=== PATIENT | female | born 1980 | race Caucasian/White ===

== ENCOUNTER 2021-05-15 11:32 | Outpatient (REF) | payer OTHER, SELFPAY ==
--- NOTE | ~2021-05-15 | XR_ITS ---
EXAMINATION: XR KNEE, RIGHT CLINICAL INFORMATION: Pain. COMPARISON: None TECHNIQUE: Four views of the right knee. FINDINGS: Normal alignment. Joint spaces are maintained. No visible acute fracture or dislocation. Moderate to large joint effusion. XR/XR knee RT 4V IMPRESSION: Moderate to large joint effusion. No radiographically evident acute fracture seen. Further evaluation with MRI as clinically warranted.
== END 2021-05-15 11:33 | disposition home or self-care (01) ==
LOC: HO.HMGCX 11:32
PROVIDERS: Visit Provider Internal Medicine
DX: S83.91XD Sprain of unspecified site of right knee, subsequent encounter (principal)
CPT/HCPCS: 73564

== ENCOUNTER 2023-01-07 08:00 | Outpatient (AMB) | payer OTHER, SELFPAY ==
--- NOTE | 2023-01-07 08:01 | AM.OFFWIN_ITS ---
Intake Vital Signs 01/07/23 08:06 Height 5 ft 1 in Weight 172 lb BMI 32.5 BP 110/62 Blood Pressure Location Lt brachial Position Sitting Pulse 79 Pulse Source Pulse Oximeter Temp 97.8 F Temp Source Temporal Artery Scan Pulse Oximetry (%) 98 Intake Visit Reasons: EP LT knee Intake Note: pt is here for c/o left knee pain with swelling, yesterday while playing softball Patient Tobacco Use Status: Never used Tobacco Allergies amoxicillin Allergy (Mild, Verified 01/07/23 08:52) Rash Medication List - Last Reconciled 01/07/23 by Kameron Servin MD meloxicam 15 mg PO DAILY Do you need a note to return to daycare/school/sports/work: Yes HPI EP LT knee HPI Details 42-year-old female presents to the [facility] for a sick visit. Patient is reporting swelling in the left knee since the past 2 days. Symptoms started after she slipped while running to a base, while playing softball. She could not play anymore after the fall. Walking with a limp. PFSH Social History Patient Tobacco Use Status: Never used Tobacco Physical Exam Vital Signs: Last Vital Signs Temp 97.8 F 01/07/23 08:06 Pulse 79 01/07/23 08:06 BP 110/62 01/07/23 08:06 Pulse Ox 98 01/07/23 08:06 BMI result Body Mass Index 32.5 Extrem Other: Left leg: Swelling over and above the patella. Pain on flexion of the knee. Full extension. Assessment & Plan Assessment & Plan (1) Sprain of left knee: Code(s): S83.92XA - Sprain of unspecified site of left knee, initial encounter Plan: Keep the leg elevated. X-ray images were personally reviewed by me. Loose body noted. Significant effusion. Patient was advised to keep the foot elevated. Knee splint provided. Anti inflammatories ordered. If symptoms do not improve in a week, she should schedule an appointment with her PCP to get an orthopedic referral. Medications: New meloxicam 15 mg PO DAILY 14 tabs 0RF Coding Level of Care Code Est Pt Level 4 (89750) Diagnoses Sprain of left knee S83.92XA
[2023-01-07 08:06] VITALS: BP 110/62; PULSE 79; TEMP 36.6; O2SAT 98; BMI 32.5
== END 2023-01-07 08:56 | disposition home or self-care (01) ==
PROVIDERS: PCP Internal Medicine; Visit Provider Internal Medicine
DX: S83.92XA Sprain of unspecified site of left knee, initial encounter (principal)
CPT/HCPCS: 99214

== ENCOUNTER 2023-01-07 08:16 | Outpatient (REF) | payer OTHER, SELFPAY ==
--- NOTE | ~2023-01-07 | XR_ITS ---
EXAMINATION: XR KNEE, LEFT CLINICAL INFORMATION: Left knee sprain. COMPARISON: None available. TECHNIQUE: Four views of the left knee. FINDINGS: Alignment is anatomic. Joint spaces are maintained. No displaced fracture. Moderate suprapatellar joint effusion. XR/XR knee LT 4V IMPRESSION: Moderate suprapatellar joint effusion.
== END 2023-01-07 08:17 | disposition home or self-care (01) ==
LOC: HO.HMGCX 08:16
PROVIDERS: PCP Internal Medicine; Visit Provider Internal Medicine
DX: S83.92XD Sprain of unspecified site of left knee, subsequent encounter (principal)
CPT/HCPCS: 73564

== ENCOUNTER 2023-03-08 07:33 | Outpatient (AMB) | payer OTHER, SELFPAY ==
[2023-03-08 07:47] VITALS: BP 122/74; PULSE 76; O2SAT 97; BMI 32.7
--- NOTE | 2023-03-08 07:47 | MHC.PC.OV ---
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 Required: No Accompanied by: Self / Same As Patient Allergies amoxicillin Allergy (Mild, Verified 03/08/23 07:47) Rash Medication List - Last Reconciled 03/08/23 by Teri Rodrigues MD No Known Home Meds Tobacco use date assessed: 03/08/23 Dental Screening Dental Screen Date: 03/08/23 Did you have a dental visit in the last 12 months?: Yes Did you have a dental problem in the last 6 months where you did not have access to dental care?: No Was dental information given to patient?: Patient has dentist HPI 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 Pt had L knee injury while playing softball 2 months ago and still with pain at medial aspect of her left knee worse when walking up or down his stairs or stretching. Patient reports intermittent knee swelling. 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 1. Little interest or pleasure in doing things: not at all 2. Feeling down, depressed, or hopeless: not at all 3. Trouble falling or staying asleep, or sleeping too much: not at all 4. Feeling tired or having little energy: not at all 5. Poor appetite or overeating: not at all 6. Feeling bad about yourself - or that you are a failure or have let yourself or your family down: not at all 7. Trouble concentrating on things, such as reading the newspaper or watching television: not at all 8. Moving or speaking so slowly that other people could have noticed. Or the opposite - being so fidgety or restless that you have been moving around a lot more than usual: not at all 9. Thoughts that you would be better off or of hurting yourself in some way: not at all Total score: 0 Depression Screening Interpretation: Negative Depression Screening Done: Yes 59991 - PHQ-9 Billing: Yes Source: Developed by Drs. Jeff Pemberton, Jenn Chance, Mario Alberto Greene and colleagues, with an educational abundio from [employer]. Thrive Questionnaire Date Thrive assessed: 03/08/23 I am a: Patient What is your living situation today?: I have a steady place to live Within the past 12 months, did the food you bought not last and you didn't have the money to get more?: Never true Within the past 12 months, did you worry whether your food would run out before you got money to buy more?: Never true Do you have trouble paying for medicines?: No Do you have trouble getting transportation to medical appointments?: No Do you have trouble paying your heating and electricity bill?: No Do you have trouble taking care of your child, family member or friend?: No Do you have trouble with day-to-day activities such as bathing, preparing meals, shopping, managing finances, etc.?: No Are you currently unemployed and looking for a job?: No Are you interested in more education?: No Please select the resources that you would like help with: None Currently or been in a relationship where the following occur: no concerns reported AUDIT C Alcohol Use Questionnaire (AUDIT-C) 1. How often do you have a drink containing alcohol?: 2-4 times a month 2. How many drinks containing alcohol do you have on a typical day when you are drinking?: 1 or 2 3. How often do you have six or more drinks on one occasion?: Never Total Score: 2 Score Reviewed/Action Taken: Yes RENEE-7 AMB Questionnaire RENEE-7 Date RENEE - 7 assessed: 03/08/23 Feeling nervous, anxious, or on edge: 0 = Not at all Not being able to stop or control worryin = Not at all Worrying too much about different things: 0 = Not at all Trouble relaxin = Not at all Being so restless that it is hard to sit still: 0 = Not at all Becoming easily annoyed or irritable: 0 = Not at all Feeling afraid as if something awful might happen: 0 = Not at all Total RENEE-7 score (0-4 normal; 5-9 mild; 10-14 moderate; 15-21 severe): 0 Source: Developed by Drs. Jeff Pemberton, Jenn Chance, Mario Alberto Greene and colleagues, with an educational abundio from [employer]. RENEE-7 Assessment Billing RENEE-7 Assessment Tool: RENEE-7 Assessment 43984 Review of Systems Const All systems reviewed & are unremarkable except as noted in HPI and below Reports no additional complaints Eyes Reports no additional complaints ENT Reports no additional complaints Card Reports no additional complaints Resp Reports no additional complaints GI Reports no additional complaints Reports no additional complaints Physical exam (Primary Care) Vital Signs: Last Vital Signs Pulse 76 03/08/23 07:47 BP 122/74 03/08/23 07:47 Pulse Ox 97 03/08/23 07:47 Oxygen Delivery Method Room Air 03/08/23 07:47 BMI result Body Mass Index 32.7 Tobacco/Smoking Status: Tobacco use Status Tobacco use date assessed 03/08/23 03/08/23 07:49 Patient Tobacco Use Status Never used Tobacco 03/08/23 07:54 e-Cigarette/Vaping Use Never Used 03/08/23 07:54 PHQ-9: PHQ-9 Score PHQ-9: Total score 0 03/08/23 07:59 Depression Screening Interpretation: Negative Thrive Assessment: Date of Thrive Assessment Date Thrive assessed 03/08/23 03/08/23 07:59 Currently or been in a relationship where the following occur: no concerns reported Const General: no acute distress HENMT Head: Yes normal to inspection General nose exam: Normal external nose present Mouth: Normal oral and palatal mucosa present Throat: Yes posterior oropharynx normal Eyes General: appearance normal, both eyes and all related structures Neck Neck: Yes no lymphadenopathy and Yes supple Resp Effort & Inspection: normal respiratory effort Auscultation: clear to auscultation bilaterally Cardio Rhythm: regular rhythm Heart sounds: S1 normal heart sound present and S2 normal heart sound present GI Inspection: Yes normal to inspection Palpation (GI): Soft to palpation Percussion: Yes normal to percussion Auscultation: normal bowel sounds Extrem Other: Decreased range of motion of the left knee, medial aspect tenderness and soft tissue swelling Assessment and Plan Assessment & Plan (1) Annual physical exam: Code(s): Z00.00 - Encounter for general adult medical examination without abnormal findings Plan: WELL-BALANCED DIET REGULAR PHYSICAL ACTIVITY WEIGHT LOSS DISCUSSED WITH THE PATIENT. She will have a fasting blood work today. mammogram and colonoscopy will be scheduled. patient will return in 2 weeks for Pap smear (2) HPV (human papilloma virus) infection: Code(s): B97.7 - Papillomavirus as the cause of diseases classified elsewhere Plan: Return for Pap smear in 2 weeks (3) History of colposcopy: Comment: S/P bx >10 yrs Code(s): Z98.890 - Other specified postprocedural states (4) Medial meniscus tear: Code(s): S83.249A - Other tear of medial meniscus, current injury, unspecified knee, initial encounter Plan: Obtain MRI to evaluate for medial meniscus tear (5) Rectal bleeding: Code(s): K62.5 - Hemorrhage of anus and rectum Plan: Refer for colonoscopy Orders: Orders Comprehensive [place]. Panel Fast Today Z00.00 - Encounter for general adult medical examination without abnormal findings Complete Blood Count Auto Diff Today Z00.00 - Encounter for general adult medical examination without abnormal findings Lipid Panel Today Z00.00 - Encounter for general adult medical examination without abnormal findings TSH reflex Free T4 Today Z00.00 - Encounter for general adult medical examination without abnormal findings Vitamin D 25-OH Total Today Z00.00 - Encounter for general adult medical examination without abnormal findings MR knee LT wo con Today S83.249A - Other tear of medial meniscus, current injury, unspecified knee, initial encounter MM screening mammo BI Today Z12.31 - Encounter for screening mammogram for malignant neoplasm of breast HIV Ab/Ag Today Z00.00 - Encounter for general adult medical examination without abnormal findings Syphilis Screen Today Z00.00 - Encounter for general adult medical examination without abnormal findings CT NG by PCR Today Z00.00 - Encounter for general adult medical examination without abnormal findings Referrals Gastroenterology Referral K62.5 - Hemorrhage of anus and rectum, Z00.00 - Encounter for general adult medical examination without abnormal findings Coding Level of Care Code New Pt Prev Care 40-64y(89864) Diagnoses Annual physical exam Z00.00 HPV (human papilloma virus) infection B97.7 History of colposcopy Z98.890 Medial meniscus tear S83.249A Rectal bleeding K62.5 Additional Codes RENEE-7 Assessment Billing - RENEE-7 Assessment Tool: RENEE-7 Assessment [id number] ([id number])
== END 2023-03-08 08:39 | disposition home or self-care (01) ==
PROVIDERS: PCP Internal Medicine; Visit Provider Internal Medicine
DX: Z00.00 Encounter for general adult medical examination without abnormal findings (principal); B97.7 Papillomavirus as the cause of diseases classified elsewhere; Z98.890 Other specified postprocedural states; S83.249A Other tear of medial meniscus, current injury, unspecified knee, initial encounter; K62.5 Hemorrhage of anus and rectum
CPT/HCPCS: 99386

== ENCOUNTER 2023-03-08 08:28 | Outpatient (REF) | payer OTHER, SELFPAY ==
[2023-03-08 11:16] LABS: MANUAL DIFF FLAG NO
[2023-03-08 11:22] LABS: Basophils Absolute Auto 0.1 X10*3/uL (0.0-0.2); Basophils Percent Auto 0.6 % (0-2); Eosinophils Absolute Auto 0.3 X10*3/uL (0.0-0.4); Eosinophils Percent Auto 3.6 % (0-4); Hemoglobin 14.8 g/dl (12.0-16.0); Imm Gran Abs Auto 0.06 X10*3/uL (0.00-0.03); Imm Gran Pct Auto 0.7 % (0.0-0.4); Lymphocytes Absolute Auto 2.1 X10*3/uL (1.2-4.9); Lymphocytes Percent Auto 24.3 % (20-40); Mean Corpuscular HGB Conc 32.9 g/dl (31.0-35.0); Mean Corpuscular Hemoglobin 30.6 pg (27.0-33.0); Mean Corpuscular Volume 93.2 fL (80.0-98.0); Mean Platelet Volume 10.4 fL (9.4-12.3); Monocytes Absolute Auto 0.8 X10*3/uL (0.1-1.2); Monocytes Percent Auto 8.5 % (2-11); Neutrophils Absolute Auto 5.5 x10*3/uL (2.0-8.3); Neutrophils Percent Auto 62.3 % (45-73); Platelet Count 403 X10*3/uL (160-400); Red Blood Count 4.83 X10*6/uL (4.20-5.50); Red Cell Distribution Width 13.4 % (11.0-16.0); White Blood Count 8.8 X10*3/uL (4.8-10.8)
[2023-03-08 11:51] LABS: Alanine Aminotransferase 14 U/L (0-31); Albumin Level 4.2 g/dL (3.5-5.0); Alkaline Phosphatase 66 U/L (39-117); Anion Gap 12 (12-20); Aspartate Amino Transferase 17 U/L (5-31); Bilirubin Total 0.3 mg/dL (0.0-1.0); Blood Urea Nitrogen 14 mg/dL (9-16); Calcium 9.3 mg/dL (8.4-10.2); Carbon Dioxide 29 mmol/L (22-29); Chloride 106 mmol/L (96-108); Cholesterol 247 mg/dL (<200); Estimated Glomerular Filt Rate > 60; Glucose Fasting 93 mg/dL (60-99); HDL Cholesterol 61 mg/dL (>40); LDL Cholesterol Calculated 149 mg/dL (<100); Potassium 4.7 mmol/L (3.3-5.1); Sodium 142 mmol/L (135-145); Total Protein 7.6 g/dL (6.5-8.0); Triglycerides 188 mg/dL (<150)
[2023-03-08 12:02] LABS: HIV AB/AG Nonreactive (Nonreactive); HIV Num 1 0.05 S/CO (0.00-0.99)
[2023-03-08 12:05] LABS: Syphilis Screen Nonreactive (Nonreactive)
[2023-03-08 12:08] LABS: TSH reflex Free T4 1.69 uIU/mL (0.32-4.0); Vitamin D 25-OH Total 25.1 ng/mL (>30)
== END 2023-03-08 08:29 | disposition home or self-care (01) ==
LOC: HO.HMGCLDS 08:28
PROVIDERS: PCP Internal Medicine; Visit Provider Internal Medicine
DX: Z00.00 Encounter for general adult medical examination without abnormal findings (principal); Z11.4 Encounter for screening for human immunodeficiency virus [HIV]
CPT/HCPCS: 36415; 80053; 80061; 82306; 84443; 85025; 86780; 87389

== ENCOUNTER 2023-03-12 13:26 | Outpatient (REF) | payer OTHER, SELFPAY | END 2023-03-12 13:27 | disposition home or self-care (01) | LOC: HO.LAB 13:26 | PROVIDERS: Visit Provider Internal Medicine | DX: Z13.89 Encounter for screening for other disorder (principal) ==

== ENCOUNTER 2023-03-25 13:24 | Outpatient (AMB) | payer OTHER, SELFPAY ==
--- NOTE | 2023-03-25 13:30 | A.OFFPC_ITS ---
Vital Signs 03/25/23 13:31 Height 5 ft 1 in Weight 170 lb BMI 32.1 BP 118/76 Blood Pressure Location Rt brachial Position Sitting Pulse 94 Pulse Source Pulse Oximeter Pulse Oximetry (%) 99 Oxygen Delivery Method Room Air Intake Visit Reasons: Pap Per Intake Note: Pt is here today for a follow up to have pap done. Allergies amoxicillin Allergy (Mild, Verified 03/25/23 13:35) Rash Medication List - Last Reconciled 03/25/23 by Teri Rodrigues MD No Known Home Meds Tobacco use date assessed: 03/25/23 Dental Screening Dental Screen Date: 03/25/23 Did you have a dental visit in the last 12 months?: Yes Did you have a dental problem in the last 6 months where you did not have access to dental care?: No Was dental information given to patient?: Patient has dentist HPI Pap Per HPI Details Patient presents for Pap smear. She denies complaints. 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 1. Little interest or pleasure in doing things: not at all 2. Feeling down, depressed, or hopeless: not at all 3. Trouble falling or staying asleep, or sleeping too much: not at all 4. Feeling tired or having little energy: not at all 5. Poor appetite or overeating: not at all 6. Feeling bad about yourself - or that you are a failure or have let yourself or your family down: not at all 7. Trouble concentrating on things, such as reading the newspaper or watching television: not at all 8. Moving or speaking so slowly that other people could have noticed. Or the opposite - being so fidgety or restless that you have been moving around a lot more than usual: not at all 9. Thoughts that you would be better off or of hurting yourself in some way: not at all Total score: 0 Depression Screening Interpretation: Negative Depression Screening Done: Yes 70518 - PHQ-9 Billing: Yes Source: Developed by Drs. Jeff Pemberton, Jenn Chance, Mario Alberto Greene and colleagues, with an educational abundio from [email or web address]. Thrive Questionnaire Date Thrive assessed: 03/25/23 I am a: Patient What is your living situation today?: I have a steady place to live Within the past 12 months, did the food you bought not last and you didn't have the money to get more?: Never true Within the past 12 months, did you worry whether your food would run out before you got money to buy more?: Never true Do you have trouble paying for medicines?: No Do you have trouble getting transportation to medical appointments?: No Do you have trouble paying your heating and electricity bill?: No Do you have trouble taking care of your child, family member or friend?: No Do you have trouble with day-to-day activities such as bathing, preparing meals, shopping, managing finances, etc.?: No Are you currently unemployed and looking for a job?: No Are you interested in more education?: No Please select the resources that you would like help with: None Currently or been in a relationship where the following occur: no concerns reported RENEE-7 AMB Questionnaire RENEE-7 Date RENEE - 7 assessed: 03/25/23 Feeling nervous, anxious, or on edge: 0 = Not at all Not being able to stop or control worryin = Not at all Worrying too much about different things: 0 = Not at all Trouble relaxin = Not at all Being so restless that it is hard to sit still: 0 = Not at all Becoming easily annoyed or irritable: 0 = Not at all Feeling afraid as if something awful might happen: 0 = Not at all Total RENEE-7 score (0-4 normal; 5-9 mild; 10-14 moderate; 15-21 severe): 0 Source: Developed by Drs. Jeff Pemberton, Jenn Chance, Mario Alberto Greene and colleagues, with an educational abundio from [email or web address]. Review of Systems Const All systems reviewed & are unremarkable except as noted in HPI and below Reports no additional complaints Eyes Reports no additional complaints ENT Reports no additional complaints Card Reports no additional complaints Resp Reports no additional complaints GI Reports no additional complaints Reports no additional complaints Physical exam (Primary Care) Vital Signs: Last Vital Signs Pulse 94 03/25/23 13:31 BP 118/76 03/25/23 13:31 Pulse Ox 99 03/25/23 13:31 Oxygen Delivery Method Room Air 03/25/23 13:31 BMI result Body Mass Index 32.1 Tobacco/Smoking Status: Tobacco use Status Tobacco use date assessed 03/25/23 03/25/23 13:39 Patient Tobacco Use Status Never used Tobacco 03/25/23 13:39 e-Cigarette/Vaping Use Never Used 03/25/23 13:33 PHQ-9: PHQ-9 Score PHQ-9: Total score 0 03/25/23 14:22 Depression Screening Interpretation: Negative Thrive Assessment: Date of Thrive Assessment Date Thrive assessed 03/25/23 03/25/23 13:39 Currently or been in a relationship where the following occur: no concerns reported Const General: no acute distress HENMT Head: Yes normal to inspection Neck Neck: Yes supple Resp Effort & Inspection: normal respiratory effort Auscultation: clear to auscultation bilaterally Cardio Rhythm: regular rhythm Heart sounds: S1 normal heart sound present and S2 normal heart sound present GI Inspection: Yes normal to inspection Palpation (GI): Soft to palpation Percussion: Yes normal to percussion Auscultation: normal bowel sounds External Female Exam: normal external appearance Speculum Exam - Vagina: normal appearance of the vagina Speculum Exam - Cervix: normal appearance of the cervix Bimanual exam- vagina & uterus: normal bimanual exam Extrem General: Yes no clubbing, cyanosis or edema Assessment and Plan Assessment & Plan (1) Normal gynecologic examination: Code(s): Z01.419 - Encounter for gynecological examination (general) (routine) without abnormal findings Plan: Pap smear was done (2) Sprain of left knee: Code(s): S83.92XA - Sprain of unspecified site of left knee, initial encounter Plan: Awaiting knee MRI Orders: Orders UA w Microscopic Today Z00.00 - Encounter for general adult medical examination without abnormal findings Pap Smear Today Z00.00 - Encounter for general adult medical examination without abnormal findings Coding Level of Care Code Est Pt Level 3 (44246) Diagnoses Normal gynecologic examination Z01.419 Sprain of left knee S83.92XA
[2023-03-25 13:31] VITALS: BP 118/76; PULSE 94; O2SAT 99; BMI 32.1
== END 2023-03-25 14:41 | disposition home or self-care (01) ==
PROVIDERS: PCP Internal Medicine; Visit Provider Internal Medicine
DX: S83.92XA Sprain of unspecified site of left knee, initial encounter (principal); Z12.4 Encounter for screening for malignant neoplasm of cervix
CPT/HCPCS: 99213

== ENCOUNTER 2023-03-25 14:27 | Outpatient (REF) | payer OTHER, SELFPAY ==
[2023-03-26 02:36] LABS: CT PCR NOT DETECTED (Not Detect.); NG PCR NOT DETECTED (Not Detect.)
== END 2023-03-25 14:28 | disposition home or self-care (01) ==
LOC: HO.HMGCLDS 14:27
PROVIDERS: PCP Internal Medicine; Visit Provider Internal Medicine
DX: Z00.00 Encounter for general adult medical examination without abnormal findings (principal); Z20.2 Contact with and (suspected) exposure to infections with a predominantly sexual mode of transmission
CPT/HCPCS: 0353U; 81001

== ENCOUNTER 2023-03-25 14:31 | Outpatient (REF) | payer OTHER, SELFPAY ==
[2023-03-30 09:29] LABS: HPV mRNA E6/E7 Detected (Not Detected)
== END 2023-03-25 14:32 | disposition home or self-care (01) ==
LOC: HO.LNP 14:31
PROVIDERS: Visit Provider Internal Medicine
DX: Z01.419 Encounter for gynecological examination (general) (routine) without abnormal findings (principal); Z11.51 Encounter for screening for human papillomavirus (HPV)
CPT/HCPCS: 87624; 88142

== ENCOUNTER 2023-04-12 07:15 | Outpatient (REF) | payer OTHER, SELFPAY ==
--- NOTE | ~2023-04-12 | MM_ITS ---
EXAMINATION: MM SCREENING DIGITAL BREAST TOMOSYNTHESIS, BILATERAL CLINICAL INFORMATION: Screening. Asymptomatic. This is a baseline mammogram. COMPARISON: Mammography: This study is compared with prior exams dating back to TECHNIQUE: Digital breast tomosynthesis is performed in both the craniocaudal and mediolateral oblique views along with computer-aided detection (CAD). Synthesized 2D images are generated from the tomosynthesis. FINDINGS: There are scattered areas of fibroglandular density (ACR BI-RADS breast composition Category b). There are no significant masses, abnormal calcifications, or other abnormalities. MM/MM tomosynthesis screening BI IMPRESSION: No mammographic evidence of malignancy. ASSESSMENT: BI-RADS BI-RADS 1 - Negative RECOMMENDATION: Routine annual mammography screening. 1 year F/U This examination should not preclude the clinical evaluation of a suspicious palpable abnormality. This patient's information was entered into a reminder system with a target due date for their next mammogram.
== END 2023-04-12 07:16 | disposition home or self-care (01) ==
LOC: HO.MAMMO 07:15
PROVIDERS: PCP Internal Medicine; Visit Provider Internal Medicine
DX: Z12.31 Encounter for screening mammogram for malignant neoplasm of breast (principal)
CPT/HCPCS: 77063; 77067

== ENCOUNTER → 2023-04-12 07:30 | Outpatient (BNV) | payer OTHER, SELFPAY | PROVIDERS: PCP Internal Medicine; Visit Provider Radiology Diagnostic Radiology | DX: Z12.31 Encounter for screening mammogram for malignant neoplasm of breast (principal) | CPT/HCPCS: 77063; 77067 ==

== ENCOUNTER 2023-05-14 08:45 | Outpatient (AMB) | payer OTHER, SELFPAY ==
[2023-05-14 08:58] VITALS: BMI 32.1
--- NOTE | 2023-05-14 08:58 | MHC.OFFVIS ---
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 Patient reports her pain has been going on for about five months and is a 4 on the 1-10 pain scale and is going down into the calf. She states she injured her knee while playing softball in December 2022. She is using a knee sleeve when she knows that she is going to be on her feet for a long time. Allergies amoxicillin Allergy (Mild, Verified 05/14/23 09:03) Rash Medication List - Last Reconciled 05/15/23 by Ji Carvajal MD No Known Home Meds [facility] Surgical History No pertinent past surgical history Family History Mother Diabetes Father Prostate cancer Paternal Uncle Colon cancer Social History Household Members Other:: execise 3 x a week Housing: House (with parents ) Alcohol intake: current Alcohol intake frequency: a few times a week Alcohol type: other Comment: twisted teas Patient Tobacco Use Status: Never used Tobacco e-Cigarette/Vaping Use: Never Used service: No Current occupational status: employed 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 [employer] Current occupational exposures/hazards: No Cognitive needs: No Hearing needs: No Vision needs: No Physical Exam Vital Signs: BMI result Body Mass Index 32.1 Const Other: Well-nourished well-developed very friendly female awake alert and oriented x3 in no acute distress Extrem Other: Bilateral lower extremity examination shows good capillary refill, no skin lesions noted, normal sensation light touch Left knee examination shows a minimal effusion, minimal crepitus with range of motion, tenderness along her medial joint line, positive Jairo's test, no instability Results Reviewed Results Reviewed: MRI of the patient's left knee shows a vertical tear of the posterior horn of the medial meniscus, attenuation of the anterior cruciate ligament, no acute bony abnormalities Assessment & Plan Assessment & Plan (1) Medial meniscus tear: Code(s): S83.249A - Other tear of medial meniscus, current injury, unspecified knee, initial encounter Plan Ms. Larsen presents with left knee pain and mechanical symptoms due to a vertical tear of the posterior horn of her medial meniscus as well as possible partial-thickness tearing of her anterior cruciate ligament. I had a lengthy discussion with the patient regarding the treatment options. At this point the patient has failed continued non operative treatments. The patient would likely benefit significantly from left knee surgery. Because of the location of her meniscus tear she might be a candidate for a meniscus repair. Thus, I will have her evaluated by Dr. Ross who performs this type of surgery if indicated. She will follow-up as instructed. Feel free to call me at any time should questions regarding her orthopedic management arise. I spent 22 minutes in reviewing the patient's records and imaging studies, seeing the patient and documenting in the medical record. Coding Level of Care Code New Pt Level 2 (76960) Diagnoses Medial meniscus tear S83.249A
== END 2023-05-14 09:35 | disposition home or self-care (01) ==
PROVIDERS: PCP Internal Medicine; Visit Provider Orthopaedic Surgery
DX: S83.249A Other tear of medial meniscus, current injury, unspecified knee, initial encounter (principal)
CPT/HCPCS: 99202

== ENCOUNTER → 2023-05-14 08:45 | Outpatient (BNVA) | payer OTHER, SELFPAY | PROVIDERS: PCP Internal Medicine; Visit Provider Orthopaedic Surgery ==

== ENCOUNTER 2023-05-24 09:46 | Outpatient (AMB) | payer OTHER, SELFPAY ==
[2023-05-24 09:49] VITALS: BMI 32.1
--- NOTE | 2023-05-24 09:49 | MHC.OFFVIS ---
Intake Vital Signs 05/24/23 09:49 Height 5 ft 1 in Weight 170 lb BMI 32.1 Intake Visit Reasons: OV- Lt knee meniscus tear, SX consult Intake Note: Bree is a 43 year old female who presents today for discussion of possible surgical intervention of her left knee medial meniscus tear. She injured in the knee in December of 2022 while playing softball and was later seen with Dr. Carvajal who referred her to Dr. Ross for surgical discussion. Allergies amoxicillin Allergy (Mild, Verified 05/14/23 09:03) Rash HPI OV- Lt knee meniscus tear, SX consult HPI Details This is a 43-year-old woman with a six-month history of a left knee injury. She describes a painful twisting injury as she was sliding into base playing softball last summer. She has been unable to straighten her leg fully since the injury. At the time her knee swelled and she was unable to continue playing. She is active and healthy. She would like to be able to play softball and ski in the future. 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 Resp Other: No audible wheezing Effort & Inspection: normal respiratory effort Cardio Other: Radial pulse palpable with no rythmic abnormalities Back/Spine/Pelvis Cervical Spine: normal cervical lordosis Skin General skin exam: no rashes or lesions noted Neuro General: no focal motor deficits Extrem Other: Left knee with TTP over medial joint line 1+ Martin's but 10 deg loss of terminal extension Psych Appearance: grossly normal and well kempt Mental Status: mental status grossly normal Speech and movement: Normal speech and movement present Affect: normal affect Attitude: cooperative Results Reviewed Results Reviewed: Medial meniscus posterior thirde vertical longitudinal tear in red-white junction The ACL is not well visualized and there is soft tissue in the notch which may represent ACL partial tear Assessment & Plan Assessment & Plan (1) Medial meniscus tear: Code(s): S83.249A - Other tear of medial meniscus, current injury, unspecified knee, initial encounter Plan: This is a 43 yo active F with a medial meniscus tear that may be repairable. I discussed this with her and explained the surgery and the timeline for recovery. She understands and would like to proceed forward. I discussed the risks benefits and alternatives including but not limited to the risk of pain, infection, stiffness, need for further surgery as well as potential medical complications . (2) ACL tear: Code(s): S83.519A - Sprain of anterior cruciate ligament of unspecified knee, initial encounter Plan: Bere cannot straighten her knee and her ACL appears torn on the MRI. She is not clinically unstable although in the setting of stiffness and loss of terminal extension this may not be reliable. I recommend we be prepared for ACL reconstruction with allograft. I discussed this with her and explained the procedure. I discussed the risks benefits and alternatives including but not limited to the risk of pain, infection, stiffness, need for further surgery as well as potential medical complications such as blood clots, pulmonary embolism and cardiac complications. Coding Level of Care Code Est Pt Level 4 (77464) Diagnoses Medial meniscus tear S83.249A ACL tear S83.519A
== END 2023-05-24 10:33 | disposition home or self-care (01) ==
PROVIDERS: PCP Internal Medicine; Visit Provider Orthopaedic Surgery
DX: S83.249A Other tear of medial meniscus, current injury, unspecified knee, initial encounter (principal); S83.519A Sprain of anterior cruciate ligament of unspecified knee, initial encounter
CPT/HCPCS: 99214

== ENCOUNTER → 2023-05-24 09:46 | Outpatient (BNVA) | payer OTHER, SELFPAY | PROVIDERS: PCP Internal Medicine; Visit Provider Orthopaedic Surgery ==

== ENCOUNTER 2023-05-28 14:25 | Outpatient (AMB) | payer OTHER, SELFPAY ==
--- NOTE | 2023-05-28 14:30 | A.OFFVIS_ITS ---
Intake Vital Signs 05/28/23 14:34 Height 5 ft 1 in Weight 167 lb 8.821 oz BMI 31.7 BP 126/58 L Blood Pressure Location Lt brachial Position Sitting Pulse 82 Intake Visit Reasons: Rectum Hemorrhage, [place] Screening Intake Note: Bere presents in the office as a new patient. CC: she states that she has a surgery coming up - July 23 so she wants her colonoscopy before that. She states that the only time she bleeds is when she has spicy foods. Production Support Consultant Required: No Allergies amoxicillin Allergy (Mild, Verified 05/28/23 14:34) Rash ivory soap Allergy (Mild, Uncoded 05/28/23 14:35) Rash Medication List - Last Reconciled 05/28/23 by Felicita Bassett PA-C No Known Home Meds HPI HPI Comments History of Present Illness Details A 43-year-old female referred with rectal bleeding- was to have colonoscopy last year- never booked per her report- Bleeding increases when she eats spicy food-blood in the stool- she gets loose stool with spicey She has known internal hemorrhoids- uses nothing - Otherwise- healthy no issues No medications Having knee surgery in July [facility] Surgical History No pertinent past surgical history Family History Mother Diabetes Father Prostate cancer Paternal Uncle Colon cancer Social History Household Members Other:: execise 3 x a week Housing: House (with parents ) Alcohol intake: current Alcohol intake frequency: a few times a week Alcohol type: other Comment: twisted teas Patient Tobacco Use Status: Never used Tobacco e-Cigarette/Vaping Use: Never Used service: No Current occupational status: employed 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 [employer] Current occupational exposures/hazards: No Cognitive needs: No Hearing needs: No Vision needs: No Review of Systems Const All systems reviewed & are unremarkable except as noted in HPI and below Card Denies chest pain and Denies dyspnea Resp Denies dyspnea GI Reports hematochezia, Denies nausea and Denies vomiting Musc Reports abnormal gait and Reports arthralgias Neuro Reports abnormal gait Physical Exam Vital Signs: Last Vital Signs Pulse 82 05/28/23 14:34 BP 126/58 L 05/28/23 14:34 BMI result Body Mass Index 31.7 Const General: cooperative, healthy appearing, comfortable and no acute distress Orientation/consciousness: patient oriented x3 Limitations: no limitations Eyes Sclerae: sclerae normal Resp Effort & Inspection: normal respiratory effort and able to speak in complete sentences Auscultation: clear to auscultation bilaterally, no rales, no rhonchi and no wheezes Cardio Rate: regular rate Rhythm: regular rhythm Heart sounds: S1 normal heart sound present and S2 normal heart sound present GI Palpation (GI): Soft to palpation and nontender Auscultation: normal bowel sounds Skin General skin exam: no rashes or lesions noted Neuro General: patient oriented x3 Extrem General: Yes full ROM Psych Appearance: grossly normal Mental Status: mental status grossly normal Speech and movement: Normal speech and movement present Affect: Anxious affect present Attitude: cooperative Thought process: Normal thought process present Thought content: Normal thought content present Insight: Good insight present (Psych) Judgement: Good judgement present (Psych) Assessment & Plan Assessment & Plan (1) Rectal bleeding: Comment: MLC- hemorrhoidal- avoid strain-r/o IBD, other underlynig cause Disc- rare risks, need for escort Code(s): K62.5 - Hemorrhage of anus and rectum Plan: HFD- Plan Colonoscopy MG prep Orders: Orders Colonoscopy - GI Use Only Today K62.5 - Hemorrhage of anus and rectum Medications: New bisacodyl (Dulcolax (bisacodyl)) Day before procedure @ 12 noon Take 4 tablets by mouth followed by large glass of water 20 mg (4 x 5 mg) PO ONCE PRN 4 tabs 0RF colonoscopy prep 1 day Z12.11 - Encounter for screening for malignant neoplasm of colon polyethylene glycol 3350 (Miralax) Take as directed by mouth the day before your procedure. 238 grams PO ONCE PRN 238 grams 0RF laxative effect 1 day Patient Instructions: Colonoscopy MG prep, reviewed, lit given call with concerns Coding Level of Care Code New Pt Level 3 (15864) Diagnoses Rectal bleeding K62.5 Time Spent (min) 25
[2023-05-28 14:34] VITALS: BP 126/58; PULSE 82; BMI 31.7
== END 2023-05-28 14:58 | disposition home or self-care (01) ==
PROVIDERS: PCP Internal Medicine; Visit Provider Physician Assistant
DX: K62.5 Hemorrhage of anus and rectum (principal)
CPT/HCPCS: 99203

== ENCOUNTER → 2023-05-28 14:25 | Outpatient (BNVA) | payer OTHER, SELFPAY | PROVIDERS: PCP Internal Medicine; Visit Provider Physician Assistant ==

== ENCOUNTER 2023-07-18 10:06 | Outpatient (AMB) | payer OTHER, SELFPAY ==
--- NOTE | 2023-07-18 10:12 | MHC.OFFVIS ---
Vital Signs 07/18/23 10:14 Height 5 ft 1 in Weight 167 lb BMI 31.6 Intake Visit Reasons: Preop LT knee MMR, ACL 07/24/23 NE Intake Note: Bere is a 43 year old female who presents today for a pre op appointment for her LT knee MMR, ACL 07/24/23 NE. Allergies amoxicillin Allergy (Mild, Verified 07/18/23 10:13) Rash ivory soap Allergy (Mild, Uncoded 05/28/23 14:35) Rash HPI HPI Preop LT knee MMR, ACL 07/24/23 NE: Details: 43-year-old female who presents in the office today for his/her preoperative history and physical exam prior to a left knee medial meniscus repair and ACL reconstruction to be performed on 07/24/[address] David Ross. Patient has an allergy history, as follows: -Amoxicillin; rash -Ivory Soap; rash Patient is currently taking, as follows: -Bisacodyl 20 mg PO once pRN -Polyethylene glycol 3350 238 grams PO once PRN Patient has a medical history, as follows: -Hyperlipidemia - Human papilloma virus (HPV) infection Patient has no significant surgical history. Patient has a social history, as follows: -Alcohol: Few times weekly -Employment: [employer] Surgical History No pertinent past surgical history Family History Mother Diabetes Father Prostate cancer Paternal Uncle Colon cancer Social History Household Members Other:: execise 3 x a week Housing: House (with parents ) Alcohol intake: current Alcohol intake frequency: a few times a week Alcohol type: other Comment: twisted teas Patient Tobacco Use Status: Never used Tobacco e-Cigarette/Vaping Use: Never Used service: No Current occupational status: employed Current occupation: [employer] Current occupational exposures/hazards: No Cognitive needs: No Hearing needs: No Vision needs: No Review of Systems Const All systems reviewed & are unremarkable except as noted in HPI and below Physical Exam Vital Signs: BMI result Body Mass Index 31.6 Const General: cooperative, healthy appearing, comfortable, no acute distress, well developed, alert and awake Orientation/consciousness: patient oriented x3 HEENT Head: Yes normal to inspection, Yes normocephalic and Yes atraumatic Mouth: moist mucous membranes Eyes General: appearance normal, both eyes and all related structures EOM: EOMs intact bilaterally Neck Neck: Yes normal visual inspection and Yes no lymphadenopathy Chest Other: no audible wheezing. Resp Other: No audible wheezing Effort & Inspection: normal respiratory effort and able to speak in complete sentences Cardio Other: Radial pulse palpable with no rythmic abnormalities Rate: regular rate Peripheral pulses: Peripheral pulses 2+ throughout GI Inspection: Yes normal to inspection Palpation (GI): Soft to palpation Back/Spine/Pelvis Cervical Spine: normal cervical lordosis Skin General skin exam: no rashes or lesions noted Neuro General: patient oriented x3 Extrem Other: Left knee with TTP over medial joint line 1+ Martin's but 10 deg loss of terminal extension Psych Appearance: grossly normal and well kempt Mental Status: mental status grossly normal Speech and movement: Normal speech and movement present Affect: normal affect Attitude: cooperative Assessment & Plan Assessment & Plan (1) Medial meniscus tear: Code(s): S83.249A - Other tear of medial meniscus, current injury, unspecified knee, initial encounter Category: Medical Qualifiers: Encounter type: subsequent encounter Laterality: left Meniscus tear of knee type: unspecified type Tear current or old: unspecified Qualified Code(s): S83.242D - Other tear of medial meniscus, current injury, left knee, subsequent encounter Plan: Sharath Li - boyfriend [phone] (2) ACL tear: Code(s): S83.519A - Sprain of anterior cruciate ligament of unspecified knee, initial encounter Category: Medical Qualifiers: Encounter type: subsequent encounter Laterality: left Qualified Code(s): S83.512D - Sprain of anterior cruciate ligament of left knee, subsequent encounter Plan Ms. Larsen is a 43-year-old female who presents in the office today for his/her preoperative history and physical exam prior to a left knee medial meniscus repair and ACL reconstruction to be performed on 07/24/[address] David Ross. Patient has an allergy history, as follows: -Amoxicillin; rash -Ivory Soap; rash Patient is currently taking, as follows: -Bisacodyl 20 mg PO once pRN -Polyethylene glycol 3350 238 grams PO once PRN Patient has a medical history, as follows: -Hyperlipidemia -Human papilloma virus (HPV) infection Patient has no significant surgical history. 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 We discussed the risks, benefits and alternatives to the surgery and the rehabilitation course. The risks include infection, bleeding, nerve injury, ongoing pain, swelling, and stiffness, perioperative risk of injury to bones and soft tissues, and blood clots. I have answered all questions and with their understanding they have consented to move forward with a left knee medial meniscus repair and ACL reconstruction to be performed on 07/24/[address] David Ross. Post operative medications were sent to the pharmacy, Oxycodone-acetaminophen 5-325 mg (Percocet) PO Q4-6H PRN, quantity 42 tabs for 7 days and Morphine ER 15 mg (MS Contin) PO Q12H PRN, quantity 6 tabs for 3 days, while in the office today. The patient was instructed that she should obtain the prescription prior to surgery but should not consume until after the procedure; as these should only be taken for post operative pain management. Should the patient take these medications before surgery, a refill will not be sent to the pharmacy until their scheduled refill date. Follow-up will be at the post operative appointment on 07/30/2023 or sooner if needed. Of note: Due to patient allergy, I recommend the use of Clindamycin. Please call her boyfriend, Sharath Li, at [phone]. Patient was fitted for a brace while in the office today. Orders: Orders PT Evaluation and Treatment Today S83.242D - Other tear of medial meniscus, current injury, left knee, subsequent encounter, S83.512D - Sprain of anterior cruciate ligament of left knee, subsequent encounter Medications: New morphine ER Partial Fill upon patient request. 15 mg PO Q12H 6 tabs 0RF pain severe 3 days oxycodone-acetaminophen 5-325 mg (Percocet) Partial Fill upon patient request. 1 tab PO Q4-6H PRN 42 tabs 0RF pain 7 days Patient Instructions: Scribed by Clarissa Nguyen director biomedical engineering, for Liana Irizarry PA-C on 07/18/2023 at 10:08 am, EST. Coding Level of Care Code Global (62220) Diagnoses Tear of medial meniscus of left knee, unspecified tear type, unspecified whether old or current tear, subsequent encounter S83.242D Encounter type: subsequent encounter Laterality: left Meniscus tear of knee type: unspecified type Tear current or old: unspecified Rupture of anterior cruciate ligament of left knee, subsequent encounter S83.512D Encounter type: subsequent encounter Laterality: left
[2023-07-18 10:14] VITALS: BMI 31.6
== END 2023-07-18 10:58 | disposition home or self-care (01) ==
PROVIDERS: PCP Internal Medicine; Visit Provider Physician Assistant
DX: S83.242D Other tear of medial meniscus, current injury, left knee, subsequent encounter (principal); S83.512D Sprain of anterior cruciate ligament of left knee, subsequent encounter
CPT/HCPCS: 99024

== ENCOUNTER → 2023-07-18 10:06 | Outpatient (BNVA) | payer OTHER, SELFPAY | PROVIDERS: PCP Internal Medicine; Visit Provider Physician Assistant ==

== ENCOUNTER 2023-07-24 05:59 | Day surgery (SDC) | payer OTHER, SELFPAY ==
[2023-07-22 07:44] VITALS: BMI 32.1
--- NOTE | 2023-07-22 14:20 | P.CONAN_ITS ---
HPI - Anesthesia Eval Consult details Narrative: 43yo F for Left ACL Allograft,with meidal meniscus repair PMFSH Active Problems Active Problems: All Active Problems ACL tear (Acute) Normal gynecologic examination (Acute) Hyperlipidemia (Acute) Rectal bleeding (Acute) Medial meniscus tear (Acute) History of colposcopy (Acute) HPV (human papilloma virus) infection (Acute) Annual physical exam (Acute) Sprain of left knee (Acute) Sprain of right knee (Acute) Family History Family History Mother Diabetes Father Prostate cancer Paternal Uncle Colon cancer Surgical History Surgical History No pertinent past surgical history Social History Social History Household Members Other:: execise 3 x a week Housing: House (with parents ) Alcohol intake: current Alcohol intake frequency: a few times a week Alcohol type: other Comment: twisted teas Patient Tobacco Use Status: Former Tobacco user e-Cigarette/Vaping Use: Never Used service: No Current occupational status: employed 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
[2023-07-24 06:22] VITALS: BMI 33.7
[2023-07-24 06:32] VITALS: BP 123/84; PULSE 80; RESP 16; TEMP 37.1; O2SAT 97
[2023-07-24] MEDS: Lactated Ringers 1,000 ML 100 ML IVCONT (06:47)
[2023-07-24 06:51] LABS: UPreg QC Valid YES; Urine Pregnancy NEGATIVE (NEGATIVE)
--- NOTE | 2023-07-24 07:12 | MHC.SHP ---
Pre-Procedural Eval Section A - 24 Hr Update-Section A only Date of Service: 07/24/23 The patient is an INPATIENT: No Changes since office visit: No Cold of Flu in the past 2 weeks, No New Medical Problems, No Changes in Medication and No Patient answered all questions The patient has been examined within 24 hours of the surgical procedure. The History & Physical has been completed within 30 days and I have reviewed it.: Yes Section B - Complete if H&P > 30 days Chief Complaint: Other tear of medial meniscus, current injury, uns Allergies: Allergies Allergy/AdvReac Type Severity Reaction Status Date / Time amoxicillin Allergy Mild Rash Verified 07/18/23 10:13 ivory soap Allergy Mild Rash Uncoded 05/28/23 14:35 Plan I have reviewed the history and physical and performed a pertinent physical examination on my patient. No changes have occurred unless specified. Time Spent With Patient Time: Total time managing care of this patient today ____ minutes.
--- NOTE | 2023-07-24 09:55 | PM.OP ---
Brief Operative Note Date of Service: 07/24/23 Pre-op diagnosis: left knee MMT/ACL partial tear Post-op diagnosis: other (1) ACL rupture 2) MMT 3) LMT) Procedure: 1) ACL reconstruction 2) Lateral menicus root repair 3) menidal meniscal repair Implants: ACL femoral endobutton ( [employer]) Meniscal FastFix x 2 ( [employer]) Footprint knotless anchor ( [employer] Surgeon: David Ross MD Anesthesia: GETA and regional Was an Field Administrator used for this Procedure?: Yes Field Administrator: Liana Irizarry Estimated blood loss (mL): 20 Tourniquet time (min): 100 IV fluids (mL): 1,200 Pathology: none sent Condition: stable Disposition: PACU
[2023-07-24 10:15] VITALS: BP 108/60; PULSE 90; RESP 16; TEMP 36.6; O2SAT 100
[2023-07-24 10:20] VITALS: BP 106/57; PULSE 87; RESP 16; O2SAT 100
[2023-07-24 10:25] VITALS: BP 113/64; PULSE 91; RESP 16; O2SAT 100
[2023-07-24 10:30] VITALS: BP 114/73; PULSE 86; RESP 18; O2SAT 100
[2023-07-24 10:45] VITALS: BP 113/71; PULSE 88; RESP 18; TEMP 36.2; O2SAT 98
--- NOTE | 2023-07-24 11:23 | HO.ANESPROP2 ---
HPI - Anesthesia Eval Consult details Narrative: for ACL PMFSH Active Problems Active Problems: All Active Problems (Updated 07/18/23 @ 10:23 by Clarissa Nguyen) ACL tear (Acute) Normal gynecologic examination (Acute) Hyperlipidemia (Acute) Rectal bleeding (Acute) Medial meniscus tear (Acute) History of colposcopy (Acute) HPV (human papilloma virus) infection (Acute) Annual physical exam (Acute) Sprain of left knee (Acute) Sprain of right knee (Acute) Family History Family History Mother Diabetes Father Prostate cancer Paternal Uncle Colon cancer Family history of problems with anesthesia: No Surgical History Surgical History No pertinent past surgical history History of Problems with Anesthesia: No Social History Social History Household Members Other:: execise 3 x a week Housing: House (with parents ) Alcohol intake: current Alcohol intake frequency: a few times a week Alcohol type: other Comment: twisted teas Patient Tobacco Use Status: Former Tobacco user e-Cigarette/Vaping Use: Never Used Use of substances other than those prescribed or required for medical reasons: Yes Are you DNR?: No Advance Directives: No Advance Directives Information Provided: Yes service: No Current occupational status: employed 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 [employer] Current occupational exposures/hazards: No Cognitive needs: No Hearing needs: No Vision needs: No Meds Allergies Allergy/AdvReac Type Severity Reaction Status Date / Time amoxicillin Allergy Mild Rash Verified 07/18/23 10:13 ivory soap Allergy Mild Rash Uncoded 05/28/23 14:35 Active Medications: Current Medications Lactated Ringer's (Lr) 1,000 mls @ 100 mls/hr IVCONT .Q10H ALYSIA Last Admin: 07/24/23 06:47 Dose: 100 mls/hr Exam Height,Weight and Vital Signs: Height 5 ft 1 in Weight 80.796 kg Last Vital Signs Temp 97.2 F 07/24/23 10:45 Pulse 88 07/24/23 10:45 Resp 18 07/24/23 10:45 BP 113/71 07/24/23 10:45 Pulse Ox 98 07/24/23 10:45 O2 Del Method Room Air 07/24/23 10:45 O2 Flow Rate 3 07/24/23 10:30 Pertinent Lab Results Pertinent Lab Results: Laboratory Tests 07/24/23 06:14 Urine Test NEGATIVE Airway Mallampati Class: II TM Dist: >3cm Neck ROM: Full Heart: rrr Lungs: cta Assessment and Plan Assessment Anesthesia Assessment: Anesthesia Plan Discussed (PMSH review done, unable to use tab to document ) and Chart Reviewed Final Anesthetic Review Family History of Problems with Anesthesia: No History of Problems with Anesthesia: No NPO: Yes ASA Class: II Final Preanesthetic Review: No Changes in Pt Med Stat, Meds/Allgs Chart Reviewed, Consent Obtained/Reviewed and Anes Risks/Benef Reviewed Patient Risk: Intermediate Procedure Risk: Intermediate Anesthetic Plan Anesthetic Plan: GA and Regional Block Disposition: Standard PACU
--- NOTE | 2023-08-08 11:24 | P.OP_ITS ---
Operative Note Operative Note Date of Service: 07/24/23 Narrative: Date of Service: 07/24/23 Pre-op diagnosis: left knee MMT/ACL partial tear Post-op diagnosis: other (1) ACL rupture 2) MMT 3) LMT) Procedure: 1) ACL reconstruction 2) Lateral menicus root repair 3) medial meniscal repair Implants: ACL femoral endobutton ( [employer]) Meniscal FastFix x 2 ( [employer]) Footprint knotless anchor ( [employer]) Surgeon: David Ross MD Anesthesia: GETA and regional Was an [employer] Mixer Operator used for this Procedure?: Yes [employer] Mixer Operator: Liana Irizarry Estimated blood loss (mL): 20 Tourniquet time (min): 100 IV fluids (mL): 1,200 Pathology: none sent Condition: stable Disposition: PACU Procedure in detail: Patient was brought to the operating room placed supine on the arthroscopic table and prepped and draped in standard sterile fashion. A time-out was called to identify proper site proper procedure proper surgeon and IV antibiotics per weight were administered. Under anesthesia she had a + pivot shift. I began by exsanguinating the limb and insufflating tourniquet to 300 mm Hg. Then made a standard anterolateral stab incision. The knee was insufflated with water and 30 degree arthroscope was placed. There was grade 1 fibrillations of the patella but overall suprapatellar pouch and the gutters were clean. I descended into the medial compartment where I made my far medial portal under direct visualization. There was an unstable medial meniscus tear in the red/white zone. The root was intact and there were sacattered grade 1 changes of the MFC. I used two Fast Pass meniscal cinches ([employer]) to repair the tear through the AM portal. I was satisfied with the extent of repair. I then examined the notch where there was a + empty wall sign and an intact PCL. The lateral meniscal root was torn at its insertion. I debrided the tissue and it was healthy and I then used a suture passer to pass two suture tapes through the free edge of the lateral meniscus. I then used a ringed currette to debride the root insertion site. I then drilled a spin through the anteromedial tibia through the footprint using the root repair guide set at 55deg. I passed a nitinol loop through this and retrieved the two limbs of suture tape attached to the meniscus. I then debrided the stump and acl footprint and performed a limited notchplasty. I then, through a far AM portal and a 7mm behind the back guide, drilled a k-wire through the LFC with the knee in hyper-flexion. I measured the tunnel as a 31 and then after sizing the allograft on the back table drilled a 25 mm tunnel with a 10 mm reamer. The final 6 mm was drilled iwth a 4.5 reamer. I then pulled a suture through the femoral tunnel and turned my attention to the tibia. I did examine the femoral tunnel and was satisfied with the posterior wall and its location low and medial at the anatomic footprint. I placed my tibial drill guide in 55 deg and, through a anteromedial inc just lateral to the tibial tubercle placed a k-wire into the notch exiting just medial to the anterior horn insertion of the lateral meniscus. I then over- reamed with a 10mm reamer. I cleaned the tunnels up with a shaver. The lateral root suture remained intact. On the back table I whip-stitched the allograft to fit through a 10 aperture and attached the femoral button to the looped end. I placed the graft on 15lbs of tension for 10 minutes. I then passed the allograft through the tibial tunnel and femoral tunnel and flipped the button. I cycled the knee about 10-15 cycles and then placed a tibial interference screw with the knee in hyper-extension while holding the graft taught. Once I was satisfied that the interference screw was buried I examined the ACL and the medial meniscus repair. The repair was stable and the ACL was not impinging and there was a negative pivot shift. I then brought the lateral meniscus to its insertion site while flexed at 30 deg. The suture was then dunked into a footprint anchor anterolateral to the tibial tubercle. The repair was anatomic and I was satisfied. I then removed all instrumentation and closed the incisions with nylon. Patient was then placed in sterile dressings and a hinged knee brace. She was then extubated brought recovery room stable condition. There were no known complications.
== END 2023-07-24 11:47 | disposition home or self-care (01) ==
PROVIDERS: Nurse Practitioner; PCP Internal Medicine; Visit Provider Orthopaedic Surgery
PROC: (CPT 27428; principal; 2023-07-24 07:30)
DX: S83.242A Other tear of medial meniscus, current injury, left knee, initial encounter (principal); S83.282A Other tear of lateral meniscus, current injury, left knee, initial encounter; S83.512A Sprain of anterior cruciate ligament of left knee, initial encounter; X58.XXXA Exposure to other specified factors, initial encounter; Y93.9 Activity, unspecified; Y92.9 Unspecified place or not applicable; Y99.8 Other external cause status; E78.5 Hyperlipidemia, unspecified; Z79.899 Other long term (current) drug therapy; Z88.1 Allergy status to other antibiotic agents; Z87.891 Personal history of nicotine dependence
CPT/HCPCS: 29888; 29889; 29883; 81025; C1713; C1762; J0131; J0171; J0665; J0736; J1100; J2250; J2704; J3010

== ENCOUNTER → 2023-07-24 05:59 | Outpatient (BNV) | payer OTHER, SELFPAY | PROVIDERS: PCP Internal Medicine; Visit Provider Orthopaedic Surgery | DX: S83.512A Sprain of anterior cruciate ligament of left knee, initial encounter (principal); S83.242A Other tear of medial meniscus, current injury, left knee, initial encounter; S83.282A Other tear of lateral meniscus, current injury, left knee, initial encounter | CPT/HCPCS: 29883; 29888 ==

== ENCOUNTER 2023-07-30 13:38 | Outpatient (AMB) | payer OTHER, SELFPAY ==
--- NOTE | 2023-07-30 13:41 | A.OFFVIS_ITS ---
Intake Visit Reasons: PO LT knee MMR, ACL 07/24/23 NE Intake Note: Bere is a 43 year old female who presents today for a post op appointment s/p LT knee MMR, ACL 07/24/23 NE. Patient reports having throbbing pain and having a burning sensation in her knee. Allergies amoxicillin Allergy (Mild, Verified 07/30/23 13:43) Rash ivory soap Allergy (Mild, Uncoded 05/28/23 14:35) Rash HPI HPI PO LT knee MMR, ACL 07/24/23 NE: Details: 43-year-old female who presents in the office today 6 days status post left knee ACL reconstruction, lateral meniscus root repair, and medial meniscal repair, which was performed on 07/24/[address] Ross. While in the office today the patient reports she is having a throbbing pain and burning sensation in her left knee. 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 [employer] Current occupational exposures/hazards: No Cognitive needs: No Hearing needs: No Vision needs: No Review of Systems Const All systems reviewed & are unremarkable except as noted in HPI and below Physical Exam Const General: cooperative, healthy appearing and no acute distress Resp Effort & Inspection: normal respiratory effort and able to speak in complete sentences Cardio Rate: regular rate Peripheral pulses: Peripheral pulses 2+ throughout GI Palpation (GI): Soft to palpation Skin Lesions: no lesions Rashes: no rashes Extrem Other: Left knee: Incision site is clean, dry, and intact. Sutures intact. No surrounding erythema or drainage. No signs of infection. Did not evaluate her ROM due to medial and lateral meniscus repairs. Calf is supple and nontender. Able to dorsiflex and plantarflex. NVI. Assessment & Plan Assessment & Plan (1) Medial meniscus tear: Code(s): S83.249A - Other tear of medial meniscus, current injury, unspecified knee, initial encounter Category: Medical Qualifiers: Encounter type: subsequent encounter Laterality: left Meniscus tear of knee type: unspecified type Tear current or old: unspecified Qualified Code(s): S83.242D - Other tear of medial meniscus, current injury, left knee, subsequent encounter (2) ACL tear: Code(s): S83.519A - Sprain of anterior cruciate ligament of unspecified knee, initial encounter Category: Medical Qualifiers: Encounter type: subsequent encounter Laterality: left Qualified Code(s): S83.512D - Sprain of anterior cruciate ligament of left knee, subsequent encounter Plan Ms. Larsen is a 43-year-old female who presents in the office today 6 days status post left knee ACL reconstruction, lateral meniscus root repair, and medial meniscal repair, which was performed on 07/24/[address] Ross. While in the office today the patient reports she is having a throbbing pain and burning sensation in her left knee. Sutures were removed and steri-stripes were applied. She has her first physical therapy session tomorrow, 07/31/2023. After this she will be placed back into the ALC brace. Follow up will be in [address] Ross, or sooner if needed. Patient Instructions: Scribed by Clarissa Nguyen medical director/head team physician, for Liana Irizarry PA-C on 07/30/2023 at 1:51 pm, EST. Coding Level of Care Code Global (24256) Diagnoses Tear of medial meniscus of left knee, unspecified tear type, unspecified whether old or current tear, subsequent encounter S83.242D Encounter type: subsequent encounter Laterality: left Meniscus tear of knee type: unspecified type Tear current or old: unspecified Rupture of anterior cruciate ligament of left knee, subsequent encounter S83.512D Encounter type: subsequent encounter Laterality: left
== END 2023-07-30 15:09 | disposition home or self-care (01) ==
PROVIDERS: PCP Internal Medicine; Visit Provider Physician Assistant
DX: S83.242D Other tear of medial meniscus, current injury, left knee, subsequent encounter (principal); S83.512D Sprain of anterior cruciate ligament of left knee, subsequent encounter
CPT/HCPCS: 99024

== ENCOUNTER → 2023-07-30 13:38 | Outpatient (BNVA) | payer OTHER, SELFPAY | PROVIDERS: PCP Internal Medicine; Visit Provider Physician Assistant ==

== ENCOUNTER 2023-08-26 12:07 | Outpatient (AMB) | payer OTHER, SELFPAY ==
--- NOTE | 2023-08-26 12:14 | A.OFFVIS_ITS ---
Vital Signs 08/26/23 12:16 Height 5 ft 1 in Weight 170 lb BMI 32.1 Intake Visit Reasons: PO LT knee MMR, ACL 07/24/23 NE Intake Note: Bere is a 43 year old female who presents today with her mother for a post op appointment s/p LT knee MMR, ACL 07/24/23 NE. Patient reports she is well and continues PT. Accompanied by: Mother Allergies amoxicillin Allergy (Mild, Verified 08/26/23 12:17) Rash ivory soap Allergy (Mild, Uncoded 05/28/23 14:35) Rash HPI HPI PO LT knee MMR, ACL 07/24/23 NE: Details: Bere is a 43 year old female who presents today with her mother for a post op appointment s/p LT knee MMR, ACL 07/24/23 NE. Patient reports she is well and continues PT. 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 (2) Medial meniscus tear: Code(s): S83.249A - Other tear of medial meniscus, current injury, unspecified knee, initial encounter Category: Medical Qualifiers: Tear current or old: unspecified Encounter type: subsequent encounter Meniscus tear of knee type: unspecified type Laterality: left Qualified Code(s): S83.242D - Other tear of medial meniscus, current injury, left knee, subsequent encounter Plan: s/p repair medial body (3) Lateral meniscal tear: Code(s): S83.289A - Other tear of lateral meniscus, current injury, unspecified knee, initial encounter Category: Medical Plan: s/p lateral root repair. Protocol for root repair should be the protocol that is followed. Coding Level of Care Code Global (57767) Diagnoses Rupture of anterior cruciate ligament of left knee, subsequent encounter S83.512D Encounter type: subsequent encounter Laterality: left Tear of medial meniscus of left knee, unspecified tear type, unspecified whether old or current tear, subsequent encounter S83.242D Tear current or old: unspecified Encounter type: subsequent encounter Meniscus tear of knee type: unspecified type Laterality: left Lateral meniscal tear S83.289A
[2023-08-26 12:16] VITALS: BMI 32.1
== END 2023-08-26 12:45 | disposition home or self-care (01) ==
PROVIDERS: PCP Internal Medicine; Visit Provider Orthopaedic Surgery
DX: S83.512D Sprain of anterior cruciate ligament of left knee, subsequent encounter (principal); S83.242D Other tear of medial meniscus, current injury, left knee, subsequent encounter; S83.289A Other tear of lateral meniscus, current injury, unspecified knee, initial encounter
CPT/HCPCS: 99024

== ENCOUNTER → 2023-08-26 12:07 | Outpatient (BNVA) | payer OTHER, SELFPAY | PROVIDERS: PCP Internal Medicine; Visit Provider Orthopaedic Surgery ==

== ENCOUNTER 2023-10-14 10:06 | Outpatient (AMB) | payer OTHER, SELFPAY ==
--- NOTE | 2023-10-14 10:14 | A.OFFVIS_ITS ---
Vital Signs 10/14/23 10:17 Height 5 ft 1 in Weight 170 lb BMI 32.1 Intake Visit Reasons: OV- LT knee MMR f/u, ACL 07/24/23 NE Intake Note: Bere is a 43 year old female who presents today with her mother for a post op appointment s/p LT knee MMR, ACL 07/24/23 NE. Patient reports that she is doing well, with no concerns. She continues to work with PT. She is currently out of work, RTW date set for Saturday10/17/23. She feels that she will be ready to return to work with hops of being in the office 2x a week and remotely the other days. Allergies amoxicillin Allergy (Mild, Verified 10/14/23 10:16) Rash ivory soap Allergy (Mild, Uncoded 10/14/23 10:16) Rash HPI HPI OV- LT knee MMR f/u, ACL 07/24/23 NE: Details: Bere is a 43 year old female who presents today with her mother for a post op appointment s/p LT knee MMR, ACL 07/24/23 NE. Patient reports that she is doing well, with no concerns. She continues to work with PT. She is currently out of work, RTW date set for Saturday10/17/23. She feels that she will be ready to return to work with hops of being in the office 2x a week and remotely the other days. 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 [employer] Current occupational exposures/hazards: No Cognitive needs: No Hearing needs: No Vision needs: No Physical Exam Vital Signs: BMI result Body Mass Index 32.1 Extrem Other: inc c/d/i 5-100 stable lachaman's no effusion Assessment & Plan Assessment & Plan (1) Medial meniscus tear: Code(s): S83.249A - Other tear of medial meniscus, current injury, unspecified knee, initial encounter Category: Medical Qualifiers: Tear current or old: unspecified Encounter type: subsequent encounter Meniscus tear of knee type: unspecified type Laterality: left Qualified Code(s): S83.242D - Other tear of medial meniscus, current injury, left knee, subsequent encounter Plan: PT ordered (2) ACL tear: Code(s): S83.519A - Sprain of anterior cruciate ligament of unspecified knee, initial encounter Category: Medical Qualifiers: Encounter type: subsequent encounter Laterality: left Qualified Code(s): S83.512D - Sprain of anterior cruciate ligament of left knee, subsequent encounter Plan: Cont PT. f/u 3 months July RTW 10/16 No restrictions. 3d/wk in office and should be allowed to ned elevator (3) Lateral meniscal tear: Code(s): S83.289A - Other tear of lateral meniscus, current injury, unspecified knee, initial encounter Category: Medical Plan: Cont PT Orders: Orders PT Evaluation and Treatment Today S83.242D - Other tear of medial meniscus, current injury, left knee, subsequent encounter, S83.289A - Other tear of lateral meniscus, current injury, unspecified knee, initial encounter, S83.512D - Sprain of anterior cruciate ligament of left knee, subsequent encounter Coding Level of Care Code Global (53163) Diagnoses Tear of medial meniscus of left knee, unspecified tear type, unspecified whether old or current tear, subsequent encounter S83.242D Tear current or old: unspecified Encounter type: subsequent encounter Meniscus tear of knee type: unspecified type Laterality: left Rupture of anterior cruciate ligament of left knee, subsequent encounter S83.512D Encounter type: subsequent encounter Laterality: left Lateral meniscal tear S83.289A
[2023-10-14 10:17] VITALS: BMI 32.1
== END 2023-10-14 12:36 | disposition home or self-care (01) ==
PROVIDERS: PCP Internal Medicine; Visit Provider Orthopaedic Surgery
DX: S83.242D Other tear of medial meniscus, current injury, left knee, subsequent encounter (principal); S83.512D Sprain of anterior cruciate ligament of left knee, subsequent encounter; S83.289A Other tear of lateral meniscus, current injury, unspecified knee, initial encounter
CPT/HCPCS: 99024

== ENCOUNTER → 2023-10-14 10:06 | Outpatient (BNVA) | payer OTHER, SELFPAY | PROVIDERS: PCP Internal Medicine; Visit Provider Orthopaedic Surgery ==

== ENCOUNTER 2024-01-13 09:32 | Outpatient (AMB) | payer OTHER, SELFPAY ==
--- NOTE | 2024-01-13 09:50 | MHC.OFFVIS ---
Intake Visit Reasons: OV- LT knee MMR f/u, ACL 07/24/23 NE Intake Note: Bere is a 43 year old female who presents today with her mother for a post op appointment s/p LT knee MMR, ACL 07/24/23 NE. Patient reports that she is doing well, she does however feel that her progress is very slow. She is working with PT once a week. She continues to have swelling of the left foot and a numbness on the lower leg to the touch. She is struggling to go down the stairs leading with the right leg as the left leg feels weak supporting her down the step. Allergies amoxicillin Allergy (Mild, Verified 01/13/24 09:52) Rash ivory soap Allergy (Mild, Uncoded 01/13/24 09:52) Rash HPI HPI OV- LT knee MMR f/u, ACL 07/24/23 NE: Details: Mere is 5 months status post ACL reconstruction with allograft and medial and lateral meniscus repair. She states she still does not trust her knee but her motion is improving. She is only doing physical therapy once a week now. 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 She has tenderness to palpation of the medial tibial plateau and flexion to 110 degrees with extension to -5. Stable Martin's Assessment & Plan Assessment & Plan (1) ACL tear: Code(s): S83.519A - Sprain of anterior cruciate ligament of unspecified knee, initial encounter Category: Medical Qualifiers: Encounter type: subsequent encounter Laterality: left Qualified Code(s): S83.512D - Sprain of anterior cruciate ligament of left knee, subsequent encounter Plan: This is a 43-year-old who is status post ACL with medial and lateral meniscal repairs. I recommend that she amp up her outpatient PT but that she avoid dynamic lateral movements and that we focus on strengthening and range of motion. I will see him back in 3 months. (2) Lateral meniscal tear: Code(s): S83.289A - Other tear of lateral meniscus, current injury, unspecified knee, initial encounter Category: Medical Plan: (3) Medial meniscus tear: Code(s): S83.249A - Other tear of medial meniscus, current injury, unspecified knee, initial encounter Category: Medical Qualifiers: Tear current or old: unspecified Encounter type: subsequent encounter Meniscus tear of knee type: unspecified type Laterality: left Qualified Code(s): S83.242D - Other tear of medial meniscus, current injury, left knee, subsequent encounter Plan: Coding Level of Care Code Est Pt Level 3 (93075) Diagnoses Rupture of anterior cruciate ligament of left knee, subsequent encounter S83.512D Encounter type: subsequent encounter Laterality: left Lateral meniscal tear S83.289A Tear of medial meniscus of left knee, unspecified tear type, unspecified whether old or current tear, subsequent encounter S83.242D Tear current or old: unspecified Encounter type: subsequent encounter Meniscus tear of knee type: unspecified type Laterality: left
== END 2024-01-13 10:00 | disposition home or self-care (01) ==
PROVIDERS: PCP Internal Medicine; Visit Provider Orthopaedic Surgery
DX: S83.512D Sprain of anterior cruciate ligament of left knee, subsequent encounter (principal); S83.289A Other tear of lateral meniscus, current injury, unspecified knee, initial encounter; S83.242D Other tear of medial meniscus, current injury, left knee, subsequent encounter
CPT/HCPCS: 99213

== ENCOUNTER → 2024-01-13 09:32 | Outpatient (BNVA) | payer OTHER, SELFPAY | PROVIDERS: PCP Internal Medicine; Visit Provider Orthopaedic Surgery ==

== ENCOUNTER 2024-01-17 11:00 | Outpatient (RCR) | payer OTHER, SELFPAY ==
--- NOTE | 2023-08-02 15:58 | MHC.PT.EP ---
[facility] [place] Office [place] Office [place] Office [address] Melanie Vernon [address] [facility] [phone] F: [phone] F: [phone] F: [phone] F: [phone] Physical Therapy Plan of Care Date of Evaluation: 07/31/23 Date of Surgery: 07/24/23 Diagnosis: Sprain of anterior cruciate ligament of left knee, subsequent encounter Other tear of medial meniscus, current injury, left knee, subsequent encounter ACL reconstruction with allograft and medial meniscus repair 07/24/[address] Ross Assessment: Pt is a pleasant and motivated 43yo F who presents to PT 1 week s/p left ACL reconstruction, Lateral meniscus root repair, and medial meniscal repair with Dr. Ross on 07/24/23. Pt presents to PT with expected impairments in pain, decreased L knee ROM, decreased LE strength, decreased balance/proprioception, and impaired gait. She is limited functionally by functional activities involving her LLE. She is an excellent candidate for skilled PT in order to address current impairments and to progress per protocol to facilitate return to PLOF. She is recommended to be seen 2x/week for 5 weeks and will be reassessed at that time Frequency and Duration: The patient will be seen 2x/week for 5 weeks Short Term Goals: Pt will be I with HEP to promote self management of symptoms Pt will achieve L knee extension 0 deg Pt will achieve PROM L knee flexion to 90 deg by 2 weeks post op per protocols Guest Experience Representative Goals: Pt will achieve full left knee ROM by 5 weeks post op per protocols Pt will achieve left knee strength 4+/5 to assist with functional tasks Pt will demonstrate improvements in function as evidenced by statistically significant improvement in LEFI outcome measure Treatment Plan: Modalities to reduce pain, spasms and effusion. Manual therapy to restore motion and function. Therapeutic exercise to improve strength and flexibility. Neuromuscular re-education for posture and balance. Therapeutic activities to return to functional activities of daily living. Electronically signed by: Risa Agrawal, PT, DPT Please sign and return to therapist. Thank you for your referral.
--- NOTE | 2024-01-20 08:31 | MHC.PT.DC ---
[facility] [place] Office [place] Office [place] Office [address] Melanie Vernon [address] [phone] F: [phone] F: [phone] F: [phone] F: [phone] Physical Therapy Discharge Report Diagnosis: Sprain of anterior cruciate ligament of left knee, subsequent encounter Other tear of medial meniscus, current injury, left knee, subsequent encounter ACL reconstruction with allograft and medial meniscus repair 07/24/[address] Ross Date of Surgery: 07/24/23 Date of Evaluation: 07/31/23 Date of Discharge: 01/20/24 Treatments to Date: 37 Cancellations to Date: No Shows to Date: Discharge Status: Improved Function Independent with HEP Discharge Summary: Pt was seen for skilled PT from 07/31/23-01/17/24. Her last attended appointment was 01/17/24. She has made good progress with skilled PT since SOC and has reached a functional plateau at this time. She improved her score on LEFI outcome measure from 18/80 on initial PT evaluation to 53/80 at D/C. She is independent with HEP. She is being D/C from skilled PT at this time. She is recommended to continue HEP consistently in order to continue to progress strength and endurance. From last PT note on 01/17/24 by REDD: Pt has met all STGs and is progressing well with LTGs. Has met plateau point at this time and would do best with some time with her HEP. Pt has had overall significant increase in function as expected. Agreeable to d/c. Electronically signed by: Risa Agrawal, PT, DPT Please sign and return to therapist. Thank you for your referral.
== END 2024-01-17 15:44 | disposition home or self-care (01) ==
LOC: HO.PT 11:00
PROVIDERS: PCP Internal Medicine; Visit Provider Physician Assistant
DX: S83.512D Sprain of anterior cruciate ligament of left knee, subsequent encounter (principal); S83.242D Other tear of medial meniscus, current injury, left knee, subsequent encounter; S83.289D Other tear of lateral meniscus, current injury, unspecified knee, subsequent encounter
CPT/HCPCS: 97014; 97110; 97112; 97116; 97140; 97162

== ENCOUNTER 2024-01-30 10:15 | Day surgery (SDC) | payer OTHER, SELFPAY ==
[2024-01-28 12:08] VITALS: BMI 31.6
[2024-01-30 11:14] VITALS: BMI 32.9
[2024-01-30 11:21] VITALS: BP 131/84; PULSE 97; RESP 16; TEMP 37.1; O2SAT 96
[2024-01-30 11:21] LABS: UPreg QC Valid YES; Urine Pregnancy NEGATIVE (NEGATIVE)
[2024-01-30] MEDS: Lactated Ringers 1,000 ML 100 ML IVCONT (11:30)
--- NOTE | 2024-01-30 11:40 | HO.ANESPROP2 ---
Documented by User: Suzan Rowland NP 01/29/24 08:46 HPI - Anesthesia Eval Consult details Narrative: 43yo F for Colonoscopy PMFSH Active Problems Active Problems: All Active Problems Lateral meniscal tear (Acute) ACL tear (Acute) Normal gynecologic examination (Acute) Hyperlipidemia (Acute) Rectal bleeding (Acute) Medial meniscus tear (Acute) History of colposcopy (Acute) HPV (human papilloma virus) infection (Acute) Annual physical exam (Acute) Sprain of left knee (Acute) Sprain of right knee (Acute) Family History Family History Mother Diabetes Father Prostate cancer Paternal Uncle Colon cancer Family history of problems with anesthesia: No Surgical History Surgical History (Updated 01/30/24 @ 11:09 by Sarahi Heredia RN) History of repair of ACL (07/20/23) History of Problems with Anesthesia: No Social History Social History Household Members Other:: execise 3 x a week Housing: House (with parents ) Alcohol intake: current Alcohol intake frequency: a few times a week Alcohol type: other Comment: twisted teas Patient Tobacco Use Status: Former Tobacco user e-Cigarette/Vaping Use: Never Used Substance Use Type Other:: GUMMIES Are you DNR?: No Advance Directives: No Advance Directives Information Provided: Yes Recently lost weight without trying: No Nutrition Risks: No Nutritional Risk service: No Current occupational status: employed 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 [employer] Current occupational exposures/hazards: No Cognitive needs: No Hearing needs: No Vision needs: No Meds Allergies Allergy/AdvReac Type Severity Reaction Status Date / Time amoxicillin Allergy Mild Rash Verified 01/13/24 09:52 ivory soap Allergy Mild Rash Uncoded 01/13/24 09:52 Home Medications ?Medication ?Instructions ?Recorded ?Confirmed ?Last Taken ?Type ibuprofen 600 mg tablet 600 mg PO Q8H PRN 08/26/23 Unknown History Exam Height,Weight and Vital Signs: Height 5 ft 1 in Weight 75.75 kg Assessment and Plan Assessment Anesthesia Assessment: Chart Reviewed Final Anesthetic Review Family History of Problems with Anesthesia: No History of Problems with Anesthesia: No Documented by User: Kaylee Nicolas DO 01/30/24 11:46 PMFSH Family History Family History Mother Diabetes Father Prostate cancer Paternal Uncle Colon cancer Family history of problems with anesthesia: No Surgical History Surgical History (Updated 01/30/24 @ 11:09 by Sarahi Heredia RN) History of repair of ACL (07/20/23) History of Problems with Anesthesia: No Social History Social History Household Members Other:: execise 3 x a week Housing: House (with parents ) Alcohol intake: current Alcohol intake frequency: a few times a week Alcohol type: other Comment: twisted teas Patient Tobacco Use Status: Former Tobacco user e-Cigarette/Vaping Use: Never Used Substance Use Type Other:: GUMMIES Are you DNR?: No Advance Directives: No Advance Directives Information Provided: Yes Recently lost weight without trying: No Nutrition Risks: No Nutritional Risk service: No Current occupational status: employed 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 [employer] Current occupational exposures/hazards: No Cognitive needs: No Hearing needs: No Vision needs: No Meds Allergies Allergy/AdvReac Type Severity Reaction Status Date / Time amoxicillin Allergy Mild Rash Verified 01/13/24 09:52 ivory soap Allergy Mild Rash Uncoded 01/13/24 09:52 Home Medications ?Medication ?Instructions ?Recorded ?Confirmed ?Last Taken ?Type ibuprofen 600 mg tablet 600 mg PO Q8H PRN 08/26/23 Unknown History Exam Exam Date and Time: 01/30/24 1140 Height,Weight and Vital Signs: Height 5 ft 1 in Weight 75.75 kg Vital Signs Temperature 98.8 F 01/30/24 11:21 Pulse Rate 97 01/30/24 11:21 Respiratory Rate 16 01/30/24 11:21 Blood Pressure 131/84 01/30/24 11:21 Pulse Oximetry 96 01/30/24 11:21 Oxygen Delivery Method Room Air 01/30/24 11:21 Temperature 98.8 F 01/30/24 11:21 Pulse Rate 97 01/30/24 11:21 Respiratory Rate 16 01/30/24 11:21 Blood Pressure 131/84 01/30/24 11:21 Pulse Oximetry 96 01/30/24 11:21 Oxygen Delivery Method Room Air 01/30/24 11:21 Airway Mallampati Class: I TM Dist: >3cm Neck ROM: Full Loose/Missing/Broken Teeth: No (patient denies any loose or broken teeth) Heart: S1S2 Lungs: CTAB Assessment and Plan Assessment Anesthesia Assessment: Anesthesia Plan Discussed and Chart Reviewed Final Anesthetic Review Family History of Problems with Anesthesia: No History of Problems with Anesthesia: No NPO: Yes ASA Class: II Final Preanesthetic Review: No Changes in Pt Med Stat, Meds/Allgs Chart Reviewed, Consent Obtained/Reviewed and Anes Risks/Benef Reviewed Patient Risk: Low Procedure Risk: Low Anesthetic Plan Anesthetic Plan: MAC: and Agree w/ Assess. and Plan Disposition: Standard PACU
--- NOTE | 2024-01-30 12:01 | MHC.SHP ---
Pre-Procedural Eval Section A - 24 Hr Update-Section A only Date of Service: 01/30/24 Section B - Complete if H&P > 30 days Chief Complaint: Hemorrhage of anus and rectum Details of Present Illness: No pertinent past surgical history Family History Mother Diabetes Father Prostate cancer Paternal Uncle Colon cancer Allergies: Allergies Allergy/AdvReac Type Severity Reaction Status Date / Time amoxicillin Allergy Mild Rash Verified 01/13/24 09:52 ivory soap Allergy Mild Rash Uncoded 01/13/24 09:52 Review of Systems Review of Systems Comment: Ten point ROS negative Exam Exam Comment: Gen appear: No acute distress HEENT: no icterus Chest: No overt resp distress Abd: soft, nontender, nondistended Psych: Stable affect, answering questions appropriately Neuro: A/Ox3 noted to move all extremities spontaneously Ext: no peripheral edema Plan I have reviewed the history and physical and performed a pertinent physical examination on my patient. No changes have occurred unless specified. Time Spent With Patient Time: Total time managing care of this patient today ____ minutes.
--- NOTE | 2024-01-30 12:30 | P.OPN-COLO_ITS ---
Colonoscopy Operative Note Operative Note Date of Service: 01/30/24 Narrative: Procedure: Colonoscopy Indication: Rectal bleeding Endoscopist: Magda Staley MD Anesthesia Provider: Mitzi Grace CRNA Anesthesia type: MAC Instrument: Olympus [id number]-[id number] Consent: Indication, risks vs benefits, and alternatives were discussed with the patient who gave written informed consent to proceed. EKG, pulse, pulse oximetry and blood pressure were monitored throughout the procedure. Please see anesthesia flowsheet. Procedure: The patient was brought to the procedure room and placed in the left lateral decubitus position. IV medications were administered by the anesthesia provider in attendance. A digital rectal exam was performed which was normal. A distal attachment cap was affixed to the tip of the colonoscope which was then inserted through the anus and advanced through the colon to the cecum at 75 cm,and terminal ileum. Appendiceal orifice and ileocecal valve were identified. Mucosa was carefully examined under high definition white light as the instrument was slowly withdrawn in a retrograde panoramic fashion. Retroflexion was performed in rectum. The procedure was not difficult. There were no immediate obvious complications. The quality of the prep was BBPS: 2+3+3 = adequate Withdrawal time 10 minutes. Limitations: No limitations. Findings: Mucosa: Normal to cecum and terminal ileum. Protruding lesions: * Medium internal hemorrhoids without stigmata of recent bleeding. Impression: 1. Normal colon and terminal ileum mucosa 2. Internal hemorrhoids Recommendations: - intermittent rectal bleeding is likely from the hemorrhoids. - Repeat colo for asymptomatic colorectal cancer screening in 7 years
[2024-01-30 13:10] VITALS: BP 98/63; PULSE 88; RESP 16; TEMP 36.1; O2SAT 97
[2024-01-30 13:25] VITALS: BP 103/53; PULSE 78; RESP 16; TEMP 37; O2SAT 98
== END 2024-01-30 13:39 | disposition home or self-care (01) ==
PROVIDERS: Nurse Practitioner; PCP Internal Medicine; Visit Provider Internal Medicine
PROC: 0DJD8ZZ Inspection of Lower Intestinal Tract, Via Natural or Artificial Opening Endoscopic (ICD-10-PCS; CPT 45378; principal; 2024-01-30 12:10)
DX: K62.5 Hemorrhage of anus and rectum (principal); K64.8 Other hemorrhoids; Z88.1 Allergy status to other antibiotic agents
CPT/HCPCS: 45378; 81025; J2003; J2704

== ENCOUNTER → 2024-01-30 10:15 | Outpatient (BNV) | payer OTHER, SELFPAY | PROVIDERS: PCP Internal Medicine; Visit Provider Internal Medicine | DX: K62.5 Hemorrhage of anus and rectum (principal); K64.8 Other hemorrhoids | CPT/HCPCS: 45378 ==

== ENCOUNTER 2024-03-26 08:19 | Outpatient (AMB) | payer OTHER, SELFPAY ==
--- NOTE | 2024-03-26 08:12 | MHC.PC.OV ---
Vital Signs 03/26/24 08:13 Height 5 ft 1 in Weight 172 lb BMI 32.5 BP 106/76 Blood Pressure Location Lt brachial Position Sitting Pulse 93 Pulse Source Pulse Oximeter Pulse Oximetry (%) 97 Oxygen Delivery Method Room Air Intake Visit Reasons: Annual PE Intake Note: Pt is here today for PE. Pt states that she has been having sinus pain and pressure nasal congestion. Allergies amoxicillin Allergy (Mild, Verified 03/26/24 08:13) Rash ivory soap Allergy (Mild, Uncoded 03/26/24 08:13) Rash Medication List - Last Reconciled 03/26/24 by Teri Rodrigues MD azithromycin For 250 mg dose pack: take 500 mg today (day 1), then 250 mg for 4 days (days 2-5) PO Tobacco use date assessed: 03/26/24 Dental Screening Dental Screen Date: 03/26/24 Did you have a dental visit in the last 12 months?: Yes Did you have a dental problem in the last 6 months where you did not have access to dental care?: No Was dental information given to patient?: Patient has dentist HPI Annual PE HPI Details Pt presents for PE. Pt c/o sinus STRANGE, postnasal drip, green discharge, congestion and productive cough for 2 weeks. Patient is recovering from left knee ACL tear surgery. 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 1. Little interest or pleasure in doing things: not at all 2. Feeling down, depressed, or hopeless: not at all 3. Trouble falling or staying asleep, or sleeping too much: not at all 4. Feeling tired or having little energy: not at all 5. Poor appetite or overeating: not at all 6. Feeling bad about yourself - or that you are a failure or have let yourself or your family down: not at all 7. Trouble concentrating on things, such as reading the newspaper or watching television: not at all 8. Moving or speaking so slowly that other people could have noticed. Or the opposite - being so fidgety or restless that you have been moving around a lot more than usual: not at all 9. Thoughts that you would be better off or of hurting yourself in some way: not at all Total score: 0 Depression Screening Interpretation: Negative Depression Screening Done: Yes 89067 - PHQ-9 Billing: Yes Source: Developed by Drs. Jeff Pemberton, Jenn Chance, Mario Alberto Greene and colleagues, with an educational abundio from [employer]. Thrive Questionnaire Date Thrive assessed: 03/26/24 I am a: Patient What is your living situation today?: I have a steady place to live Within the past 12 months, did the food you bought not last and you didn't have the money to get more?: I choose not to answer this question Within the past 12 months, did you worry whether your food would run out before you got money to buy more?: I choose not to answer this question Do you have trouble paying for medicines?: I choose not to answer this question Do you have trouble getting transportation to medical appointments?: No Do you have trouble paying your heating and electricity bill?: I choose not to answer this question Do you have trouble taking care of your child, family member or friend?: No Do you have trouble with day-to-day activities such as bathing, preparing meals, shopping, managing finances, etc.?: I choose not to answer this question Are you currently unemployed and looking for a job?: No Are you interested in more education?: Yes Please select the resources that you would like help with: None Currently or been in a relationship where the following occur: I choose not to answer THRIVE Score: 0 AUDIT C Alcohol Use Questionnaire (AUDIT-C) 1. How often do you have a drink containing alcohol?: 2-3 times a week 2. How many drinks containing alcohol do you have on a typical day when you are drinking?: 3 or 4 3. How often do you have six or more drinks on one occasion?: Never Total Score: 4 RENEE-7 AMB Questionnaire RENEE-7 Date RENEE - 7 assessed: 03/26/24 Feeling nervous, anxious, or on edge: 0 = Not at all Not being able to stop or control worryin = Not at all Worrying too much about different things: 3 = Nearly every day Trouble relaxin = Several days Being so restless that it is hard to sit still: 1 = Several days Becoming easily annoyed or irritable: 1 = Several days Feeling afraid as if something awful might happen: 0 = Not at all Total RENEE-7 score (0-4 normal; 5-9 mild; 10-14 moderate; 15-21 severe): 6 Source: Developed by Drs. Jeff Pemberton, Jenn Chance, Mario Alberto Greene and colleagues, with an educational abundio from [employer]. RENEE-7 Assessment Billing RENEE-7 Assessment Tool: RENEE-7 Assessment 88920 Review of Systems Const All systems reviewed & are unremarkable except as noted in HPI and below Eyes Reports no additional complaints ENT Reports no additional complaints Card Reports no additional complaints Resp Reports no additional complaints GI Reports no additional complaints Reports no additional complaints Physical exam (Primary Care) Vital Signs: Last Vital Signs Pulse 93 03/26/24 08:13 BP 106/76 03/26/24 08:13 Pulse Ox 97 03/26/24 08:13 Oxygen Delivery Method Room Air 03/26/24 08:13 BMI result Body Mass Index 32.5 Tobacco/Smoking Status: Tobacco use Status Tobacco use date assessed 03/26/24 03/26/24 08:17 Patient Tobacco Use Status Former Tobacco user 03/26/24 08:17 e-Cigarette/Vaping Use Never Used 03/26/24 08:17 PHQ-9: PHQ-9 Score PHQ-9: Total score 0 03/26/24 08:22 Depression Screening Interpretation: Negative Thrive Assessment: Date of Thrive Assessment Date Thrive assessed 03/26/24 03/26/24 08:17 Currently or been in a relationship where the following occur: I choose not to answer Const General: no acute distress HENMT Head: Yes normal to inspection Ears: TM's normal bilaterally Face and sinus: Yes normal facial exam Throat: Yes postnasal drainage Eyes General: appearance normal, both eyes and all related structures Neck Neck: Yes no lymphadenopathy and Yes supple Resp Effort & Inspection: normal respiratory effort Auscultation: clear to auscultation bilaterally Cardio Rhythm: regular rhythm Heart sounds: S1 normal heart sound present and S2 normal heart sound present GI Inspection: Yes normal to inspection Palpation (GI): Soft to palpation Percussion: Yes normal to percussion Auscultation: normal bowel sounds Speculum Exam - Vagina: normal appearance of the vagina Speculum Exam - Cervix: normal appearance of the cervix Bimanual exam- vagina & uterus: normal bimanual exam Bimanual Exam- Adnexa, other: normal adnexae Coding Level of Care Code Est Pt Prev Care 40-64y(92805) Diagnoses Annual physical exam Z00.00 Hyperlipidemia E78.5 Additional Codes RENEE-7 Assessment Billing - RENEE-7 Assessment Tool: RENEE-7 Assessment 97965 ([id number]) PHQ-9 - 36593 - PHQ-9 Billing: Yes ([id number]) Assessment & Plan Assessment & Plan (1) Annual physical exam: Code(s): Z00.00 - Encounter for general adult medical examination without abnormal findings Category: Medical Plan: Well-balanced diet regular physical activity discussed with the patient she is up-to-date with the mammogram Pap smear was done today. (2) Hyperlipidemia: Code(s): E78.5 - Hyperlipidemia, unspecified Category: Medical Plan: Low-cholesterol diet regular physical activity discussed with the patient Orders: Orders Comprehensive [place]. Panel Fast Today E78.5 - Hyperlipidemia, unspecified, Z00.00 - Encounter for general adult medical examination without abnormal findings Complete Blood Count Auto Diff Today E78.5 - Hyperlipidemia, unspecified, Z00.00 - Encounter for general adult medical examination without abnormal findings Pap Smear Today B97.7 - Papillomavirus as the cause of diseases classified elsewhere, Z00.00 - Encounter for general adult medical examination without abnormal findings Lipid Panel Today E78.5 - Hyperlipidemia, unspecified, Z00.00 - Encounter for general adult medical examination without abnormal findings TSH reflex Free T4 Today E78.5 - Hyperlipidemia, unspecified, Z00.00 - Encounter for general adult medical examination without abnormal findings UA w Microscopic Today E78.5 - Hyperlipidemia, unspecified, Z00.00 - Encounter for general adult medical examination without abnormal findings Vitamin D 25-OH Total Today Z00.00 - Encounter for general adult medical examination without abnormal findings Medications: New azithromycin For 250 mg dose pack: take 500 mg today (day 1), then 250 mg for 4 days (days 2-5) PO 6 tabs 0RF
[2024-03-26 08:13] VITALS: BP 106/76; PULSE 93; O2SAT 97; BMI 32.5
--- OUTSIDE RECORDS SUMMARY | 2024-03-26 08:25 | XMS_ITS | Data Portability ---
Author Organization [facility] , [address] Address [address] [place] [address] Assessment No assessment recorded. Plan of Treatment Reminders Order Date Submit Date Provider Last Modified By Organization Details Last Modified Time Details Appointments None recorded. Lab None recorded. Referral None recorded. Procedures None recorded. Surgeries None recorded. Imaging None recorded. Medication Orders ciprofloxac in 0.3 % eye drops 2022 023 [facility] #[id number], [address] [place], [address], 3 19:23:33 clindamycin HCl 300 mg capsule 2022 023 [facility] #[id number], [address] [place], [address], 3 19:23:33 Patient TargetsNo targets recorded. Patient Instructions Encounter Date Encounter Id Patient Instructions Last Modified By Organization Details Last Modified Time 09/14/2022 [id number] earache: care instructions [email or web address] Not available 09/14/2022 19:23:31 ear infection (otitis media): care instructions [email or web address] Not available 09/14/2022 19:23:31 Reason for Referral None Reported. Problems Name Problem SNOMED Code Status Onset Date Resolution Date Notes Provider Name and Address Organization Details Recorded Time Eczema 42268853 Active 09/15/19 SYMONE Richards [facility] 09/14/2022 18:49:27 Problem Notes None recorded. Procedures Surgical History Date Name Laterality Status Provider Name and Address Organization Details Recorded Time Cerumen Removal by Irrigation completed SYMONE HEBERT [address] [place], [address], [place] - [facility] 09/14/2022 19:26:58 Imaging Results None recorded. Procedure Notes None recorded. Medical Equipment None Reported. Allergies Allergen ID Allergen Name Allergen Category Reaction Reaction Severity Criticality Documentation Date Start Date Code Code System Note Provider Name and Address Organization Details Recorded Time 218003 amoxicill in medicatio n Not available Not available Not available 09/14/2022 723 [facility]Norm SYMONE Richards [facility] 18:48:07 Medications Name Sig Start Date Stop Date Status Note LastModified by Organization Details LastModified Time clindamycin HCl 300 mg capsule Take 1 capsule 3 times a day by oral route for 7 days. 2022 active Not Available Not Available Not Avai lable ciprofloxacin 0.3 % eye drops 3 drop in the left ear 2x daily for 5 days. 2022 active Not Available Not Available Not Avai lable hydroxyzine HCl active Not Available N ot Available Not Available triamcinolone 0.1 % ointment-gauze 4 X 4 -silicone adhesive top kit active Not Available Not Available Not Available Vitals Date Recorded Body height Body mass index (BMI) Body weight Oxygen saturation Oxygen saturation in Arterial blood by Pulse oximetry Heart rate Respiratory rate Body temperature Systolic blood pressure Diastolic blood pressure Provider Name and Address Organization Details Last Updated DateTime 154.94 cm 30.8 kg/m2 35061.5 6 g 97 % 97 % 78 /min 18 /min 97.9 [degF] 120 mm[Hg] 84 mm[Hg] MIRIAN ASHBY [facility] 18:52:33 Social History Question Answer Notes LastModified by Organizat ion Details LastModified Time Tobacco Smoking Status Never Smoker SYMONE Richards [facility] 09/14/2022 18:50:32 What Is Your Level Of Alcohol Consumption? Occasional Information not available 09/14/2022 Which Illicit Or Recreational Drugs Have You Used? Marijuana Information not available 09/14/2022 Have You Had Direct Contact, Or Contact During Intimacy, With Monkeypox Rash, Scabs, Or Body Fluids From A Person With Monkeypox? No Information not available 09/14/2022 Do You Use Any Illicit Or Recreational Drugs? Yes Information not available 09/14/2022 Have You Recently Traveled Abroad? No Information not available 09/14/2022 Do You Or Have You Ever Used Any Other Forms Of Tobacco Or Nicotine? No Information not available 09/14/2022 Sex: Unknown Functional Status None recorded. Mental Status None recorded. Family History Relationship Description Onset Age of this Age Resolved Age Notes LastModified by Organization Details LastModified Time Father No current problems or disability Not available 08/18 18:49:31 Mother No current problems or disability Not available 08/18 18:49:31 Medical History No medical history recorded. Gynecological HistoryNo gynecological history recorded. Obstetrics History GPAL:G 0 P 0 0 0 0 Past Encounters Encounter ID Performer Location Encounter Start Date Encounter Closed Date Diagnosis/Indication Diagnosis SNOMED-CT Code Diagnosis ICD10 Code Diagnosis Note [id number] SYMONE HEBERT [address] [address] 09/14/2022 18:31:59 09/14/2022 19:27:14 Impacted cerumen in left ear [id number] 453909 H61.22 Removed wax - small abrasion in the ear canal at the 4 oclock position. Abrasion o f skin of left ear 1437602730 4719264 S00.412A ? If wax when dislocated tore the skin.Does not appear to have any TM in the membrane. There is still a small piece of wax remaining but we are not going to remove it because of the bleeding. Patient knows to come in an have ear checked again if any concerns. She states no pain. She states she actually can hear so much better and no pain. Acute left otitis media 051763582 H66.92 You have been diagnosed with a Ear Infection Today. Suggestion s to help with your discomfort and recovery include:1. Laying the effected ear on a heating pad or applying a warm rice bag or something warm.2. Motrin and Tylenol Regularly - this will help with pain and inflammati on of the Eustachian Tube - this is very important for a speedy recovery.3 . Antihistam ine like Claritin/Z yrtec/Lonnie gra/Benedr yl - will help with congestion and swelling in the Eustachian Tube.4. Saline Nasal Spray5. Salt Water Gargle6. Staying Hydrated If you develop any of the following Symptoms I would be seen again:1. Fever > 101.02. Stiff Neck3. Swelling of the Lymph Nodes around the ear or neck4. Worsening Pain5. Bleeding from the Ear6. Severe Sore Throat Go Immediatel y to the ER if you develop1. Severe Headache2. Chest Pain3. Shortness of Breath. Antibiotic s typically take 4-5 days to start working so do the above to help with your symptoms. Probiotics are important while taking antibiotic s - I recommend Florastor Make sure you finish the full course of the antibiotic s - if you don't this can lead to antibiotic resistance . Thank you for using [facility] today - and don't hesitate to contact our office if you have any concerns or questions. Health Concerns Section Related Observation LastModified by Organization Detai ls LastModified Time None Recorded Concern Status LastModified by Organization Details LastModified Time None Recorded Advance Directives Directive None Recorded Payers Encounter Date Sequence Insurance Name Policy Number Policy Galicia Covered Member ID Galicia Member ID Guarantor Name 09/14/2022 1 [facility] [id number] Bere Larsen [id number] Bere Suzie Notes Date Note Type Note Provider Name and Address Organization Details Recorded Time 3 text/html Ear problem UCReported bypatient.source of patient informationInformation obtained from patient; Patient arrived at Urgent Care ambulatory Location:bilateral Quality:clogged Severity:severe Duration:4 weeks Modifying Factors:does not hurt to lie on, or pull on earNotes:The patient states ear sounds clog. Irritation running down the side of the ear when she pushes on it. Last night thought throat felt wierd. Not described as a pain. No dizziness or headache. SYMONE HEBERT [address] [place], [address], [place] - [facility] 09/14/2022 19:41:44 OBGyn Episode No OBEpisode recorded.
== END 2024-03-26 08:59 | disposition home or self-care (01) ==
LOC: HO.HMCC 08:19
PROVIDERS: PCP Internal Medicine; Visit Provider Internal Medicine
DX: Z00.00 Encounter for general adult medical examination without abnormal findings (principal); E78.5 Hyperlipidemia, unspecified

== ENCOUNTER 2024-03-26 08:19 | Outpatient (REF) | payer OTHER, SELFPAY ==
[2024-03-26 10:13] LABS: MANUAL DIFF FLAG NO
[2024-03-26 10:23] LABS: Basophils Absolute Auto 0.1 X10*3/uL (0.0-0.2); Basophils Percent Auto 0.6 % (0-2); Eosinophils Absolute Auto 0.4 X10*3/uL (0.0-0.4); Eosinophils Percent Auto 4.1 % (0-4); Hematocrit 46.2 % (37.0-47.0); Hemoglobin 15.2 g/dl (12.0-16.0); Imm Gran Abs Auto 0.04 X10*3/uL (0.00-0.03); Imm Gran Pct Auto 0.5 % (0.0-0.4); Lymphocytes Absolute Auto 1.8 X10*3/uL (1.2-4.9); Lymphocytes Percent Auto 21.3 % (20-40); Mean Corpuscular HGB Conc 32.9 g/dl (31.0-35.0); Mean Corpuscular Hemoglobin 30.6 pg (27.0-33.0); Mean Corpuscular Volume 93.1 fL (80.0-98.0); Monocytes Absolute Auto 0.8 X10*3/uL (0.1-1.2); Monocytes Percent Auto 9.1 % (2-11); Neutrophils Absolute Auto 5.4 x10*3/uL (2.0-8.3); Neutrophils Percent Auto 64.4 % (45-73); Platelet Count 379 X10*3/uL (160-400); Red Blood Count 4.96 X10*6/uL (4.20-5.50); Red Cell Distribution Width 13.6 % (11.0-16.0); White Blood Count 8.5 X10*3/uL (4.8-10.8)
[2024-03-26 10:59] LABS: Appearance Urine Clear; Color Urine Yellow; Glucose Urine UA Negative (Negative); Leukocyte Esterase Urine Negative (Negative); Nitrite Urine Negative (Negative); PH 6.5 (5.0-9.0); Specific Gravity - Urine 1.025 (1.005-1.025); Urine Blood Negative (Negative); Urine Ketones Negative (Negative); Urine Protein Negative (Neg-Trace)
[2024-03-26 11:20] LABS: Alanine Aminotransferase 43 U/L (0-31); Albumin Level 4.3 g/dL (3.5-5.0); Anion Gap 11 (12-20); Aspartate Amino Transferase 28 U/L (5-31); Bilirubin Total 0.5 mg/dL (0.0-1.0); Blood Urea Nitrogen 11 mg/dL (9-16); Calcium 9.4 mg/dL (8.4-10.2); Carbon Dioxide 29 mmol/L (22-29); Chloride 105 mmol/L (96-108); Cholesterol 235 mg/dL (<200); Estimated Glomerular Filt Rate > 60; Glucose Fasting 95 mg/dL (60-99); HDL Cholesterol 59 mg/dL (>40); LDL Cholesterol Calculated 151 mg/dL (<100); Potassium 4.4 mmol/L (3.3-5.1); Sodium 141 mmol/L (135-145); Total Protein 7.7 g/dL (6.5-8.0); Triglycerides 127 mg/dL (<150)
[2024-03-26 11:33] LABS: TSH reflex Free T4 0.94 uIU/mL (0.32-4.0); Vitamin D 25-OH Total 21.7 ng/mL (>30)
[2024-03-26 11:39] LABS: Bacteria Urine 1+ (None Seen); Hyaline Casts Urine 0-2 /LPF (0-2); RBC Urine 0-2 /HPF (0-2); WBC Urine 0-5 /HPF (0-5)
[2024-03-26 12:27] LABS: Alkaline Phosphatase 66 U/L (39-117)
[2024-03-27 09:29] LABS: HPV 16,18/45 See PAP report
== END 2024-03-26 08:20 | disposition home or self-care (01) ==
LOC: HO.HMGCLDS 08:19
PROVIDERS: PCP Internal Medicine; Visit Provider Internal Medicine
DX: Z00.00 Encounter for general adult medical examination without abnormal findings (principal); E78.5 Hyperlipidemia, unspecified; B97.7 Papillomavirus as the cause of diseases classified elsewhere
CPT/HCPCS: 36415; 80053; 80061; 81001; 82306; 84443; 85025; 87626; 96127; 99459

== ENCOUNTER 2024-03-26 09:05 | Outpatient (REF) | payer OTHER, SELFPAY | END 2024-03-26 09:06 | disposition home or self-care (01) | LOC: HO.LNP 09:05 | PROVIDERS: Visit Provider Internal Medicine | DX: Z00.00 Encounter for general adult medical examination without abnormal findings (principal); B97.7 Papillomavirus as the cause of diseases classified elsewhere | CPT/HCPCS: 88175 ==

== ENCOUNTER 2024-04-24 07:19 | Outpatient (REF) | payer OTHER, SELFPAY | END 2024-04-24 07:20 | disposition home or self-care (01) | LOC: HO.MAMMO 07:19 | PROVIDERS: PCP Internal Medicine; Visit Provider Internal Medicine | DX: Z12.31 Encounter for screening mammogram for malignant neoplasm of breast (principal) ==

== ENCOUNTER → 2024-04-24 07:30 | Outpatient (BNV) | payer OTHER, SELFPAY | PROVIDERS: PCP Internal Medicine; Visit Provider Internal Medicine | DX: Z12.31 Encounter for screening mammogram for malignant neoplasm of breast (principal) | CPT/HCPCS: 77063; 77067 ==

== ENCOUNTER 2024-07-10 11:00 | Outpatient (RCR) | payer OTHER, SELFPAY ==
--- NOTE | 2024-05-21 14:26 | MHC.PT.EP ---
[facility] [place] Office [place] [facility] [place] Office [address] Melanie Vernon 140 [facility] [phone] F: [phone] F: [phone] F: [phone] F: [phone] Physical Therapy Plan of Care Date of Evaluation: 05/21/24 Date of Surgery: 07/24/23 Diagnosis: Sprain of anterior cruciate of left knee, subsequent encounter Other tear of lateral meniscus, current injury, unspecified knee Other tear of medial meniscus, current injury, left knee ACL tear *Lateral meniscal tear *Medial meniscus tear. dynamic rehab per ACL protocol Assessment: Patient is a 44 yo F who is 8 months post op L knee ACL reconstruction and medical meniscus root repair with Dr. Ross on 07/24/23. 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 Patient ambulates without AD, although has increased difficulty with stairs, squats, and dynamic functional mobility. Patient has decreased knee/hip strength, decreased knee ROM, hypomobility of L patella, and impaired body mechanics. Patient is an excellent candidate for physical therapy due to age, motivation, and high PLOF. Patient will benefit from physical therapy to be 2x a week for 4 weeks to improve strength, range, high level stability and dynamic mobility. 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 Manual therapy to restore motion and function. Therapeutic exercise to improve strength and flexibility. Neuromuscular re-education for posture and balance. Therapeutic activities to return to functional activities of daily living. Electronically signed by: Risa Agrawal, PT, DPT Please sign and return to therapist. Thank you for your referral.
--- NOTE | 2024-08-06 11:34 | MHC.PT.DC ---
[facility] [place] Office [place] Office [place] Office [address] Melanie Vernon 140 [facility] [phone] F: [phone] F: [phone] F: [phone] F: [phone] Physical Therapy Discharge Report Diagnosis: Sprain of anterior cruciate of left knee, subsequent encounter Other tear of lateral meniscus, current injury, unspecified knee Other tear of medial meniscus, current injury, left knee ACL tear *Lateral meniscal tear *Medial meniscus tear. dynamic rehab per ACL protocol Date of Surgery: 07/24/23 Date of Evaluation: 05/21/24 Date of Discharge: 08/06/24 Treatments to Date: 11 Cancellations to Date: 0 No Shows to Date: 0 Discharge Status: Achieved Goals Improved Function Independent with [facility] Discharge Summary: Pt was seen for skilled PT from 05/21/24-07/10/24. Her last attended appointment was 07/10/24. She met her STGs and LTGs. She scored a 76/80 on LEFI at last attended session. She was D/C to [facility] at last attended session Electronically signed by: Risa Agrawal, PT, DPT Please sign and return to therapist. Thank you for your referral.
== END 2024-08-06 11:32 | disposition home or self-care (01) ==
LOC: HO.PT 11:00
PROVIDERS: PCP Internal Medicine; Visit Provider Orthopaedic Surgery
DX: S83.512D Sprain of anterior cruciate ligament of left knee, subsequent encounter (principal); S83.282D Other tear of lateral meniscus, current injury, left knee, subsequent encounter; S83.242D Other tear of medial meniscus, current injury, left knee, subsequent encounter
CPT/HCPCS: 97110; 97112; 97140; 97161; 97530

== ENCOUNTER 2024-07-16 08:27 | Outpatient (REF) | payer OTHER, SELFPAY ==
--- NOTE | ~2024-07-16 | XR_ITS ---
EXAMINATION: XR KNEE, LEFT CLINICAL INFORMATION: Z98.890 - Other specified postprocedural states COMPARISON: Left Knee 01/07/2023. TECHNIQUE: Four views of the left knee. FINDINGS: The tricompartment joint space is maintained. There is evidence of previous ACL repair. Small joint effusion seen in the suprapatellar bursa. No loose bodies noted. No acute fracture, dislocation, lytic or sclerotic process. XR/XR knee LT 2V IMPRESSION: Small suprapatellar joint effusion. Evidence previous ACL repair, new since the last exam 01/07/2023. No acute fracture or dislocation Electronically signed by: Travis Conner MD 07/17/2024 09:34 AM EDT
--- OUTSIDE RECORDS SUMMARY | 2024-07-16 08:44 | XMS_ITS | Data Portability ---
Author Organization [facility] , [address] Address [address] [place] [address] Assessment No assessment recorded. Plan of Treatment Reminders Order Date Submit Date Provider Last Modified By Organization Details Last Modified Time Details Appointments None recorded. Lab None recorded. Referral None recorded. Procedures None recorded. Surgeries None recorded. Imaging None recorded. Medication Orders ciprofloxac in 0.3 % eye drops 2022 023 [facility]/Pharmacy #[id number], [address] [place], [address], 3 19:23:33 clindamycin HCl 300 mg capsule 2022 023 [facility]/Pharmacy #[id number], [address] [place], [address], 3 19:23:33 Patient TargetsNo targets recorded. Patient Instructions Encounter Date Encounter Id Patient Instructions Last Modified By Organization Details Last Modified Time 09/14/2022 [id number] earache: care instructions [email or web address] Not available 09/14/2022 19:23:31 ear infection (otitis media): care instructions [email or web address] Not available 09/14/2022 19:23:31 Reason for Referral None Reported. Problems Name Problem SNOMED Code Status Onset Date Resolution Date Notes Provider Name and Address Organization Details Recorded Time Eczema 49879989 Active 09/15/19 SYMONE Richards [facility] 09/14/2022 18:49:27 Problem Notes None recorded. Procedures Surgical History Date Name Laterality Status Provider Name and Address Organization Details Recorded Time Cerumen Removal by Irrigation completed SYMONE HEBERT [address] [place], [address], [place] - [facility] 09/14/2022 19:26:58 Imaging Results None recorded. Procedure Notes None recorded. Medical Equipment None Reported. Allergies Allergen ID Allergen Name Allergen Category Reaction Reaction Severity Criticality Documentation Date Start Date Code Code System Note Provider Name and Address Organization Details Recorded Time 019545 amoxicill in medicatio n Not available Not [...] Last Updated DateTime 154.94 cm 30.8 kg/m2 59691.5 6 g 97 % 97 % 78 /min 18 /min 97.9 [degF] 120 mm[Hg] 84 mm[Hg] MIRIAN ASHBY [facility] [facility] 18:52:33 Social History Question Answer [...] SNOMED-CT Code Diagnosis ICD10 Code Diagnosis Note [id number] SYMONE HEBERT [address] [address] 09/14/2022 18:31:59 09/14/2022 19:27:14 Impacted cerumen in left ear [id number] 026618 H61.22 Removed wax - small abrasion in the ear canal at the 4 oclock position. Abrasion o f skin of left ear 7013888529 2254561 S00.412A ? If wax when dislocated tore [...] and no pain. Acute left otitis media 378225707 H66.92 You have been diagnosed with a [...] antibiotic resistance . Thank you for using [facility] today - and don't hesitate to contact [...] Galicia Member ID Guarantor Name 09/14/2022 1 [facility] [id number] Bere Larsen [id number] 1 Bere Suzie Notes Date Note Type [...] as a pain. No dizziness or headache. SYMOEN HEBERT [address] [place], [address], [place] - [facility] 09/14/2022 19:41:44 OBGyn Episode No OBEpisode recorded.
== END 2024-07-16 08:28 | disposition home or self-care (01) ==
LOC: HO.HOSX 08:27
PROVIDERS: Visit Provider Orthopaedic Surgery
DX: Z98.890 Other specified postprocedural states (principal)
CPT/HCPCS: 73560

== ENCOUNTER 2024-07-16 09:05 | Outpatient (AMB) | payer OTHER, SELFPAY ==
--- NOTE | 2024-07-16 09:09 | MHC.OFFVIS ---
Vital Signs 07/16/24 09:11 Height 5 ft 1 in Weight 172 lb BMI 32.5 Intake Visit Reasons: OV - Left Knee ACL Recon & MMR 07/24/2023 Intake Note: Bere is a 44 year old female who presents today for a follow up about 11 months s/p Left Knee ACL Reconstruction and Medial Root Repair 07/24/2023. At her last visit she was given a renewed physical therapy order. Patient reports that she is doing well, she did restart physical therapy but she was just discharged this past saturday. Reports no concerns at this time. Allergies amoxicillin Allergy (Mild, Verified 07/16/24 09:14) Rash ivory soap Allergy (Mild, Uncoded 07/16/24 09:14) Rash HPI HPI OV - Left Knee ACL Recon & MMR 07/24/2023: Details: Bere is a 44 year old female who presents today for a follow up about 11 months s/p Left Knee ACL Reconstruction and Medial Root Repair 07/24/2023. At her last visit she was given a renewed physical therapy order. Patient reports that she is doing well, she did restart physical therapy but she was just discharged this past saturday. Reports no concerns at this time. She says she has mild stiffness and does not feel 100% confident in all activities but has no pain. 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 Stable Martin's with no joint line tenderness to palpation. Results Reviewed Results Reviewed: I personally reviewed relevant radiographs. Endo button in appropriate position. No hardware complications. ACL tunnels appear normal Assessment & Plan Assessment & Plan (1) ACL tear: Code(s): S83.519A - Sprain of anterior cruciate ligament of unspecified knee, initial encounter Category: Medical Qualifiers: Encounter type: subsequent encounter Laterality: left Qualified Code(s): S83.512D - Sprain of anterior cruciate ligament of left knee, subsequent encounter Plan: Status post ACL with root and medial meniscus repair. She is doing very well. Continue closed-chain strengthening activities such as biking and walking is good. I would not recommend running given that this is not activity she typically does and would be unnecessary and potentially problematic. She can follow up PRN. Orders: Orders XR knee LT 2V Today Z98.890 - Other specified postprocedural states Coding Level of Care Code Est Pt Level 3 (38342) Diagnoses Rupture of anterior cruciate ligament of left knee, subsequent encounter S83.512D Encounter type: subsequent encounter Laterality: left
[2024-07-16 09:11] VITALS: BMI 32.5
== END 2024-07-16 09:23 | disposition home or self-care (01) ==
LOC: HO.HOS 09:05
PROVIDERS: PCP Internal Medicine; Visit Provider Orthopaedic Surgery
DX: S83.512D Sprain of anterior cruciate ligament of left knee, subsequent encounter (principal)
CPT/HCPCS: 99213

== ENCOUNTER → 2024-07-16 09:07 | Outpatient (BNV) | payer OTHER, SELFPAY | PROVIDERS: Visit Provider Radiology Diagnostic Radiology | DX: S83.511D Sprain of anterior cruciate ligament of right knee, subsequent encounter (principal) | CPT/HCPCS: 73560 ==

== ENCOUNTER 2025-01-27 15:49 | Outpatient (AMB) | payer OTHER, SELFPAY ==
[2025-01-27 15:50] VITALS: BP 160/96; PULSE 66; TEMP 36.4; O2SAT 98; BMI 32.7
--- NOTE | 2025-01-27 15:50 | MHC.OFFWIV ---
Intake Vital Signs 01/27/25 15:50 Height 5 ft 1.5 in Weight 176 lb BMI 32.7 BP 160/96 H Blood Pressure Location Lt brachial Position Sitting Pulse 66 Pulse Source Pulse Oximeter Temp 97.6 F Temp Source Oral Pulse Oximetry (%) 98 Oxygen Delivery Method Room Air Intake Visit Reasons: EP SOB, pain in back Intake Note: Pt presents with SOB overall, epigastric pain, mid upper back radiating pain since 3am this morning and new onset of intense hot flashed today. pt reports eating soup, little amount of hummus and non bread bread. Pt reports poor bowel bovements today. Patient Tobacco Use Status: Former Tobacco user Allergies amoxicillin Allergy (Mild, Verified 01/27/25 15:55) Rash ivory soap Allergy (Mild, Uncoded 01/27/25 15:55) Rash Do you need a note to return to daycare/school/sports/work: No HPI HPI Comments History of Present Illness Details Patient is a 44yo F who presents to office with abdominal/chest pain and SOB She denies issues this severe in the past Hx of acid reflux but never this severe 3am woke up from sleep with pain in center of abdomen/chest Got up and took TUMS and sat upright; fell back asleep but not really Pain continued throughout morning and ate chicken and wild rice soup at lunch and this made pain severe No nausea/vomiting Pain is 5/6 tightness in center of abdomen No hx of abdominal surgeries She feels pain into bra-strap region No diarrhea but slight constipation; small BM this morning but not her usually She does have hx of bleeding hemrroid and had blood in stool 3 days ago; similar symptoms in past She said + SOB due to pain being so severe Pain worse with laying and sitting. Better with standing Worse with deep inspiration. 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 Speaking full sentences. Standing in examination room during interview. Skin: Warm dry throughout. No posterior back ecchymosis or rash Eye: EOMI, PERRL HENT: Airway patent. Uvula midline. No pharyngeal erythema or edema. No KNITTING TEACHER. Bilateral canals clear. TM non-erythematous, non-bulging. No TM perforation or hemotympanum noted. Respiratory: CTA bilaterally. No wheezes, rales or rhonchi Cardiac: RRR. No murmur Abdomen: BS present x 4. No distension. No worsening pain with light palpation of epigastric, and all 4 quadrants. No rebound or guarding MSK: Full ROM extremities. Neurology: Alert. No aphasia or facial droop. Gait without abnormality Psych: Good mood and affect Vital Signs: Last Vital Signs Temp 97.6 F 01/27/25 15:50 Pulse 66 01/27/25 15:50 BP 160/96 H 01/27/25 15:50 Pulse Ox 98 01/27/25 15:50 Oxygen Delivery Method Room Air 01/27/25 15:50 BMI result Body Mass Index 32.7 Assessment & Plan Assessment & Plan (1) Epigastric abdominal pain: Code(s): R10.13 - Epigastric pain Plan: Patient seen and evaluated. I am concerned for abdominal pathology because heart and lung physical exam displayed no abnormality but will get EKG to rule out atypical cardiac presentation EKG: No STEMI. Rate 60bpm. Sinus with short PA, No ST elevations noted. Discussed with pt that this is atypical severe pain that I am worried about acute cholecystitis vs pancreatitis. Recommended ER evaluation for further labs, pain control and possible imaging. Expect called to [place]. Pt refused ambulance but will go to [place] now for evaluation. Patient gave verbal understanding and had no additional questions or concerns at time of discharge All questions answered Orders: Orders AMB EKG-In Office Today R10.13 - Epigastric pain Coding Level of Care Code Est Pt Level 4 (84443) Diagnoses Epigastric abdominal pain R10.13
--- OUTSIDE RECORDS SUMMARY | 2025-01-27 18:49 | XMS_ITS | Data Portability ---
Author Organization [facility] [address] Address [address] [place] [address] Assessment No assessment recorded. Plan of Treatment Reminders Order Date Submit Date Provider Last Modified By Organization Details Last Modified Time Details Appointments None recorded. Lab None recorded. Referral None recorded. Procedures None recorded. Surgeries None recorded. Imaging None recorded. Medication Orders ciprofloxac in 0.3 % eye drops 2022 023 [id number], [address] [place], [address], 19:23:33 clindamycin HCl 300 mg capsule 2022 023 [id number], [address] [place], [address], 19:23:33 Patient TargetsNo targets recorded. Patient Instructions Encounter Date Encounter Id Patient Instructions Last Modified By Organization Details Last Modified Time 09/14/2022 [id number] earache: care instructions Not available 09/14/2022 19:23:31 ear infection (otitis media): care instructions [email or web address] Not available 09/14/2022 19:23:31 Reason for Referral None Reported. Problems Name Problem SNOMED Code Status Onset Date Resolution Date Notes Provider Name and Address Organization Details Recorded Time Eczema 70044051 Active 09/15/19 SYMONE Richards [facility] 09/14/2022 18:49:27 Problem Notes None recorded. Procedures Surgical History Date Name Laterality Status Provider Name and Address Organization Details Recorded Time Cerumen Removal by Irrigation completed SYMONE HEBERT [address] [place], [place] [address]ress [place], [address], [place] [facility] 09/14/2022 19:26:58 Imaging Results None recorded. Procedure Notes None recorded. Medical Equipment None Reported. Allergies Allergen ID Allergen Name Allergen Category Reaction Reaction Severity Criticality Documentation Date Start Date Code Code System Note Provider Name and Address Organization Details Recorded Time 730870 amoxicill in medicatio n Not available Not available Not available 09/14/2022 723 RxNorm SYMONE Richards [facility] 3 18:48:07 Medications Name Sig Start Date Stop [...] Heart rate Respiratory rate Body temperature Systolic And Diastolic Provider Name and Address Organization Details Last Updated DateTime 3 154.94 cm 30.8 kg/m2 34682.5 6 g 97 % 97 % 78 /min 18 /min 97.9 [degF] 120/84 mm[Hg] MIRIAN De Luna [facility] 3 18:52:33 Social History Question Answer Notes LastModified by Organizat ion Details LastModified Time Tobacco Smoking Status Never Smoker SYMONE Richards [facility] 09/14/2022 18:50:32 Which Illicit Or Recreational Drugs Have You Used? Marijuana Information not available 09/14/2022 Have You Had Direct Contact, Or Contact During Intimacy, With Monkeypox Rash, Scabs, Or Body Fluids From A Person With Monkeypox? No Information not available 09/14/2022 Have You Recently Traveled Abroad? No Information not available 09/14/2022 Sex: Unknown Functional Status Question Answer Note LastModified by Organizat ion Details LastModified Time Do you use any illicit or recreational drugs? Yes Information not available 09/14/2022 Do you or have you ever used any other forms of tobacco or nicotine? No Information not available 09/14/2022 What is your level of alcohol consumption? Occasional Information not available 09/14/2022 Mental Status None recorded. Family History Relationship [...] Diagnosis SNOMED-CT Code Diagnosis ICD10 Code Diagnosis IMO Codes Diagnosis Note [id number] SYMONE HEBERT [address] [address] 09/14/2022 18:31:59 09/14/2022 19:27:14 Impacted cerumen in left ear [id number] 286905 H61.22 Removed wax - small abrasion in the ear canal at the 4 oclock position. Abrasion o f skin of left ear [id number] S00.412A ? If wax when dislocated tore [...] and no pain. Acute left otitis media 986364052 H66.92 You have been diagnosed with a [...] antibiotic resistance . Thank you for using [facility] today - and don't hesitate to contact our office if you have any concerns or questions. Health Concerns Section Related Observation LastModified by Organization Detai ls LastModified Time None Recorded Concern Status LastModified by Organization Details LastModified Time None Recorded Advance Directives Directive None Recorded Payers Insurance Date Sequence Insurance Name Policy Number Policy Galicia Covered Member ID Galicia Member ID Guarantor Name 09/16/2022 1 BOBO [id number] Bere Larsen [id number] Bere Larsen Notes Date Note Type Note Provider Name and Address Organization Details Recorded Time 09/14/2022 text/html Ear Pain Brief HPIReported by Patient Ear problem UCReported by PatientHPIFor quality, patient reportsclogged. For severity, patient reportssevere. For source of patient information, patient reportsinformation obtained from patientandpatient arrived at urgent care ambulatory. For location, patient reportsbilateral. For duration, patient reports4 weeks. For modifying factors, patient reportsdoes not hurt to lie on, or pull on ear.The patient states ear sounds clog. Irritation running down the side of the ear when she pushes on it. Last night thought throat felt wierd. Not described as a pain. No dizziness or headache. SYMONE HEBERT [address], [place], [address], [place] - [facility] 09/14/2022 19:41:44 OBGyn Episode No OBEpisode recorded.
== END 2025-01-27 16:25 | disposition home or self-care (01) ==
PROVIDERS: Visit Provider Physician Assistant
DX: R10.13 Epigastric pain (principal)

== ENCOUNTER 2025-01-27 16:35 | Inpatient (IN) | payer OTHER, SELFPAY ==
--- NOTE | ~2025-01-27 | FL_ITS ---
EXAMINATION: FLUOROSCOPY GUIDANCE FOR NEEDLE PLACEMENT CLINICAL INFORMATION: ercp COMPARISON: CT of the abdomen and pelvis and limited abdominal ultrasound January 27, 2025 TECHNIQUE: Intraoperative fluoroscopy provided for ERCP. FINDINGS: There is no intra or extrahepatic biliary duct dilatation. No filling defect is appreciated on the submitted images. Later images demonstrate balloon placement in the common bile duct. There is decompression of the biliary system at the completion of the procedure. The visualized gallbladder is unremarkable. FLUOROSCOPY TIME: 2 minutes 18 seconds DOSE AREA PRODUCT: 11.7 Gy-cm2 . 9 submitted fluoroscopic images. FL/FL guidance in OR IMPRESSION: Fluoroscopy guidance for ERCP. Electronically signed by: Shannan Carter MD 01/29/2025 08:[address] [facility]
--- NOTE | ~2025-01-27 | CT_ITS ---
CLINICAL HISTORY: upper abdominal pain CT abdomen and pelvis with contrast Comparison: US - US ABDOMEN LIMITED - 01/27/25 16:56 EST Findings: No consolidation or effusion. There is an elongated stone within the distal common bile duct measuring 17 mm in length and 4 mm in cross-sectional diameter. The common bile duct is borderline diameter. There are gallstones within the gallbladder which were not visible on the prior ultrasound, suggesting technical limitations. The liver, spleen, pancreas, kidneys and adrenal glands are unremarkable. No bowel obstruction, pneumoperitoneum, or pneumatosis. Pelvic contents unremarkable. Normal appendix. No acute fracture. IMPRESSION: There is cholelithiasis and choledocholithiasis. This document has been electronically signed by: Leida Crane MD on 01/27/2025 19:19:51
--- NOTE | ~2025-01-27 | US_ITS ---
CLINICAL HISTORY: RUQ pain --- Additional Notes or Special Instructions: look at gb, ducts, liver, pancreas US abdomen limited Comparison: None provided Findings: Limited visualization of the pancreas secondary to overlying bowel gas. No obvious focal abnormality. The visualized IVC is unremarkable. The liver measures 17.3 cm in length. Liver echogenicity is unremarkable. There is no intrahepatic bile duct dilatation. The common duct is 2.0 mm in diameter. The gallbladder is normal. The sonographic Cerda's sign was positive The main portal vein is antegrade. No ascites. IMPRESSION: 1. No cholelithiasis or biliary dilatation. A positive sonographic Cerda's sign was documented, of uncertain significance. This document has been electronically signed by: Leida Crane MD on 01/27/2025 17:30:13
[2025-01-27 16:41] VITALS: BP 164/80; PULSE 67; RESP 18; TEMP 36.8; O2SAT 96; BMI 33.2
--- NOTE | 2025-01-27 16:43 | ED.GENADULT ---
HPI - General Adult General Chief complaint: Abdominal Pain Stated complaint: acid reflex, SOB Time Seen by Provider: 01/27/25 17:06 Source: patient, RN notes reviewed and old records reviewed Mode of arrival: ambulatory Limitations: no limitations History of Present Illness ED Provider: Carline SPRINGER narrative: 44-year-old female with a history of GERD presents for evaluation of upper abdominal pain. she reports that she woke up around 3 in his morning with severe upper abdominal pain and she took Tums without any significant improvement. Her pain seemed to improve in the next few hours and she is able to go to work. She states that she had chicken rice soup and immediately after having super pain became significantly worse with 10/10 upper abdominal pain located centrally with the associated nausea and vomiting denies any fevers, chills pain She has no history abdominal surgeries no other complaints or concerns at this time Related Data Home Medications ?Medication ?Instructions ?Recorded ?Confirmed cholecalciferol (vitamin D3) 50 50 mcg PO DAILY 01/27/25 01/27/25 mcg (2,000 unit) capsule Allergies Allergy/AdvReac Type Severity Reaction Status Date / Time amoxicillin Allergy Mild Rash Verified 01/27/25 16:45 ivory soap Allergy Mild Rash Uncoded 01/27/25 16:45 Review of Systems Constitutional: Constitutional: Denies body ache(s), Denies chills, Denies fever(s) and Denies headache(s) Eyes: Eyes: Denies blurry vision ENT: Denies vertigo, Denies dizziness and Denies headache(s) Cardiovascular: Cardiovascular: Denies chest pain and Denies dyspnea on exertion Respiratory: Respiratory: Denies cough and Denies dyspnea on exertion Gastrointestinal: Gastrointestinal: Reports abdominal pain, Reports nausea and Reports vomiting Integumentary/Breasts: Skin/Breast: Denies rash Neurologic: Denies vertigo, Denies dizziness and Denies headache(s) Psychiatric: Psychiatric: Denies anxiety PMF Past Medical History Surgical History History of repair of ACL (07/20/23) Family History Family History Mother Diabetes Father Prostate cancer Paternal Uncle Colon cancer Social History Social History (Reviewed 07/16/24 @ 09:15 by JEROME Mitchell Household Members: Significant Other Household Members Other:: execise 3 x a week Housing: House Do you presently have visiting nurse or other home services: No Alcohol intake: current Alcohol intake frequency: a few times a week Alcohol type: other Comment: twisted teas Patient Tobacco Use Status: Former Tobacco user Smoked in Last 30 Days: No e-Cigarette/Vaping Use: Never Used Use of substances other than those prescribed or required for medical reasons: No Have you been hit, kicked, punched, or otherwise hurt by someone within the past year? 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 [employer] Current occupational exposures/hazards: No Cognitive needs: No Hearing needs: No Vision needs: No Physical Exam ED Vital Signs: Vital Signs - 24 hr 01/27/25 16:41 01/27/25 17:11 01/27/25 18:04 Temperature 98.2 F 97.8 F Pulse Rate 67 64 67 Respiratory Rate 18 16 16 Blood Pressure 164/80 H 153/78 H 139/84 Pulse Oximetry 96 95 97 Oxygen Delivery Method Room Air Room Air Room Air 01/27/25 20:12 Temperature 97.8 F Pulse Rate 90 Respiratory Rate 16 Blood Pressure 131/92 H Pulse Oximetry 98 Oxygen Delivery Method Room Air BMI result Body Mass Index 33.2 Const General: healthy appearing, comfortable, no acute distress, alert and awake Nutritional Appearance: well nourished Orientation/consciousness: patient oriented x3 HENMT Head: Yes normocephalic and Yes atraumatic Eyes Eyelids: Yes eyelids normal Conjunctivae: conjunctivae normal Sclerae: sclerae normal Corneas: corneas normal Pupils: Equal, round and reactive pupils present EOM: EOMs intact bilaterally Neck Neck: Yes full ROM Resp Effort & Inspection: normal respiratory effort, able to speak in complete sentences and not labored Cardio Rate: regular rate Rhythm: regular rhythm GI Inspection: No distended Palpation (GI): Soft to palpation, not firm, Tenderness to palpation present (GI) in the epigastrum; not in the LLQ, not in the RLQ, not in the LUQ, not in the RUQ and Cerda's sign negative, no guarding and not rigid Skin General skin exam: elasticity normal Neuro General: patient oriented x3 Cranial nerves: Yes Equal, round and reactive pupils present and Yes Bilaterally intact EOM present Cognition (Neuro): normal cognition Extrem Other: Moving all extremities well without any obvious deformities Course Course Course Narrative: This is a Rapid Medical Examination (RME) performed by Monie Fortune PA-C in triage. Full HPI, ROS, assessment and treatment plan per primary provider in the Main ED. Hx: 44 yo F here w/ RUQ/epigastric abd pain since last night, burning sensation similar to acid reflux, now radiating to back. worse w/ eating. reports assoc sob. seen at walk in - normal ekg, sent here for ?GB issues. she took tums w/o improvement. Plan: labs, ekg, US Medications Administered Generic Name Dose Route Start Last Admin Trade Name Freq PRN Reason Stop Dose Admin Lactated Ringer's 1,000 mls @ 125 mls/hr 01/27/25 20:30 01/27/25 21:42 Lr IVCONT 01/28/25 04:29 125 mls/hr .Q8H ALYSIA Administration Discontinued Medications Generic Name Dose Route Start Last Admin Trade Name Freq PRN Reason Stop Dose Admin Sodium Chloride 1,000 mls @ 999 mls/hr 01/27/25 17:30 01/27/25 18:39 Ns IV 01/27/25 18:30 Infused .Q1H1M ALYSIA Infusion Metronidazole 500 mg in 100 mls @ 100 mls/hr 01/27/25 20:06 01/27/25 21:31 Flagyl IV 01/27/25 21:05 Infused ONCE ONE Infusion Ciprofloxacin 400 mg in 200 mls @ 200 mls/hr 01/27/25 20:06 01/27/25 21:42 Cipro IV 01/27/25 21:05 Infused ONCE ONE Infusion Iohexol 100 ml 01/27/25 18:20 01/27/25 18:20 Iohexol 350 Mg/Ml 100 Ml Infus..Btl IV 01/27/25 18:21 85 ml ONCE ONE Administration Morphine Sulfate 4 mg 01/27/25 17:25 01/27/25 17:39 Morphine Sulfate 4 Mg/Ml Cartridge IVPUSH 01/27/25 17:26 4 mg ONCE ONE Administration Protocol Ondansetron HCl 4 mg 01/27/25 17:25 01/27/25 17:36 Ondansetron Hcl 4 Mg/2 Ml Vial IVPUSH 01/27/25 17:26 4 mg ONCE ONE Administration Medical Decision Making Medical Decision Making [facility] Narrative: 44-year-old female with a past medical history significant for GERD presents for evaluation of severe epigastric abdominal pain starting at 3:00 a.m. this morning. Her pain worsened after she had lunch today. She denies any history abdominal surgeries. She appears quite uncomfortable but nontoxic appearing. She is tender in the epigastric region. Negative Cerda's [place] [id number]. Her chemistries significant for an elevated total bilirubin of 3.5 which is mostly direct bilirubin of 2.1. This is mostly indicative of an obstructive biliary disease. However her ultrasound of her gallbladder did not show any gallstones or evidence of cholecystic fluid. CBD was noted to be within normal limits. I suspect that she has a distal stone or obstruction. I added on a CT scan of the abdomen and pelvis, added on lipase to evaluate for acute pancreatitis. we will treat her symptoms with IV fluids, morphine and Zofran. Differential Diagnosis Differential Diagnoses: The differential diagnosis associated with the presentation includes Peptic ulcer disease Perforated viscus Cholecystitis Cholelithiasis Choledocholithiasis Acute pancreatitis Gallstone pancreatitis GERD Admission/Observation Consideration of admission/observation: Escalation of care including admission/observation considered Lab Data [facility] Lab Attestation statement: I reviewed the patient's lab results. as above 01/27/25 16:59 01/27/25 16:59 Labs: Lab Results 01/27/25 Range/Units 16:59 WBC 14.0 H (4.8-10.8) X10*3/uL RBC 5.01 (4.20-5.50) X10*6/uL Hgb 15.5 (12.0-16.0) g/dl Hct 45.9 (37.0-47.0) % MCV 91.6 (80.0-98.0) fL MCH 30.9 (27.0-33.0) pg MCHC 33.8 (31.0-35.0) g/dl RDW 13.6 (11.0-16.0) % Plt Count 421 H (160-400) X10*3/uL MPV 9.5 (9.4-12.3) fL Immature Gran % (Auto) 0.6 H (0.0-0.4) % Neut % (Auto) 83.4 H (45-73) % Lymph % (Auto) 8.9 L (20-40) % Broome % (Auto) 6.3 (2-11) % Eos % (Auto) 0.4 (0-4) % Baso % (Auto) 0.4 (0-2) % Lymph # (Auto) 1.3 (1.2-4.9) X10*3/uL Broome # (Auto) 0.9 (0.1-1.2) X10*3/uL Eos # (Auto) 0.1 (0.0-0.4) X10*3/uL Baso # (Auto) 0.1 (0.0-0.2) X10*3/uL Abs Immat Gran (auto) 0.08 H (0.00-0.03) X10*3/uL Absolute Neuts (auto) 11.7 H (2.0-8.3) x10*3/uL Absolute Nucleated RBC 0.000 (0.0-0.012) X10*3/uL Nucleated RBC % (auto) 0.0 (0.0-0.2) /100WBC Sodium 140 (135-145) mmol/L Potassium 4.1 (3.3-5.1) mmol/L Chloride 101 (96-108) mmol/L Carbon Dioxide 28 (22-29) mmol/L Anion Gap 15 (12-20) BUN 11 (9-16) mg/dL Creatinine 0.76 (0.5-1.4) mg/dL Estim Creat Clear Calc 91.1 Estimated GFR > 60 Random Glucose 112 (60-115) mg/dL Calcium 10.2 D (8.4-10.2) mg/dL Magnesium 1.8 (1.6-2.6) mg/dL Total Bilirubin 3.5 H (0.0-1.0) mg/dL Direct Bilirubin 2.1 H (0.0-0.5) mg/dL AST 909 H (5-31) U/L ALT 930 H (0-31) U/L Alkaline Phosphatase 130 H (39-117) U/L Troponin I High Sens < 2.7 (<3.5-17.0) ng/L Total Protein 8.1 H (6.5-8.0) g/dL Albumin 4.8 (3.5-5.0) g/dL Lipase 26 (8-78) U/L Beta HCG, Quant < 2 mIU/mL Discharge Plan Discharge Clinical Impression: Common bile duct calculus Patient Disposition: Admitted As Inpatient Interventions: Admission Worksheet (ED) Last Done: 01/27/25 21:22 Discharge Date/Time: 01/27/25 22:11
--- NOTE | 2025-01-27 16:45 | ECG_ITS ---
Test Reason : sob Blood Pressure : */* mmHG Vent. Rate : 58 BPM Atrial Rate : 58 BPM P-R Int : 106 ms QRS Dur : 72 ms QT Int : 430 ms P-R-T Axes : 52 53 50 degrees QTcB Int : 422 ms Sinus bradycardia with short [place] Otherwise normal ECG No previous ECGs available Referred By: Maribel Fortune Electronically Signed By: KENYATTA AVERY MD
[2025-01-27 17:05] LABS: MANUAL DIFF FLAG NO
[2025-01-27 17:07] LABS: Hematocrit 45.9 % (37.0-47.0); Hemoglobin 15.5 g/dl (12.0-16.0); Imm Gran Abs Auto 0.08 X10*3/uL (0.00-0.03); Imm Gran Pct Auto 0.6 % (0.0-0.4); Lymphocytes Absolute Auto 1.3 X10*3/uL (1.2-4.9); Mean Corpuscular HGB Conc 33.8 g/dl (31.0-35.0); Mean Corpuscular Hemoglobin 30.9 pg (27.0-33.0); Mean Corpuscular Volume 91.6 fL (80.0-98.0); NRBC Abs Auto 0.000 X10*3/uL (0.0-0.012); NRBC Pct Auto 0.0 /100WBC (0.0-0.2); Platelet Count 421 X10*3/uL (160-400); Red Blood Count 5.01 X10*6/uL (4.20-5.50); White Blood Count 14.0 X10*3/uL (4.8-10.8)
[2025-01-27 17:11] VITALS: BP 153/78; PULSE 64; RESP 16; O2SAT 95
[2025-01-27 17:40] LABS: Alanine Aminotransferase 930 U/L (0-31); Albumin Level 4.8 g/dL (3.5-5.0); Alkaline Phosphatase 130 U/L (39-117); Anion Gap 15 (12-20); Aspartate Amino Transferase 909 U/L (5-31); Blood Urea Nitrogen 11 mg/dL (9-16); Calcium 10.2 mg/dL (8.4-10.2); Carbon Dioxide 28 mmol/L (22-29); Chloride 101 mmol/L (96-108); Creatinine Clr Calc Pharmacy 91.1; Estimated Glomerular Filt Rate > 60; Magnesium 1.8 mg/dL (1.6-2.6); Potassium 4.1 mmol/L (3.3-5.1); Sodium 140 mmol/L (135-145); Total Protein 8.1 g/dL (6.5-8.0); Troponin-I High Sensitivity < 2.7 ng/L (<3.5-17.0)
[2025-01-27 18:00] LABS: Lipase 26 U/L (8-78)
[2025-01-27 18:04] VITALS: BP 139/84; PULSE 67; RESP 16; TEMP 36.6; O2SAT 97
[2025-01-27] MEDS: iohexoL 350 MG/ML 100 ML INFUS..BTL IV (18:20)
--- OUTSIDE RECORDS SUMMARY | 2025-01-27 19:14 | XMS_ITS ---
Author Organization Unknown ENCOUNTERS Encounter Performer Location Date Diagnosis Diagnosis Status Emergency [address] [place] [address] [id number] Pre Admit [address] [address] [id number] Outpatient [address] [address] [id number] ANGELO Pre Admit [address] [address] [id number] Pre Admit [address] [address] [id number] Outpatient [address] [address] [id number] ANGELO *Note: Encounters from your own facility or health system may be excluded. Allergies, Adverse Reactions, Alerts Allergen Type Severity Identification Date amoxicillin drug allergy 2 [id number] Medications Name Date Quantity Days Supplied GPI Number
[2025-01-27 20:12] VITALS: BP 131/92; PULSE 90; RESP 16; TEMP 36.6; O2SAT 98
[2025-01-27] MEDS: metroNIDAZOLE/NS 500 MG/100 ML PIGGYBACK 100 MG IV (20:31)
--- NOTE | 2025-01-27 20:50 | PHA.MEDREC ---
Addendum entered by Bao Marlow RPh 01/27/25 21:05: med rec reviewed Original Note: Pharmacy Consult ? Medication Reconciliation Pharmacy has completed the medication reconciliation. Spoke with pt and she confirmed she is taking Vitamin D3 50mcg once daily and nothing else at this time.
--- NOTE | 2025-01-27 20:52 | P.HPHOSP_ITS ---
History of Present Illness Date of Service: 01/27/25 Attending physician on admission: Kelin Montejo Chief Complaint: Abdominal pain Bere Larsen is a very pleasant 44 years old woman with a past medical history significant for hyperlipidemia not currently on medications presents to the emergency department complaining of epigastric pain that started today at 03:00. Pain radiates to the back and intensity 6/10. She took Tums with minimal improvement. The pain intensified 30 minutes after eating soup at lunch time and noted that pain increases with deep inspiration. She also reported nausea and vomiting x1. She also experienced some shortness on breath. She denied diarrhea or fever. She denied abdominal past medical history and denied history of gallstones. Patient did not report any acute urinary symptoms. Family history significant for prostate cancer, father. She denied alcohol abuse, tobacco smoking or illicit drug use. In the ED, she was found to have stable vital signs. Blood workup was remarkable for leukocytosis of 14.0. Hemoglobin 15.5 and platelets 421. There are no electrolyte imbalances and renal function is normal. Total bilirubin is 3.5, direct bilirubin 2.1, AST 909, ALT 930 and alk-phos 130. Lipase is 26. test is negative. ECG showed sinus bradycardia, HR 58 bpm and short OK. Abdominal CT scan with IV contrast showed cholelithiasis and choledocholithiasis. CBD is borderline in diameter. Abdominal ultrasound showed no cholelithiasis or biliary dilatation with positive sonographic Cerda's signs. ED tx: NS 1 L bolus, morphine 4 mg IV, Zofran 4 mg IV Review of Systems 2 Review of Systems: All 12 systems were reviewed and normal except as noted in HPI. FOR[facility]LY [facility] Family History Mother Diabetes Father Prostate cancer Paternal Uncle Colon cancer Surgical History History of repair of ACL (07/20/23) Social History Household Members: Significant Other Household Members Other:: execise 3 x a week Housing: House Do you presently have visiting nurse or other home services: No Alcohol intake: current Alcohol intake frequency: a few times a week Alcohol type: other Comment: twisted teas Patient Tobacco Use Status: Former Tobacco user Smoked in Last 30 Days: No e-Cigarette/Vaping Use: Never Used Use of substances other than those prescribed or required for medical reasons: No Currently Displaying Signs/Symptoms of Drug Intoxication Withdrawal: No Have you been hit, kicked, punched, or otherwise hurt by someone within the past year? 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 [employer] Current occupational exposures/hazards: No Cognitive needs: No Hearing needs: No Vision needs: No Meds Allergies Allergy/AdvReac Type Severity Reaction Status Date / Time amoxicillin Allergy Mild Rash Verified 01/27/25 16:45 ivory soap Allergy Mild Rash Uncoded 01/27/25 16:45 Active Medications: Current Medications Hydromorphone HCl (Hydromorphone Hcl 0.5 Mg/0.5 Ml Syringe) 0.5 mg IVPUSH Q3H PRN; Protocol PRN Reason: Pain, Severe (Pain Scale 7-10) Metronidazole (Flagyl) 500 mg in 100 mls @ 100 mls/hr IV ONCE ONE Stop: 01/27/25 21:05 Last Admin: 01/27/25 20:31 Dose: 100 mls/hr Ciprofloxacin (Cipro) 400 mg in 200 mls @ 200 mls/hr IV ONCE ONE Stop: 01/27/25 21:05 Last Admin: 01/27/25 20:36 Dose: 200 mls/hr Lactated Ringer's (Lr) 1,000 mls @ 125 mls/hr IVCONT .Q8H ALYSIA Stop: 01/28/25 04:29 Melatonin (Melatonin 3 Mg Tablet) 6 mg PO BEDTIME PRN PRN Reason: Insomnia Ondansetron HCl (Ondansetron Hcl 4 Mg/2 Ml Vial) 4 mg IVPUSH Q6H PRN PRN Reason: Nausea and Vomiting Sodium Chloride (0.9 % Sodium Chloride Flush 3 Ml Syringe) [address] [facility] Home Medications ?Medication ?Instructions ?Recorded ?Confirmed ?Last Taken ?Type cholecalciferol (vitamin D3) 50 50 mcg PO DAILY 01/27/25 01/27/25 History mcg (2,000 unit) capsule Physical Exam 2 Vital Signs and Narrative: Vital Signs: Last Vital Signs Temp 97.8 F 01/27/25 20:12 Pulse 90 01/27/25 20:12 Resp 16 01/27/25 20:12 BP 131/92 H 01/27/25 20:12 Pulse Ox 98 01/27/25 20:12 O2 Del Method Room Air 01/27/25 20:12 BMI result Body Mass Index 33.2 General: Alert, oriented, in no acute distress. Well nourished and cooperative. Afebrile. HEENT: Head normocephalic, atraumatic. PER, EOMI. Mild icteric sclerae. Neck: Supple. Heart: RRR, no murmurs, rubs or gallops. Lungs: Clear to auscultation bilaterally. No wheezes, rales, or rhonchi. Normal respiratory effort. Abdomen: Soft, non tenderness, nondistended, increased bowel sounds. Extremities: No calf tenderness bilaterally, no swelling Musculoskeletal: Full range of motion. No joint swelling, deformity, or tenderness. Normal muscle tone and strength. Skin: Warm/Dry. No pallor. No jaundice. Neurologic: Alert & oriented x4. Moving all extremities spontaneously. Normal speech. Psychological: Normal mood and affect. Thought process coherent. Results Labs 01/28/25 05:10 01/27/25 16:59 Labs: Laboratory Results - last 24 hr 01/27/25 16:59 MCV 91.6 MCH 30.9 MCHC 33.8 RDW 13.6 Plt Count 421 H MPV 9.5 Immature Gran % (Auto) 0.6 H Neut % (Auto) 83.4 H Lymph % (Auto) 8.9 L Fleming % (Auto) 6.3 Eos % (Auto) 0.4 Baso % (Auto) 0.4 Lymph # (Auto) 1.3 Fleming # (Auto) 0.9 Eos # (Auto) 0.1 Baso # (Auto) 0.1 Abs Immat Gran (auto) 0.08 H Absolute Neuts (auto) 11.7 H Absolute Nucleated RBC 0.000 Nucleated RBC % (auto) 0.0 Anion Gap 15 Estim Creat Clear Calc 91.1 Estimated GFR > 60 Random Glucose 112 Calcium 10.2 D Magnesium 1.8 Total Bilirubin 3.5 H Direct Bilirubin 2.1 H AST 909 H ALT 930 H Alkaline Phosphatase 130 H Troponin I High Sens < 2.7 Total Protein 8.1 H Albumin 4.8 Lipase 26 Beta HCG, Quant < 2 Assessment and Plan (1) Choledocholithiasis: Status: Acute (2) Hyperlipidemia: Qualifiers: Hyperlipidemia type: unspecified Qualified Code(s): E78.5 - Hyperlipidemia, unspecified Status: Acute Plan Bere Larsen this is a 44 y/o woman who presents with: Choledocholithiasis. NPO. IV fluids. Empiric IV antibiotic therapy with Cipro and Flagyl (pt allegic to amoxicillin). GI and surgery consult. Continue to monitor LFTs and lipase. Hypercholesterolemia. Not taking meds. Check lipid panel and TSH. Code status: Full DVT prophylaxis: SCDs (possible procedure in am). Patient will need hospitalization for at least 2 midnights for acute cholecystitis therapy with empiric IV antibiotic, IV pain meds and evaluation by subspecialty and surgery for possible procedures. This documentation was generated using dictation software; minor spreading or play leader errors may be present. Quality Stroke Does the patient have a stroke diagnosis?: No VTE Prior VTE?: No VTE Risk Level:: Medical - moderate - high VTE Device Contraindication: N/A - Device Ordered VTE Drug Contraindication: Treatment Not Indicated
[2025-01-27 21:09] LABS: INTERNATIONAL NORM RATIO 1.0 (0.9-1.1); Prothrombin Time 11.8 SEC (11.2-13.5)
[2025-01-27] MEDS: Lactated Ringers 1,000 ML 125 ML IVCONT (21:42)
[2025-01-27 22:09] VITALS: BMI 33.5
[2025-01-27 22:12] VITALS: BP 126/82; PULSE 76; RESP 17; TEMP 36.4; O2SAT 97
[2025-01-28] VITALS (8 sets, daily range): BP systolic 117–153; BP diastolic 56–90; PULSE 66–90; RESP 16–18; TEMP 36.3–36.9; O2SAT 94–99
[2025-01-28] MEDS: metroNIDAZOLE/NS 500 MG/100 ML PIGGYBACK 100 MG IV ×3 (04:05→21:30)
[2025-01-28 05:48] LABS: MANUAL DIFF FLAG NO
--- NOTE | 2025-01-28 05:51 | P.CONGS_ITS ---
History of Present Illness Consult details Consult date: 01/28/25 <Shari Neri PA-C - Last Filed: 01/28/25 09:47> Reason for consult: gallstones <ERNESTO Manley Last Filed: 01/28/25 09:47> Requesting physician: Kelin Montejo <Shari Neri PA-C - Last Filed: 01/28/25 09:47> Narrative: 44 year old woman with PMH significant for hyperlipidemia who presented to the ED with complaints of epigastric pain. The patient reports yesterday morning she awoke with a sharp epigastric abdominal pain around 3am. She took tums with maybe some improvement. She was able to go to work and ate soup for lunch. About 30 minutes after the pain acutely worsened. The pain was associated with nausea and vomiting. It radiated to her back. She felt short of breath due to the severity of the pain and inability to take a deep breath. She therefore presented to urgent care for evaluation who sent her to the ED. Work up included CBC, BMP, LFTs which was significant for a leukocytosis of 14. She also had significantly elevated liver enzymes with total/direct bili of 3.5/2.1, AST/ALT 909/930. ABD US and CT scan abd/pelvis were obtained which showed gallstones, and distal CBD stone. She denies fevers, chills, diarrhea, changes in skin, urine or stool color. She reports occasionally having similar episodes of pain prior however they resolved by morning and she attributed it to reflux. She has never had abdominal surgery. <Shari Neri PA-C - Last Filed: 01/28/25 09:47> Review of Systems 2 Review of Systems: Yes all other systems are reviewed and are negative < Shari Neri PA-C - Last Filed: 01/28/25 09:47> [facility] Family History Family History: Family History Mother Diabetes Father Prostate cancer Paternal Uncle Colon cancer <ERNESTO Manley Last Filed: 01/28/25 09:47> Surgical History Surgical History: Surgical History History of repair of ACL (07/20/23) <ERNESTO Manley Last Filed: 01/28/25 09:47> Social History Social History: Social History Household Members: Significant Other Household Members Other:: execise 3 x a week Housing: House Do you presently have visiting nurse or other home services: No Alcohol intake: current Alcohol intake frequency: holidays/special occasions only Alcohol type: other Comment: twisted teas Patient Tobacco Use Status: Former Tobacco user Smoked in Last 30 Days: No e-Cigarette/Vaping Use: Never Used Use of substances other than those prescribed or required for medical reasons: Yes Substance Use Type Other:: gummies Currently Displaying Signs/Symptoms of Drug Intoxication Withdrawal: No Have you been hit, kicked, punched, or otherwise hurt by someone within the past year? If so, by whom?: No Do you feel safe in your current relationship?: Yes Is there a partner from a previous relationship who is making you feel unsafe now?: No Are you made to feel afraid or neglected: No Are you DNR?: No Advance Directives: No Advance Directives Information Provided: No Do you have a plan to hurt others: No Plan Recently lost weight without trying: No How much weight loss: Not applicable Eating poorly because of decreased appetite: No Nutrition screen score: 0 Nutrition Risks: No Nutritional Risk Patient : No : No Poor oral hygiene: No service: No Current occupational status: employed 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 [employer] Current occupational exposures/hazards: No Cognitive needs: No Hearing needs: No Vision needs: No <Shari Neri PA-C - Last Filed: 01/28/25 09:47> Meds Allergies/Adverse reactions: Allergies Allergy/AdvReac Type Severity Reaction Status Date / Time amoxicillin Allergy Mild Rash Verified 01/27/25 16:45 ivory soap Allergy Mild Rash Uncoded 01/27/25 16:45 <Shari Neri PA-C - Last Filed: 01/28/25 09:47> Active Medications: Current Medications Hydromorphone HCl (Hydromorphone Hcl 0.5 Mg/0.5 Ml Syringe) 0.5 mg IVPUSH Q3H PRN; Protocol PRN Reason: Pain, Severe (Pain Scale 7-10) Metronidazole (Flagyl) 500 mg in 100 mls @ 100 mls/hr IV Q8H [facility] Last Infusion: 01/28/25 05:05 Dose: Infused Ciprofloxacin (Cipro) 400 mg in 200 mls @ 200 mls/hr IV Q12H [facility] Melatonin (Melatonin 3 Mg Tablet) 6 mg PO BEDTIME PRN PRN Reason: Insomnia Last Admin: 01/27/25 22:24 Dose: 6 mg Prochlorperazine Edisylate (Prochlorperazine Edisylate 10 Mg/2 Ml Vial) 5 mg IVPUSH Q6H PRN PRN Reason: Nausea and Vomiting Sodium Chloride (0.9 % Sodium Chloride Flush 3 Ml Syringe) 3 ml IVFLUSH QSHIFT [facility] Last Admin: 01/28/25 00:24 Dose: Not Given <ERNESTO Manley Last Filed: 01/28/25 09:47> Home medications: Home Medications ?Medication ?Instructions ?Recorded ?Confirmed ?Last Taken ?Type cholecalciferol (vitamin D3) 50 50 mcg PO DAILY 01/27/25 01/27/25 History mcg (2,000 unit) capsule <ERNESTO Manley Last Filed: 01/28/25 09:47> Physical Exam 2 Vital Signs: Vital Signs: Last Vital Signs Temp 98.1 F 01/28/25 03:16 Pulse 77 01/28/25 03:16 Resp 16 01/28/25 03:16 BP 117/56 L 01/28/25 03:16 Pulse Ox 96 01/28/25 03:16 O2 Del Method Room Air 01/28/25 03:16 BMI result Body Mass Index 33.5 <ERNESTO Manley Last Filed: 01/28/25 09:47> Const: General: comfortable, no acute distress and alert <ERNESTO Manley Last Filed: 01/28/25 09:47> Orientation/consciousness: patient oriented x3 <ERNESTO Manley Last Filed: 01/28/25 09:47> Eyes: Sclerae: scleral abnormal (icteric) <Shari RobinsdeauSYMONENasrin De Luna Last Filed: 01/28/25 09:47> Resp: Effort & Inspection: normal respiratory effort <Shari RobinsdeauSYMONENasrin De Luna Last Filed: 01/28/25 09:47> GI: Other: soft mild epigastric tenderness <Shari RobinsSYMONE cardozaNasrin De Luna Last Filed: 01/28/25 09:47> Inspection: Yes normal to inspection <Shari WalshbodeauSYMONENasrin De Luna Last Filed: 01/28/25 09:47> Palpation (GI): no guarding <Shari RobinsdeauSYMONENasrin De Luna Last Filed: 01/28/25 09:47> Percussion: Yes normal to percussion <Shari RobinsdeauSYMONENasrin De Luna Last Filed: 01/28/25 09:47> Skin: General skin exam: no rashes or lesions noted and jaundice <Shari WalshSYMONE steelNasrin De Luna Last Filed: 01/28/25 09:47> Neuro: General: patient oriented x3 <Shari Walshbodeau ERNESTO De Luna Last Filed: 01/28/25 09:47> Results Labs Result diagrams: 01/28/25 05:10 01/28/25 05:10 <Shari WalshSYMONE steelNasrin De Luna Last Filed: 01/28/25 09:47> Labs: Abnormal lab results 01/27/25 Range/Units 16:59 WBC 14.0 H (4.8-10.8) X10*3/uL Plt Count 421 H (160-400) X10*3/uL Immature Gran % (Auto) 0.6 H (0.0-0.4) % Neut % (Auto) 83.4 H (45-73) % Lymph % (Auto) 8.9 L (20-40) % Abs Immat Gran (auto) 0.08 H (0.00-0.03) X10*3/uL Absolute Neuts (auto) 11.7 H (2.0-8.3) x10*3/uL Total Bilirubin 3.5 H (0.0-1.0) mg/dL Direct Bilirubin 2.1 H (0.0-0.5) mg/dL AST 909 H (5-31) U/L ALT 930 H (0-31) U/L Alkaline Phosphatase 130 H (39-117) U/L Total Protein 8.1 H (6.5-8.0) g/dL Short CBC 01/27/25 Range/Units 16:59 WBC 14.0 H (4.8-10.8) X10*3/uL Hgb 15.5 (12.0-16.0) g/dl Hct 45.9 (37.0-47.0) % Plt Count 421 H (160-400) X10*3/uL BMP 01/27/25 16:59 Sodium 140 Potassium 4.1 Chloride 101 Carbon Dioxide 28 BUN 11 Creatinine 0.76 Calcium 10.2 D Liver Function 01/27/25 Range/Units 16:59 Total Bilirubin 3.5 H (0.0-1.0) mg/dL Direct Bilirubin 2.1 H (0.0-0.5) mg/dL AST 909 H (5-31) U/L ALT 930 H (0-31) U/L Alkaline Phosphatase 130 H (39-117) U/L Albumin 4.8 (3.5-5.0) g/dL All other labs normal. <Shari Neri PA-C - Last Filed: 01/28/25 09:47> Imaging Abdomen CT scan report/results: report reviewed and image reviewed <Shari Neri PA-C - Last Filed: 01/28/25 09:47> Additional studies: labs reviewed <Shari Neri PA-C - Last Filed: 01/28/25 09:47> Assessment and Plan (1) Choledocholithiasis: Status: Acute <Shari Neri PA-C - Last Filed: 01/28/25 09:47> 44 year female with epigastric pain with abnormal LFTs, CBD stone on imaging She just had her ERCP with retrieval of CBD stones, and sphincterotomy Stable vital signs, abdomen is soft She has markedly elevated LFTs Plans to eventually to cholecystectomy, but would await for LFTs to improve I have seen and examined independently <John Chavez MD - Last Filed: 01/28/25 15:30> 44 year old woman with PMH significant for hyperlipidemia with acute onset epigastric pain for one day found to have significantly elevated LFTs and distal CBD stone on imaging. Awaiting GI evaluation for possible ERCP for the CBD stone. Discussed proceeding with laparoscopic cholecystectomy possible open to prevent recurrence of the choledocolithiasis. She would like to proceed with this during this hospitalization. <Shari Neri PA-C - Last Filed: 01/28/25 09:47> Procedures Date of Service Date of Service: 01/28/25 <Shari Neri PA-C - Last Filed: 01/28/25 09:47> 01/28/25 <John Chavez MD - Last Filed: 01/28/25 15:30>
[2025-01-28 05:57] LABS: Hematocrit 40.6 % (37.0-47.0); Hemoglobin 13.5 g/dl (12.0-16.0); Imm Gran Abs Auto 0.05 X10*3/uL (0.00-0.03); Imm Gran Pct Auto 0.6 % (0.0-0.4); Lymphocytes Absolute Auto 1.9 X10*3/uL (1.2-4.9); Mean Corpuscular HGB Conc 33.3 g/dl (31.0-35.0); Mean Corpuscular Hemoglobin 30.4 pg (27.0-33.0); Mean Corpuscular Volume 91.4 fL (80.0-98.0); NRBC Abs Auto 0.000 X10*3/uL (0.0-0.012); NRBC Pct Auto 0.0 /100WBC (0.0-0.2); Platelet Count 335 X10*3/uL (160-400); Red Blood Count 4.44 X10*6/uL (4.20-5.50); White Blood Count 8.5 X10*3/uL (4.8-10.8)
[2025-01-28] MEDS: Lactated Ringers 1,000 ML 125 ML IVCONT (06:00)
[2025-01-28 06:23] LABS: Alanine Aminotransferase 1053 U/L (0-31); Albumin Level 3.6 g/dL (3.5-5.0); Alkaline Phosphatase 139 U/L (39-117); Anion Gap 12 (12-20); Aspartate Amino Transferase 696 U/L (5-31); Blood Urea Nitrogen 8 mg/dL (9-16); Calcium 8.4 mg/dL (8.4-10.2); Carbon Dioxide 24 mmol/L (22-29); Chloride 107 mmol/L (96-108); Cholesterol 184 mg/dL (<200); Creatinine Clr Calc Pharmacy 99.5; Estimated Glomerular Filt Rate > 60; HDL Cholesterol 57 mg/dL (>40); Magnesium 1.5 mg/dL (1.6-2.6); Potassium 3.6 mmol/L (3.3-5.1); Sodium 139 mmol/L (135-145); Total Protein 6.1 g/dL (6.5-8.0); Triglycerides 90 mg/dL (<150)
--- NOTE | 2025-01-28 07:24 | P.CNGI_ITS ---
History of Present Illness Data of Consult Service Date: 01/28/25 Requesting physician: Kelin Montejo Primary Care Provider: Teri Rodrigues MD HPI 44 YF with hyperlipidemia not currently on medications [place] [facility] [place] 01/27/25 complaining of epigastric pain that started at 01:00 on 01/27/25. Pain radiates to the back and intensity 6/10. She took Tums with minimal improvement. Pt went to work and pain intensified 30 minutes after eating soup at lunch time and noted that pain increases with deep inspiration. She also reported nausea and vomiting x1 and experienced some shortness on breath. She denied diarrhea or fever. Pt notes abd pain has improved after pain medications Pt reports past episodes of similar pain in the past which resolved with intake of Tums. She denied history of gallstones. Patient did not report any acute urinary symptoms. Pt gives a hx of smoking in the past and takes ETOH occasionally on weekends. She denies illicit drug use. Patient gives a history of occasional snoring and denies sleep apnea Family history significant for prostate cancer, father and colon cancer in a paternal uncle. In the ED, she was found to have stable vital signs. Labs showed leukocytosis of 14.0. Hemoglobin 15.5 and platelets 421. Total bilirubin is 3.5, direct bilirubin 2.1, AST 909, ALT 930 and alk-phos 130. Lipase is 26. test is negative. 01/27/[address] scan showed an elongated stone within the distal common bile duct measuring 17 mm in length and 4 mm in cross-sectional diameter. The common bile duct is borderline diameter. There are gallstones within the gallbladder which were not visible on the prior ultrasound Abdominal ultrasound showed no cholelithiasis or biliary dilatation with positive sonographic Cerda's signs. ED tx: NS 1 L bolus, morphine 4 mg IV, Zofran 4 mg IV Review of Systems 2 Review of Systems: Yes all other systems are reviewed and are negative [facility] Family History Family History Mother Diabetes Father Prostate cancer Paternal Uncle Colon cancer Surgical History Surgical History History of repair of ACL (07/20/23) Social History Social History (Reviewed 05/01/25 @ 09:15 by Loni Moss [facility] Household Members: Significant Other Household Members Other:: execise 3 x a week Housing: House Do you presently have visiting nurse or other home services: No Alcohol intake: current Alcohol intake frequency: a few times a week Alcohol type: other Comment: twisted teas Patient Tobacco Use Status: Former Tobacco user Smoked in Last 30 Days: No e-Cigarette/Vaping Use: Never Used Use of substances other than those prescribed or required for medical reasons: No Currently Displaying Signs/Symptoms of Drug Intoxication Withdrawal: No Have you been hit, kicked, punched, or otherwise hurt by someone within the past year? 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 [employer] Current occupational exposures/hazards: No Cognitive needs: No Hearing needs: No Vision needs: No Meds Allergies Allergy/AdvReac Type Severity Reaction Status Date / Time amoxicillin Allergy Mild Rash Verified 01/27/25 16:45 ivory soap Allergy Mild Rash Uncoded 01/27/25 16:45 Active Medications: Current Medications Hydromorphone HCl (Hydromorphone Hcl 0.5 Mg/0.5 Ml Syringe) 0.5 mg IVPUSH Q3H PRN; Protocol PRN Reason: Pain, Severe (Pain Scale 7-10) Metronidazole (Flagyl) 500 mg in 100 mls @ 100 mls/hr IV Q8H [facility] Last Infusion: 01/28/25 05:05 Dose: Infused Ciprofloxacin (Cipro) 400 mg in 200 mls @ 200 mls/hr IV Q12H [facility] Lactated Ringer's (Lr) 1,000 mls @ 125 mls/hr IVCONT .Q8H [facility] Stop: 01/28/25 13:59 Last Admin: 01/28/25 06:00 Dose: 125 mls/hr Melatonin (Melatonin 3 Mg Tablet) 6 mg PO BEDTIME PRN PRN Reason: Insomnia Last Admin: 01/27/25 22:24 Dose: 6 mg Prochlorperazine Edisylate (Prochlorperazine Edisylate 10 Mg/2 Ml Vial) 5 mg IVPUSH Q6H PRN PRN Reason: Nausea and Vomiting Sodium Chloride (0.9 % Sodium Chloride Flush 3 Ml Syringe) 3 ml IVFLUSH QSHIFT [facility] Last Admin: 01/28/25 00:24 Dose: Not Given Home Medications ?Medication ?Instructions ?Recorded ?Confirmed ?Last Taken ?Type cholecalciferol (vitamin D3) 50 50 mcg PO DAILY 01/27/25 01/27/25 History mcg (2,000 unit) capsule Physical Exam 2 Vital Signs: Vital Signs: Last Vital Signs Temp 98.0 F 01/28/25 07:22 Pulse 66 01/28/25 07:22 Resp 18 01/28/25 07:22 BP 135/79 01/28/25 07:22 Pulse Ox 94 01/28/25 07:22 O2 Del Method Room Air 01/28/25 07:22 BMI result Body Mass Index 33.5 Const: General: healthy appearing and no acute distress Nutritional Appearance: obese Orientation/consciousness: patient oriented x3 L imitations: no limitations HEENT: Head: Yes normal to inspection Ears: hearing grossly normal bilaterally Eyes: Sclerae: sclerae normal Pupils: Equal, round and reactive pupils present Neck: Neck: Yes normal visual inspection Chest: Chest palpation & inspection: normal inspection of the chest Resp: Effort & Inspection: normal respiratory effort Auscultation: clear to auscultation bilaterally Cardio: Palpation: normal PMI Rate: regular rate Rhythm: regular rhythm Heart sounds: S1 normal heart sound present, S2 normal heart sound present and no murmurs GI: Palpation (GI): Soft to palpation, nontender and No hepatosplenomegaly present Auscultation: normal bowel sounds Rectal Exam - Female: deferred Skin: General skin exam: no rashes or lesions noted Neuro: General: patient oriented x3, gait normal and moves all extremities Cranial nerves: Yes Equal, round and reactive pupils present Psych: Appearance: grossly normal Mental Status: mental status grossly normal Results Labs 01/28/25 05:10 01/28/25 05:10 Labs: Short CBC 01/27/25 01/28/25 Range/Units 16:59 05:10 WBC 14.0 H 8.5 (4.8-10.8) X10*3/uL Hgb 15.5 13.5 (12.0-16.0) g/dl Hct 45.9 40.6 (37.0-47.0) % Plt Count 421 H 335 (160-400) X10*3/uL BMP 01/27/25 01/28/25 16:59 05:10 Sodium 140 139 Potassium 4.1 3.6 Chloride 101 107 Carbon Dioxide 28 24 BUN 11 8 L Creatinine 0.76 0.70 Calcium 10.2 D 8.4 D Liver Function 01/27/25 01/28/25 Range/Units 16:59 05:10 Total Bilirubin 3.5 H 3.8 H (0.0-1.0) mg/dL Direct Bilirubin 2.1 H (0.0-0.5) mg/dL AST 909 H 696 H (5-31) U/L ALT 930 H 1053 H (0-31) U/L Alkaline Phosphatase 130 H 139 H (39-117) U/L Albumin 4.8 3.6 (3.5-5.0) g/dL Assessment and Plan (1) Choledocholithiasis: Status: Acute (2) Epigastric abdominal pain: Status: Acute Plan 44 YF with hyperlipidemia not currently on medications [place] [facility] [place] complaining of epigastric pain that started at 01:00 on 01/27/25. Pain radiates to the back and intensity 6/10. She took Tums with minimal improvement. In the ED, she was found to have stable vital signs. Labs showed leukocytosis of 14.0. Hemoglobin 15.5 and platelets 421. Total bilirubin is 3.5, direct bilirubin 2.1, AST 909, ALT 930 and alk-phos 130. Lipase is 26. test is negative. 01/27/[address] scan showed an elongated stone within the distal common bile duct measuring 17 mm in length and 4 mm in cross-sectional diameter. The common bile duct is borderline diameter. There are gallstones within the gallbladder which were not visible on the prior ultrasound RECOMMENDATIONS: 1. Agree with IV pain medications, antiemetics and antibiotics 2. Pt scheduled for an ERCP today with Dr De La Paz. ERCP procedure and potential complications were reviewed with the patient. 3. Lap Kavya after ERCP - pt would like to schedule during current hospitalization. Procedures Date of Service Date of Service: 01/28/25
--- NOTE | 2025-01-28 07:33 | P.PNIM_ITS ---
Subjective Subjective Date of Service: 01/28/25 Interval History: f/u choledocholithiasis has some pain, no fever Physical Exam 2 Vital Signs: Vital Signs: Last Vital Signs Temp 98.0 F 01/28/25 07:22 Pulse 66 01/28/25 07:22 Resp 18 01/28/25 07:22 BP 135/79 01/28/25 07:22 Pulse Ox 94 01/28/25 07:22 O2 Del Method Room Air 01/28/25 07:22 BMI result Body Mass Index 33.5 Const: Other: mild abd tenderness Objective Data Active Medications Hydromorphone HCl (Hydromorphone Hcl 0.5 Mg/0.5 Ml Syringe) 0.5 mg IVPUSH Q3H PRN; Protocol PRN Reason: Pain, Severe (Pain Scale 7-10) Metronidazole (Flagyl) 500 mg in 100 mls @ 100 mls/hr IV Q8H [facility] Last Infusion: 01/28/25 05:05 Dose: Infused Documented By: MADI Ciprofloxacin (Cipro) 400 mg in 200 mls @ 200 mls/hr IV Q12H [facility] Lactated Ringer's (Lr) 1,000 mls @ 125 mls/hr IVCONT .Q8H [facility] Stop: 01/28/25 13:59 Last Admin: 01/28/25 06:00 Dose: 125 mls/hr Documented By: MADI Melatonin (Melatonin 3 Mg Tablet) 6 mg PO BEDTIME PRN PRN Reason: Insomnia Last Admin: 01/27/25 22:24 Dose: 6 mg Documented By: SRAVAN Prochlorperazine Edisylate (Prochlorperazine Edisylate 10 Mg/2 Ml Vial) 5 mg IVPUSH Q6H PRN PRN Reason: Nausea and Vomiting Sodium Chloride (0.9 % Sodium Chloride Flush 3 Ml Syringe) 3 ml IVFLUSH QSHIFT [facility] Last Admin: 01/28/25 00:24 Dose: Not Given Documented By: MADI Non-Admin Reason: IV Running Labs 01/28/25 05:10 01/28/25 05:10 Labs: Laboratory Results - last 24 hr 01/27/25 01/27/25 01/28/25 16:59 20:33 05:10 MCV 91.6 91.4 MCH 30.9 30.4 MCHC 33.8 33.3 RDW 13.6 13.4 Plt Count 421 H 335 MPV 9.5 10.0 Immature Gran % (Auto) 0.6 H 0.6 H Neut % (Auto) 83.4 H 65.3 Lymph % (Auto) 8.9 L 22.3 [place] % (Auto) 6.3 9.3 Eos % (Auto) 0.4 1.9 Baso % (Auto) 0.4 0.6 Lymph # (Auto) 1.3 1.9 [place] # (Auto) 0.9 0.8 Eos # (Auto) 0.1 0.2 Baso # (Auto) 0.1 0.1 Abs Immat Gran (auto) 0.08 H 0.05 H Absolute Neuts (auto) 11.7 H 5.6 Absolute Nucleated RBC 0.000 0.000 Nucleated RBC % (auto) 0.0 0.0 PT 11.8 INR 1.0 Anion Gap 15 12 Estim Creat Clear Calc 91.1 99.5 Estimated GFR > 60 > 60 Random Glucose 112 95 Calcium 10.2 D 8.4 D Magnesium 1.8 1.5 L Total Bilirubin 3.5 H 3.8 H Direct Bilirubin 2.1 H AST 909 H 696 H ALT 930 H 1053 H Alkaline Phosphatase 130 H 139 H Troponin I High Sens < 2.7 Total Protein 8.1 H 6.1 L Albumin 4.8 3.6 Triglycerides 90 Cholesterol 184 LDL Cholesterol, Calc 109 H HDL Cholesterol 57 Lipase 26 TSH 1.73 Beta HCG, Quant < 2 Blood Type A Positive Antibody Screen NEGATIVE Assessment and Plan (1) Choledocholithiasis: Status: Acute Plan 44/F with HLD here with abd pain and found to hav distal CBC stone Choledocholithiasis. NPO. IV fluids. Empiric IV antibiotic therapy with Cipro and Flagyl (pt allegic to amoxicillin). GI and surgery consult. Continue to monitor LFTs and lipase. Ultimately will need CCY Hypercholesterolemia, profile good, no indication for meds, TSH normal at 1.73 Code status: Full DVT prophylaxis: SCDs (possible procedure in am). No acute medical issues and will transfer to surgery Quality Stroke Does the patient have a stroke diagnosis?: No VTE Prior VTE?: No VTE Risk Level:: Medical - moderate - high VTE Device Contraindication: N/A - Device Ordered VTE Drug Contraindication: Treatment Not Indicated
[2025-01-28] MEDS: 0.9 % Sodium Chloride Flush 3 ML SYRINGE IVFLUSH ×2 (07:48→16:55)
[2025-01-28 09:39] LABS: Reflex LDLD? No
[2025-01-28] MEDS: Lactated Ringers 1,000 ML 80 ML IVCONT ×2 (12:58→21:30)
--- NOTE | 2025-01-28 13:49 | MHC.CM.PN ---
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
--- NOTE | 2025-01-28 14:59 | W.PM.OPN ---
Operative Note Operative Note Date of Service: 01/28/25 Narrative: Description:?Endoscopic retrograde cholangiopancreatography (ERCP) PROCEDURE:? 1/Endoscopic retrograde cholangiopancreatography with sphincterotomy, balloon extraction and intraop cholangiogram with interpretation 2/ Upper endoscopy with pyloric dilation INDICATION FOR THE PROCEDURE:?Patient with a history of choledocholithiasis and abn LFT with abdominal pain. MEDICATIONS:?General anesthesia. The risks of the procedure were made aware to the patient and consisted of medication reaction, bleeding, perforation, aspiration, and post ERCP pancreatitis. DESCRIPTION OF PROCEDURE:?After informed consent and appropriate sedation, the duodenoscope was inserted into the oropharynx, down the esophagus, and into the stomach. I was unable to advance beyond the pylorus despite angling the scope as the pyloric sphincter was tight. An upper endoscope was then used and a stepwise balloon dilation of the pyloric outlet was performed from 18-20 mm. The ERCP scope was then advanced through the pylorus to the ampulla with ease. A stone was noted right at the ampullary orifice. This was pushed out using the scope tip. The CBD was then selectively cannulated with wire guided approach and a cholangiogram was obtained. The cholangiogram was formally interpreted and documented, and confirmed placement with filling defects noted in mid and distal CBD with a dilated duct to about 10 mm A sphincterotomy was performed to facilitate stone removal, ductal clearance and enlarge the orifice beyond standard cannulation which was approximately 10-11 mm. After this a extraction balloon was used to extract sludge and samll amounts of stone debris material. Completion balloon occluded cholangiography demonstrated no filling defects. The gallbladder also easily filled with contrast. There was good biliary drainage noted. The procedure was then terminated. Intraop cholangiogram reivew and interpretation by performing physician: Dilated CBD with filling defects in mid CBD consistent with choledocholithiasis. CBD measured about 10 mm. No stricture or leak seen. The gallbladder filled easily with contrast. FINDINGS: 1. Pyloric outlet spasm, s/p dilation 2. Choledocholithiasis s/p sphinterotomy RECOMMENDATIONS: 1. clears today and advance diet tomorrow as tolerated unless plans for surgery
[2025-01-29 03:13] VITALS: BP 138/77; PULSE 71; RESP 16; TEMP 36.7; O2SAT 96
[2025-01-29] MEDS: metroNIDAZOLE/NS 500 MG/100 ML PIGGYBACK 100 MG IV ×3 (03:37→19:45)
--- NOTE | 2025-01-29 04:52 | PC.NURSE ---
Pt seen ambulating around room when first encountered, denies any discomforts and pain, tolerating IVF, maintained on clear liquid diet.
[2025-01-29 07:38] VITALS: BP 140/79; PULSE 73; RESP 16; TEMP 36.4; O2SAT 96
[2025-01-29 07:51] LABS: Alanine Aminotransferase 723 U/L (0-31); Albumin Level 3.7 g/dL (3.5-5.0); Alkaline Phosphatase 141 U/L (39-117); Aspartate Amino Transferase 183 U/L (5-31); Total Protein 6.4 g/dL (6.5-8.0)
--- NOTE | 2025-01-29 08:13 | HO.POSTANES ---
Post Anesthesia Evaluation Post Anesthesia Evaluation Date of Service: 01/29/25 Vital Signs: Vital Signs Temp Pulse Resp BP Pulse Ox O2 Del Method 01/29/25 07:38 97.6 F 73 16 140/79 H 96 Room Air 01/29/25 03:13 98.0 F 71 16 138/77 96 Room Air Anesthesia: General Mental Status: Awake Pain Control: Satisfactory Nausea/Vomiting: None Hydration: Adequate Anesthesia-Related Issues: No Anes. Related Issues
--- NOTE | 2025-01-29 08:18 | PM.PNGS ---
Subjective Subjective Date of Service: 01/29/25 <Shari Neri PA-C - Last Filed: 01/29/25 08:23> 01/29/25 <John Chavez MD - Last Filed: 01/29/25 13:21> Interval history: Had ERCP yesterday. Feels significantly improved this morning and denies any abdominal pain. Would like to have cholecystectomy during this stay. <Shari Neri PA-C - Last Filed: 01/29/25 08:23> Physical Exam Vital Signs: Vital Signs: Last Vital Signs Temp 97.6 F 01/29/25 07:38 Pulse 73 01/29/25 07:38 Resp 16 01/29/25 07:38 BP 140/79 H 01/29/25 07:38 Pulse Ox 96 01/29/25 07:38 O2 Del Method Room Air 01/29/25 07:38 O2 Flow Rate 2 01/28/25 15:49 BMI result Body Mass Index 33.5 <Shari Neri PA-C - Last Filed: 01/29/25 08:23> Const: General: comfortable, no acute distress and alert <Shari Neri PA-C - Last Filed: 01/29/25 08:23> Orientation/consciousness: patient oriented x3 <Shari Neri PA-C - Last Filed: 01/29/25 08:23> Resp: Effort & Inspection: normal respiratory effort, able to speak in complete sentences and not tachypneic <Shari Neri PA-C - Last Filed: 01/29/25 08:23> GI: Other: soft, nontender, nondistended <Shari Neri PA-C - Last Filed: 01/29/25 08:23> Inspection: Yes normal to inspection <ERNESTO Manley Last Filed: 01/29/25 08:23> Palpation (GI): no guarding <ERNESTO Manley Last Filed: 01/29/25 08:23> Percussion: Yes normal to percussion <Shari Neri PA-C - Last Filed: 01/29/25 08:23> Skin: General skin exam: no rashes or lesions noted <Shari Neri PA-C - Last Filed: 01/29/25 08:23> Neuro: General: patient oriented x3 and moves all extremities <Shari Neri PA-C - Last Filed: 01/29/25 08:23> Objective Data Active Medications Hydromorphone HCl (Hydromorphone Hcl 0.5 Mg/0.5 Ml Syringe) 0.5 mg IVPUSH Q3H PRN; Protocol PRN Reason: Pain, Severe (Pain Scale 7-10) Last Admin: 01/28/25 07:47 Dose: 0.5 mg Documented By: SHAYNE Metronidazole (Flagyl) 500 mg in 100 mls @ 100 mls/hr IV Q8H [facility] Last Infusion: 01/29/25 04:42 Dose: Infused Documented By: MARTA Ciprofloxacin (Cipro) 400 mg in 200 mls @ 200 mls/hr IV Q12H [facility] Last Admin: 01/29/25 08:05 Dose: 200 mls/hr Documented By: SHAYNE Lactated Ringer's (Lr) 1,000 mls @ 80 mls/hr IVCONT .[id number] [facility] Last Admin: 01/28/25 21:30 Dose: 80 mls/hr Documented By: KATIERISJeanine Melatonin (Melatonin 3 Mg Tablet) 6 mg PO BEDTIME PRN PRN Reason: Insomnia Last Admin: 01/27/25 22:24 Dose: 6 mg Documented By: DEJANQC Prochlorperazine Edisylate (Prochlorperazine Edisylate 10 Mg/2 Ml Vial) 5 mg IVPUSH Q6H PRN PRN Reason: Nausea and Vomiting Sodium Chloride (0.9 % Sodium Chloride Flush 3 Ml Syringe) 3 ml IVFLUSH QSHIFT [facility] Last Admin: 01/29/25 08:09 Dose: Not Given Documented By: SHAYNE Non-Admin Reason: IV Running <Shari Neri PA-C - Last Filed: 01/29/25 08:23> Labs CBC & Chem 7: 01/28/25 05:10 01/28/25 05:10 <ERNESTO Manley Last Filed: 01/29/25 08:23> Labs: Laboratory Results - last 24 hr 01/29/25 06:49 Hold Purple Top SEE NOTE Total Bilirubin 1.1 H Direct Bilirubin 0.5 AST 183 H ALT 723 H Alkaline Phosphatase 141 H Total Protein 6.4 L Albumin 3.7 <Shari Neri PA-C - Last Filed: 01/29/25 08:23> Procedures Date of Service Date of Service: 01/29/25 <Shari Neri PA-C - Last Filed: 01/29/25 08:23> 01/29/25 <John Chavez MD - Last Filed: 01/29/25 13:21> Progress Note: A&P Assessment and plan (1) Choledocholithiasis: Status: Acute <Shari Neri PA-C - Last Filed: 01/29/25 08:23> Assessment and Plan: Patient feels well this morning Denies any abdominal pain LFTs now near normal I had added the patient on the schedule for laparoscopic cholecystectomy today However, in view of emergency laparotomy, I explained to the patient that we would be unable to do the case promptly Dr. Valladares talked to her about doing the lap tosha tomorrow instead says she does not have to stay NPO all day She had agreed with Dr. Valladares She looks well and comfortable overall <John Chavez MD - Last Filed: 01/29/25 13:21> Assessment and Plan: S/p ERCP with sphincterotomy, balloon extraction and intraop cholangiogram. Feels improved this morning with no abd pain. Abdomen benign and soft, nontender. Hemodynamically stable. LFTs significantly improved and bili down to 1.1. She would like to proceed with laparoscopic cholecystectomy possible open today. Will try to accomodate her and get her on the schedule for today. If unable to, will discuss with software quality automation engineer surgeon about doing it over the weekend as she strongly prefers to get it done during this stay and not on outpatient basis. <Shari Neri PA-C - Last Filed: 01/29/25 08:23> Time Spent With Patient Time: Total time managing care of this patient today ____ minutes. <Shari Neri PA-C - Last Filed: 01/29/25 08:23> Quality Stroke Does the patient have a stroke diagnosis?: No <Shari Neri PA-C - Last Filed: 01/29/25 08:23> VTE Prior VTE?: No <Shari Neri PA-C - Last Filed: 01/29/25 08:23> VTE Risk Level:: Medical - moderate - high <Shari Neri PA-C - Last Filed: 01/29/25 08:23> VTE Device Contraindication: N/A - Device Ordered <Shari Neri PA-C - Last Filed: 01/29/25 08:23> VTE Drug Contraindication: Treatment Not Indicated <Shari Neri PA-C - Last Filed: 01/29/25 08:23>
--- NOTE | 2025-01-29 09:18 | P.PNIM_ITS ---
Subjective Subjective Date of Service: 01/29/25 Interval History: f/u choledocholithiasis s/p ERCP found to have 1. Pyloric outlet spasm, s/p dilation 2. Choledocholithiasis s/p sphinterotomy Has no pain, LFTs trending Physical Exam 2 Vital Signs: Vital Signs: Last Vital Signs Temp 97.6 F 01/29/25 07:38 Pulse 73 01/29/25 07:38 Resp 16 01/29/25 07:38 BP 140/79 H 01/29/25 07:38 Pulse Ox 96 01/29/25 07:38 O2 Del Method Room Air 01/29/25 07:38 O2 Flow Rate 2 01/28/25 15:49 BMI result Body Mass Index 33.5 Const: Other: Abd: No tenderness Objective Data Active Medications Hydromorphone HCl (Hydromorphone Hcl 0.5 Mg/0.5 Ml Syringe) 0.5 mg IVPUSH Q3H PRN; Protocol PRN Reason: Pain, Severe (Pain Scale 7-10) Last Admin: 01/28/25 07:47 Dose: 0.5 mg Documented By: SHAYNE Metronidazole (Flagyl) 500 mg in 100 mls @ 100 mls/hr IV Q8H [facility] Last Infusion: 01/29/25 04:42 Dose: Infused Documented By: JUAN DIEGOILJeanine Ciprofloxacin (Cipro) 400 mg in 200 mls @ 200 mls/hr IV Q12H [facility] Last Admin: 01/29/25 08:05 Dose: 200 mls/hr Documented By: SHAYNE Lactated Ringer's (Lr) 1,000 mls @ 80 mls/hr IVCONT .[id number] [facility] Last Admin: 01/28/25 21:30 Dose: 80 mls/hr Documented By: ODRISJeanine Melatonin (Melatonin 3 Mg Tablet) 6 mg PO BEDTIME PRN PRN Reason: Insomnia Last Admin: 01/27/25 22:24 Dose: 6 mg Documented By: SRAVAN Prochlorperazine Edisylate (Prochlorperazine Edisylate 10 Mg/2 Ml Vial) 5 mg IVPUSH Q6H PRN PRN Reason: Nausea and Vomiting Sodium Chloride (0.9 % Sodium Chloride Flush 3 Ml Syringe) 3 ml IVFLUSH QSHIFT [facility] Last Admin: 01/29/25 08:09 Dose: Not Given Documented By: SHAYNE Non-Admin Reason: IV Running Labs 01/28/25 05:10 01/28/25 05:10 Labs: Laboratory Results - last 24 hr 01/29/25 06:49 Hold Purple Top SEE NOTE Total Bilirubin 1.1 H Direct Bilirubin 0.5 AST 183 H ALT 723 H Alkaline Phosphatase 141 H Total Protein 6.4 L Albumin 3.7 Assessment and Plan (1) Choledocholithiasis: Status: Acute Plan 44/F with HLD here with abd pain and found to hav distal CBC stone Choledocholithiasis s/p ERCP on 01/28/25 with the following 1. Pyloric outlet spasm, s/p dilation 2. Choledocholithiasis s/p sphinterotomy No pain. For CCY today LFTs are going down Hypercholesterolemia, profile good, no indication for meds, TSH normal at 1.73 Code status: Full DVT prophylaxis: SCDs (possible procedure in am). No acute medical issues and will transfer to surgery Quality Stroke Does the patient have a stroke diagnosis?: No VTE Prior VTE?: No VTE Risk Level:: Medical - moderate - high VTE Device Contraindication: N/A - Device Ordered VTE Drug Contraindication: Treatment Not Indicated
[2025-01-29 09:59] VITALS: BP 143/86; PULSE 82; RESP 18; TEMP 36.7; O2SAT 96
--- NOTE | 2025-01-29 13:43 | PC.NURSE ---
Dr. Hopper updated patient that her procedure will be tomorrow morning. Patient agrees to the plan. Returned to her room on the floor at this time.
--- NOTE | 2025-01-29 14:37 | MHC.CM.PN ---
Patient s/p ERCP yesterday. Discharge is anticipated tomorrow. DP home self care. She will arrange for transportation home.
[2025-01-29] MEDS: Lactated Ringers 1,000 ML 80 ML IVCONT ×2 (15:07→19:20)
[2025-01-29 19:21] VITALS: BP 136/65; PULSE 97; RESP 18; TEMP 36.6; O2SAT 96
[2025-01-30] VITALS (11 sets, daily range): BP systolic 121–155; BP diastolic 69–99; PULSE 74–93; RESP 16–19; TEMP 36.3–36.9; O2SAT 95–98
[2025-01-30] MEDS: metroNIDAZOLE/NS 500 MG/100 ML PIGGYBACK 100 MG IV ×2 (03:57→11:37)
--- NOTE | 2025-01-30 06:33 | PC.NURSE ---
Pt seen on bed alert and oriented, denies any pain, for Surgery in AM, NPO post MN instructed,IVF maintained.
--- NOTE | 2025-01-30 08:30 | PC.NURSE ---
Report called to [facility] .
--- NOTE | 2025-01-30 08:34 | HO.ANESPROP2 ---
HPI - Anesthesia Eval Consult details Narrative: for Lap. Cholecystectomy PMFSH Active Problems Active Problems: All Active Problems Choledocholithiasis (Acute) Epigastric abdominal pain (Acute) Hx of colonoscopy (Acute) Lateral meniscal tear (Acute) ACL tear (Acute) Normal gynecologic examination (Acute) Hyperlipidemia (Acute) Rectal bleeding (Acute) Medial meniscus tear (Acute) History of colposcopy (Acute) HPV (human papilloma virus) infection (Acute) Annual physical exam (Acute) Sprain of left knee (Acute) Sprain of right knee (Acute) Past Medical History Medical History (Updated 01/29/25 @ 10:06 by Vivien Grace RN) Cholelithiasis Patient : No Family History Family History Mother Diabetes Father Prostate cancer Paternal Uncle Colon cancer Family history of problems with anesthesia: No Surgical History Surgical History (Updated 01/29/25 @ 10:07 by Vivien Grace RN) History of colposcopy Hx of colonoscopy History of repair of ACL (07/20/23) History of Problems with Anesthesia: No Social History Social History Household Members: Significant Other Household Members Other:: execise 3 x a week Housing: House Do you presently have visiting nurse or other home services: No Alcohol intake: current Alcohol intake frequency: holidays/special occasions only Alcohol type: other Comment: twisted teas Patient Tobacco Use Status: Former Tobacco user Smoked in Last 30 Days: No e-Cigarette/Vaping Use: Never Used Use of substances other than those prescribed or required for medical reasons: Yes Substance Use Type Other:: gummies Currently Displaying Signs/Symptoms of Drug Intoxication Withdrawal: No Have you been hit, kicked, punched, or otherwise hurt by someone within the past year? If so, by whom?: No Do you feel safe in your current relationship?: Yes Is there a partner from a previous relationship who is making you feel unsafe now?: No Are you made to feel afraid or neglected: No Are you DNR?: No Advance Directives: No Advance Directives Information Provided: No Do you have a plan to hurt others: No Plan Recently lost weight without trying: No How much weight loss: Not applicable Eating poorly because of decreased appetite: No Nutrition screen score: 0 Nutrition Risks: No Nutritional Risk Patient : No : No Poor oral hygiene: No service: No Current occupational status: employed 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 [employer] Current occupational exposures/hazards: No Cognitive needs: No Hearing needs: No Vision needs: No Meds Allergies Allergy/AdvReac Type Severity Reaction Status Date / Time amoxicillin Allergy Mild Rash Verified 01/29/25 10:05 ivory soap Allergy Mild Rash Uncoded 01/29/25 10:05 Active Medications: Current Medications Hydromorphone HCl (Hydromorphone Hcl 0.5 Mg/0.5 Ml Syringe) 0.5 mg IVPUSH Q3H PRN; Protocol PRN Reason: Pain, Severe (Pain Scale 7-10) Last Admin: 01/28/25 07:47 Dose: 0.5 mg Metronidazole (Flagyl) 500 mg in 100 mls @ 100 mls/hr IV Q8H [facility] Last Infusion: 01/30/25 05:09 Dose: Infused Ciprofloxacin (Cipro) 400 mg in 200 mls @ 200 mls/hr IV Q12H [facility] Last Admin: 01/30/25 08:01 Dose: 200 mls/hr Lactated Ringer's (Lr) 1,000 mls @ 80 mls/hr IVCONT .[id number] [facility] Last Admin: 01/29/25 19:20 Dose: 80 mls/hr Melatonin (Melatonin 3 Mg Tablet) 6 mg PO BEDTIME PRN PRN Reason: Insomnia Last Admin: 01/27/25 22:24 Dose: 6 mg Prochlorperazine Edisylate (Prochlorperazine Edisylate 10 Mg/2 Ml Vial) 5 mg IVPUSH Q6H PRN PRN Reason: Nausea and Vomiting Sodium Chloride (0.9 % Sodium Chloride Flush 3 Ml Syringe) 3 ml IVFLUSH QSHIFT [facility] Last Admin: 01/30/25 07:52 Dose: Not Given Home Medications ?Medication ?Instructions ?Recorded ?Confirmed ?Last Taken ?Type cholecalciferol (vitamin D3) 50 50 mcg PO DAILY 01/27/25 01/27/25 01/27/25 History mcg (2,000 unit) capsule Exam Height,Weight and Vital Signs: Height 5 ft 1 in Weight 80.4 kg Last Vital Signs Temp 98.5 F 01/30/25 07:48 Pulse 93 11/15/25 07:48 Resp 18 01/30/25 07:48 BP 136/69 01/30/25 07:48 Pulse Ox 96 01/30/25 07:48 O2 Del Method Room Air 01/30/25 07:48 O2 Flow Rate 2 01/28/25 15:49 Pertinent Lab Results Pertinent Lab Results: Laboratory Tests 01/27/25 01/27/25 01/28/25 16:59 20:33 05:10 WBC 14.0 H 8.5 RBC 5.01 4.44 Hgb 15.5 13.5 Hct 45.9 40.6 MCV 91.6 91.4 MCH 30.9 30.4 MCHC 33.8 33.3 RDW 13.6 13.4 Plt Count 421 H 335 MPV 9.5 10.0 Immature Gran % (Auto) 0.6 H 0.6 H Neut % (Auto) 83.4 H 65.3 Lymph % (Auto) 8.9 L 22.3 Mckean % (Auto) 6.3 9.3 Eos % (Auto) 0.4 1.9 Baso % (Auto) 0.4 0.6 Lymph # (Auto) 1.3 1.9 Mckean # (Auto) 0.9 0.8 Eos # (Auto) 0.1 0.2 Baso # (Auto) 0.1 0.1 Abs Immat Gran (auto) 0.08 H 0.05 H Absolute Neuts (auto) 11.7 H 5.6 Absolute Nucleated RBC 0.000 0.000 Nucleated RBC % (auto) 0.0 0.0 Hold Purple Top PT 11.8 INR 1.0 Sodium 140 139 Potassium 4.1 3.6 Chloride 101 107 Carbon Dioxide 28 24 Anion Gap 15 12 BUN 11 8 L Creatinine 0.76 0.70 Estim Creat Clear Calc 91.1 99.5 Estimated GFR > 60 > 60 Random Glucose 112 95 Calcium 10.2 D 8.4 D Magnesium 1.8 1.5 L Total Bilirubin 3.5 H 3.8 H Direct Bilirubin 2.1 H AST 909 H 696 H ALT 930 H 1053 H Alkaline Phosphatase 130 H 139 H Troponin I High Sens < 2.7 Total Protein 8.1 H 6.1 L Albumin 4.8 3.6 Triglycerides 90 Cholesterol 184 LDL Cholesterol, Calc 109 H HDL Cholesterol 57 Lipase 26 TSH 1.73 Beta HCG, Quant < 2 Blood Type A Positive Antibody Screen NEGATIVE 01/29/25 06:49 WBC RBC Hgb Hct MCV MCH MCHC RDW Plt Count MPV Immature Gran % (Auto) Neut % (Auto) Lymph % (Auto) Mckean % (Auto) Eos % (Auto) Baso % (Auto) Lymph # (Auto) Mckean # (Auto) Eos # (Auto) Baso # (Auto) Abs Immat Gran (auto) Absolute Neuts (auto) Absolute Nucleated RBC Nucleated RBC % (auto) Hold Purple Top SEE NOTE PT INR Sodium Potassium Chloride Carbon Dioxide Anion Gap BUN Creatinine Estim Creat Clear Calc Estimated GFR Random Glucose Calcium Magnesium Total Bilirubin 1.1 H Direct Bilirubin 0.5 AST 183 H ALT 723 H Alkaline Phosphatase 141 H Troponin I High Sens Total Protein 6.4 L Albumin 3.7 Triglycerides Cholesterol LDL Cholesterol, Calc HDL Cholesterol Lipase TSH Beta HCG, Quant Blood Type Antibody Screen Airway Mallampati Class: II TM Dist: <=3cm Neck ROM: Full Loose/Missing/Broken Teeth: No Heart: ok Lungs: ok Assessment and Plan Assessment Anesthesia Assessment: Anesthesia Plan Discussed and Chart Reviewed Final Anesthetic Review Family History of Problems with Anesthesia: No History of Problems with Anesthesia: No NPO: Yes ASA Class: II Final Preanesthetic Review: No Changes in Pt Med Stat, Meds/Allgs Chart Reviewed, Consent Obtained/Reviewed and Anes Risks/Benef Reviewed Patient Risk: Intermediate Procedure Risk: Intermediate Anesthetic Plan Anesthetic Plan: GA and Agree w/ Assess. and Plan Disposition: Standard PACU
--- NOTE | 2025-01-30 08:42 | HO.PM.IMPN ---
Subjective Subjective Date of Service: 01/30/25 Interval History: f/u choledocholithiasis s/p ERCP found to have 1. Pyloric outlet spasm, s/p dilation 2. Choledocholithiasis s/p sphinterotomy No pain. Surgery was deffered yesterday, rescheduled for today Physical Exam Vital Signs: Vital Signs: Last Vital Signs Temp 98.5 F 01/30/25 07:48 Pulse 93 01/30/25 07:48 Resp 18 01/30/25 07:48 BP 136/69 01/30/25 07:48 Pulse Ox 96 01/30/25 07:48 O2 Del Method Room Air 01/30/25 07:48 O2 Flow Rate 2 01/28/25 15:49 BMI result Body Mass Index 33.5 Objective Data Active Medications Hydromorphone HCl (Hydromorphone Hcl 0.5 Mg/0.5 Ml Syringe) 0.5 mg IVPUSH Q3H PRN; Protocol PRN Reason: Pain, Severe (Pain Scale 7-10) Last Admin: 01/28/25 07:47 Dose: 0.5 mg Documented By: SHAYNE Metronidazole (Flagyl) 500 mg in 100 mls @ 100 mls/hr IV Q8H [facility] Last Infusion: 01/30/25 05:09 Dose: Infused Documented By: MARTA Ciprofloxacin (Cipro) 400 mg in 200 mls @ 200 mls/hr IV Q12H [facility] Last Admin: 01/30/25 08:01 Dose: 200 mls/hr Documented By: CLIVE Lactated Ringer's (Lr) 1,000 mls @ 80 mls/hr IVCONT .[id number] [facility] Last Admin: 01/29/25 19:20 Dose: 80 mls/hr Documented By: MARTA Melatonin (Melatonin 3 Mg Tablet) 6 mg PO BEDTIME PRN PRN Reason: Insomnia Last Admin: 01/27/25 22:24 Dose: 6 mg Documented By: SRAVAN Prochlorperazine Edisylate (Prochlorperazine Edisylate 10 Mg/2 Ml Vial) 5 mg IVPUSH Q6H PRN PRN Reason: Nausea and Vomiting Sodium Chloride (0.9 % Sodium Chloride Flush 3 Ml Syringe) 3 ml IVFLUSH QSHIFT [facility] Last Admin: 01/30/25 07:52 Dose: Not Given Documented By: CLIVE Non-Admin Reason: IV Running Labs 01/28/25 05:10 01/28/25 05:10 Labs: Laboratory Results - last 24 hr 01/29/25 06:49 Hold Purple Top SEE NOTE Total Bilirubin 1.1 H Direct Bilirubin 0.5 AST 183 H ALT 723 H Alkaline Phosphatase 141 H Total Protein 6.4 L Albumin 3.7 Assessment and Plan (1) Choledocholithiasis: Status: Acute Plan 44/F with HLD here with abd pain and found to hav distal CBC stone Choledocholithiasis s/p ERCP on 01/28/25 with the following 1. Pyloric outlet spasm, s/p dilation 2. Choledocholithiasis s/p sphinterotomy No pain. For CCY today LFTs are going down Hypercholesterolemia, profile good, no indication for meds, TSH normal at 1.73 Code status: Full DVT prophylaxis: SCDs (possible procedure in am). No acute medical issues and transfered to surgery [facility], discussed with Dr. Chavez and Wood Villanueva and they agree Quality Stroke Does the patient have a stroke diagnosis?: No VTE Prior VTE?: No VTE Risk Level:: Medical - moderate - high VTE Device Contraindication: N/A - Device Ordered VTE Drug Contraindication: Treatment Not Indicated
--- NOTE | 2025-01-30 08:54 | PM.PNGS ---
Subjective Subjective Date of Service: 01/30/25 Interval history: pt doing well Physical Exam Vital Signs: Vital Signs: Last Vital Signs Temp 98.5 F 01/30/25 07:48 Pulse 93 01/30/25 07:48 Resp 18 01/30/25 07:48 BP 136/69 01/30/25 07:48 Pulse Ox 96 01/30/25 07:48 O2 Del Method Room Air 01/30/25 07:48 O2 Flow Rate 2 01/28/25 15:49 BMI result Body Mass Index 33.5 Resp: Effort & Inspection: normal respiratory effort Cardio: Rate: regular rate Objective Data Active Medications Hydromorphone HCl (Hydromorphone Hcl 0.5 Mg/0.5 Ml Syringe) 0.5 mg IVPUSH Q3H PRN; Protocol PRN Reason: Pain, Severe (Pain Scale 7-10) Last Admin: 01/28/25 07:47 Dose: 0.5 mg Documented By: SHAYNE Metronidazole (Flagyl) 500 mg in 100 mls @ 100 mls/hr IV Q8H [facility] Last Infusion: 01/30/25 05:09 Dose: Infused Documented By: MARTA Ciprofloxacin (Cipro) 400 mg in 200 mls @ 200 mls/hr IV Q12H [facility] Last Admin: 01/30/25 08:01 Dose: 200 mls/hr Documented By: CLIVE Lactated Ringer's (Lr) 1,000 mls @ 80 mls/hr IVCONT .[id number] [facility] Last Admin: 01/29/25 19:20 Dose: 80 mls/hr Documented By: MARTA Melatonin (Melatonin 3 Mg Tablet) 6 mg PO BEDTIME PRN PRN Reason: Insomnia Last Admin: 01/27/25 22:24 Dose: 6 mg Documented By: SRAVAN Prochlorperazine Edisylate (Prochlorperazine Edisylate 10 Mg/2 Ml Vial) 5 mg IVPUSH Q6H PRN PRN Reason: Nausea and Vomiting Sodium Chloride (0.9 % Sodium Chloride Flush 3 Ml Syringe) 3 ml IVFLUSH QSHIFT [facility] Last Admin: 01/30/25 07:52 Dose: Not Given Documented By: CLIVE Non-Admin Reason: IV Running Labs 01/28/25 05:10 01/28/25 05:10 Procedures Date of Service Date of Service: 01/30/25 Progress Note: A&P Assessment and plan (1) Choledocholithiasis: Status: Acute Plan for lap tosha Time Spent With Patient Time: Total time managing care of this patient today ____ minutes. Quality Stroke Does the patient have a stroke diagnosis?: No VTE Prior VTE?: No VTE Risk Level:: Medical - moderate - high VTE Device Contraindication: N/A - Device Ordered VTE Drug Contraindication: Treatment Not Indicated
--- NOTE | 2025-01-30 10:52 | P.OP_ITS ---
Operative Note Operative Note Date of Service: 01/30/25 Narrative: Preop diagnosis--choledocholithiasis and cholelithiasis Postop diagnosis--choledocholithiasis and cholelithiasis Procedure-laparoscopic cholecystectomy Surgeon--Jacquelyn Anesthesia--general endotracheal tube anesthesia The patient is a 44-year-old female who presented with the abdominal pain and elevated LFTs. Common bile duct was distended and was question of common bile duct stones. She underwent ERCP with sphincterotomy and removal of stones. She comes in now for laparoscopic cholecystectomy for cholelithiasis as being the cause for the choledocholithiasis. Findings--small retracted gallbladder with stones Procedure-- Patient was brought to the operative room under anesthesia guidance was intubated. She had compression stockings placed before induction received preoperative antibiotics. Her abdomen was prepped and draped in standard surgical fashion. An infraumbilical incision was created after numbing up the area with a 0.25% Marcaine with epinephrine. Dissection was carried down to the anterior abdominal wall fascia which was grasped with Oniel's and transected. 0 Vicryl pursestring suture placed. Patient was positioned head up left side down in 3 5 mm ports were then placed 1 in the epigastric area into in the right upper quadrant area. The gallbladder was identified in the right upper quadrant and was little small and contracted. This was grasped and retracted superiorly and laterally. The cystic duct seemed a little bit lower down so the gallbladder was mobilized little bit laterally and medially so as to come across the anatomy inferiorly. The cystic duct area was now dissected out and a small branch of the cystic artery was identified behind it. Critical view was noted. The cystic duct was clipped 3 times down and 1 up and transected and the cystic artery clipped as well. The area was examined and there may have been a small branch of the cystic artery going parallel to the cystic duct there was also in that clip. The gallbladder was now removed off the liver bed with the hook cautery and some bleeding on the liver bed was cauterized. It was placed in endobag and removed from the infraumbilical port site. Pneumoperitoneum was then reestablished and the area was irrigated and suctioned. Cystic duct stump area looked good with clips intact as well as the cystic artery area. Ports were then removed under direct visualization. The infraumbilical port site was closed with approximation of the pursestring suture and more local was used at the port sites. 4-0 Monocryl was then used to close skin incision sites and Steri-Strips and Tegaderm dressings with gauze placed. At the end of the case all sponge instrument needle counts were correct. Estimated blood loss was about 10 cc. Specimens sent was the gallbladder. Patient was extubated r eturned stable to recovery room
[2025-01-30] MEDS: Lactated Ringers 1,000 ML 80 ML IVCONT (11:37)
[2025-01-30] MEDS: 0.9 % Sodium Chloride Flush 3 ML SYRINGE IVFLUSH (20:01)
[2025-01-31 04:00] VITALS: BP 137/75; PULSE 97; RESP 18; TEMP 36.6; O2SAT 93
--- NOTE | 2025-01-31 07:02 | PC.NURSE ---
Pt seen on bed alert and oriented, abd pain tolerable, ice packs applied on abd surgical sites, dressing all 4 sites CDI, slept fairly, voided in the BR .
[2025-01-31] MEDS: 0.9 % Sodium Chloride Flush 3 ML SYRINGE IVFLUSH (07:27)
[2025-01-31 07:42] VITALS: BP 138/87; PULSE 86; RESP 18; TEMP 36.3; O2SAT 96
--- NOTE | 2025-01-31 13:08 | P.DS_ITS ---
DS: Providers Provider Date of Service: 01/31/25 Date of admission: 01/27/25 20:29 Date of discharge: 01/31/25 Primary care physician: Teri Rodrigues MD Consults: 01/27/25 20:32 Consult to Gastroenterology Routine Consulting Provider: [facility] Gastroenterology Services Reason for consultation: choledocolithiasis Has provider been notified: No Consult to General Surgery Routine Consulting Provider: [facility] General Surgeons Reason for consultation: choledocolithiaisis Has provider been notified: Yes Attending physician on discharge: Lillian Valladares DS: Diagnosis Discharge Diagnosis (1) Choledocholithiasis: Status: Acute DS: Summary Hospital Course Hospital Course: 44-year-old female who presented to the hospital with the abdominal pain and bita vated LFTs with a distended dilated common bile duct. She underwent ERCP with sphincterotomy and removal of stones. She then underwent laparoscopic cholecystectomy and has done well from that. Plan to discharge her with follow up with the General Surgical team. Status at Discharge Cognitive/behavioral status at discharge: good Functional status at discharge: independent ambulation Overall status at discharge: patient is progressing back to baseline Time Attestation Total time managing care of this patient today: 25 mintues. Discharge Coordination Time (in mins): 25 Quality: Safe Use of Opioids Does Pt have an Active Cancer Diagnosis on the Problem List?: No Quality: Stroke Does the patient have a stroke diagnosis?: No Physical Exam Vital Signs: Vital Signs: Last Vital Signs Temp 97.4 F 01/31/25 07:42 Pulse 86 01/31/25 07:42 Resp 18 01/31/25 07:42 BP 138/87 01/31/25 07:42 Pulse Ox 96 01/31/25 07:42 O2 Del Method Room Air 01/31/25 07:42 O2 Flow Rate 2 01/28/25 15:49 BMI result Body Mass Index 33.5 Const: General: cooperative, healthy appearing, comfortable and no acute distress GI: Other: Soft nontender nondistended Psych: Appearance: grossly normal Mental Status: mental status grossly normal Speech and movement: Normal speech and movement present Affect: normal affect DS: Data Data Completed and Pending Pending studies at discharge: Pending at discharge 01/30/25 10:17 Surgical [PTH] Routine Discharge Plan Discharge Anticipated Discharge Date/Time: 01/31/25 13:06 Patient Disposition: Home, Self-Care Discharge Diagnosis: choledocolithiasis Referrals: Teri Rodrigues MD [Primary Care Provider, Internal Medicine] - 1 Week John Chavez MD [Physician, General Surgery] - 2 Weeks Discharge Medications: New oxycodone 5 mg tablet 5 mg PO Q4H PRN (Reason: pain (scale score 7-10)) Qty: 24 0RF Rx Instructions: Partial Fill upon patient request. docusate sodium [Colace] 100 mg capsule 100 mg PO BID Qty: 20 0RF Continued cholecalciferol (vitamin D3) 50 mcg (2,000 unit) capsule 50 mcg PO DAILY Discharge Orders: Discharge Order (Routine); Ordered 01/31/25 Ordered By: Lillian Valladares Diet: Low fat, low cholesterol Activity on Discharge: No heavy lifting Stand Alone Forms: Patient Portal Discharge page Print Language: Upper Sorbian Activity Restrictions/Additional Instructions: If the incision area is tender, you may apply an ice pack for short intervals (No more than 20 minutes on, followed by at least 20 minutes off). Do not apply heat. Do not use creams, lotions, or topical antibiotics. Ok to shower. Remove clear dressings 3 days following your procedure. You have steri strips (small white strips) covering your incision- these will fall off ~1 week. No heavy lifting (>10lbs) or strenuous activity! Take Tylenol Extra-strength 1-2 tabs every 6 hours for the first day, then as needed. Oxycodone every 6-8 hours as needed for pain. Colace 100 mg every day as needed for constipation. Follow up in office with Dr. Chavez in 1-2 weeks. ([phone]) Call Your Doctor If: -Your temperature exceeds 101.5? F -You experience excessive pain or swelling -You have an unexpected reaction to medication -You have excessive bleeding -You experience continued vomiting/nausea -Your incision begins to separate -Your incision shows signs of infection such as increased redness, swelling, excessive pain, drainage (light blood or clear fluid is normal) or heat Care Plan Goals: Return to baseline health and resume normal activities following recovery period. Health Concerns: choledocolithiasis Plan of Treatment: s/p ERCP s/p laparoscopic cholecystectomy Follow up in the office in 1-2 weeks Pain control Assessment: Doing well post op.
--- NOTE | 2025-01-31 13:20 | MHC.CM.PN ---
Patient medically cleared for dc home self care via private transport.
== END 2025-01-31 13:37 | disposition home or self-care (01) | DRG 419 ==
LOC: HO.ED 18:31 → HO.EDOVER 20:34 → HO.S3 21:12
PROVIDERS: Internal Medicine Gastroenterology; Physician Assistant; Physician Assistant Medical; Physician Assistant Surgical; Admitting Provider Internal Medicine; Emergency Provider Emergency Medicine; PCP Internal Medicine; Visit Provider Surgery
PROC: 0FCC8ZZ Extirpation of Matter from Ampulla of Vater, Via Natural or Artificial Opening Endoscopic (ICD-10-PCS; CPT 43260; principal; 2025-01-28 15:10)
PROC: 0FT44ZZ Resection of Gallbladder, Percutaneous Endoscopic Approach (ICD-10-PCS; CPT 47562; principal; 2025-01-30 08:30)
DX: K80.70 Calculus of gallbladder and bile duct without cholecystitis without obstruction (principal); E78.00 Pure hypercholesterolemia, unspecified; Z87.891 Personal history of nicotine dependence; Z79.899 Other long term (current) drug therapy
CPT/HCPCS: 36415; 74177; 76705; 80048; 80053; 80061; 80076; 83690; 83735; 84443; 84484; 84702; 85025; 85610; 86850; 86900; 86901; 88304; 93005; 99285; C1726; J0131; J0360; J0616; J0737; J0744; J1171; J1836; J1920; J2003; J2004; J2250; J2270; J2371; J2405; J2704; J2795; J3010; J7120; Q9967

== ENCOUNTER → 2025-01-27 16:44 | Outpatient (BNV) | payer OTHER, SELFPAY | PROVIDERS: Emergency Provider Emergency Medicine; Visit Provider Radiology Diagnostic Radiology | DX: K80.20 Calculus of gallbladder without cholecystitis without obstruction (principal); K80.50 Calculus of bile duct without cholangitis or cholecystitis without obstruction; R10.11 Right upper quadrant pain | CPT/HCPCS: 74177; 76705 ==

== ENCOUNTER → 2025-01-27 16:45 | Outpatient (BNV) | payer OTHER, SELFPAY | PROVIDERS: Admitting Provider Internal Medicine; Emergency Provider Emergency Medicine; PCP Internal Medicine; Visit Provider Internal Medicine Cardiovascular Disease | DX: R00.1 Bradycardia, unspecified (principal) | CPT/HCPCS: 93010 ==

== ENCOUNTER → 2025-01-27 20:29 | Outpatient (BNV) | payer OTHER, SELFPAY | PROVIDERS: Admitting Provider Internal Medicine; Emergency Provider Emergency Medicine; PCP Internal Medicine; Visit Provider Internal Medicine Gastroenterology | DX: K80.50 Calculus of bile duct without cholangitis or cholecystitis without obstruction (principal); R10.13 Epigastric pain | CPT/HCPCS: 43262; 74300; 99222 ==

== ENCOUNTER → 2025-01-27 20:29 | Outpatient (BNV) | payer OTHER, SELFPAY | PROVIDERS: Admitting Provider Internal Medicine; Emergency Provider Emergency Medicine; PCP Internal Medicine; Visit Provider Internal Medicine | DX: K80.50 Calculus of bile duct without cholangitis or cholecystitis without obstruction (principal) | CPT/HCPCS: 99232 ==

== ENCOUNTER → 2025-01-27 20:29 | Outpatient (BNV) | payer OTHER, SELFPAY | PROVIDERS: Admitting Provider Internal Medicine; Emergency Provider Emergency Medicine; PCP Internal Medicine; Visit Provider Physician Assistant Surgical | DX: K80.50 Calculus of bile duct without cholangitis or cholecystitis without obstruction (principal) | CPT/HCPCS: 99499 ==

== ENCOUNTER 2025-02-09 09:11 | Outpatient (AMB) | payer OTHER, SELFPAY ==
--- NOTE | 2025-02-09 09:18 | MHC.OFFVIS ---
Vital Signs 02/09/25 09:24 Height 5 ft 2 in Weight 173 lb 6 oz BMI 31.7 Intake Visit Reasons: s/p Lap Tosha Intake Note: This patient presents for post-op assessment status post lap tosha.( ) Pt c/o; reports no complaints pertaining to surgery. 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 Denies significant pain. Reports incision sites have been healing well, Steri-Strips remain in place. Denies bleeding or drainage from the area. Denies fevers at home. Appetite at baseline, slowly introducing foods. States typically she has a bowel movement after eating which has changed a little bit since the procedure but she still has bowel movements daily. Denies nausea or vomiting. 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 Plans to return after the holiday. Continues to avoid heavy lifting [facility] Medical History Cholelithiasis Surgical History (Updated 02/09/25 @ 09:45 by Dipak Goncalves PA-C) Hx laparoscopic cholecystectomy (~01/30/25) History of colposcopy Hx of colonoscopy History of repair of ACL (07/20/23) Family History Mother Diabetes Father Prostate cancer Paternal Uncle Colon cancer Social History Household Members: Significant Other Household Members Other:: execise 3 x a week Housing: House Do you presently have visiting nurse or other home services: No Alcohol intake: current Alcohol intake frequency: holidays/special occasions only Alcohol type: other Comment: twisted teas Patient Tobacco Use Status: Former Tobacco user e-Cigarette/Vaping Use: Never Used service: No Current occupational status: employed 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 Inspection: No distended Palpation (GI): Soft to palpation and nontender Neuro General: patient oriented x3 Assessment & Plan Assessment & Plan (1) S/P laparoscopic cholecystectomy: Code(s): Z90.49 - Acquired absence of other specified parts of digestive tract Category: Medical Plan 44-year-old female s/p laparoscopic cholecystectomy with Dr. Valladares on 01/30/2025 returning for follow-up. Patient doing well overall. Denies pain, appetite bowel function at baseline. Abdomen exam is soft, benign incision sites are well healed, no evidence of infection. Surgical pathology reviewed, showing chronic cholecystitis. At this point will continue with activity restrictions until March 01. Patient is okay to return to work with light duty is likely she is not doing any heavy lifting on February 15. No longer requiring scheduled follow-up, can follow up as needed with any concerns in the future. Coding Level of Care Code Global (60025) Diagnoses S/P laparoscopic cholecystectomy Z90.49
[2025-02-09 09:24] VITALS: BMI 31.7
== END 2025-02-09 09:30 | disposition home or self-care (01) ==
LOC: HO.HGS 09:12
PROVIDERS: PCP Internal Medicine
DX: Z90.49 Acquired absence of other specified parts of digestive tract (principal)
CPT/HCPCS: 99024